=== PATIENT | female | born 1940 | race Caucasian/White ===

== ENCOUNTER → 2017-04-10 | Outpatient (CLI) | payer MEDICARE ==
--- NOTE | 2017-04-10 16:50 | US ---
EXAMINATION TYPE: US thyroid st tissue head/neck DATE OF EXAM: 04/10/2017 COMPARISON: 2013 CLINICAL HISTORY: E04.9 Goiter. GLAND SIZE: Right Lobe: 3.6 x 1.6 x 1.3 cm Overall Parenchyma: homogenous Left Lobe: 3.2 x 1.3 x 1.5 cm Overall Parenchyma: heterogeneous slightly Isthmus Thickness: 0.2 cm NODULES RIGHT: # of nodules measured on right: 1. 0.5 X 0.3 x 0.5 cm mixed nodule at the lower pole with well-defined margins; . This nodule is w ider than tall and shows no intranodular vascularity. Prior size: 0.5 x 0.3 x 0.5 cm 2. 0.5 X 0.5 x 0.4 cm solid nodule at the mid pole with well-defined margins; . This nodule is roun d and shows no intranodular vascularity. Prior size: no prior LEFT: # of nodules measured on left: 0 ISTHMUS: # of nodules measured in the isthmus:0 1Bilateral neck scanned, no evidence of lymphadenopathy. IMPRESSION: Stable solid hypoechoic 5 mm left thyroid nodule with additional 5 mm cystic nodule now visualized.
== END | disposition home or self-care (01) ==
LOC: RADUSWWP 15:56
PROVIDERS: ATTEND Family Medicine
DX: E04.2 Nontoxic multinodular goiter (principal)
CPT/HCPCS: 76536

== ENCOUNTER → 2017-11-17 | Outpatient (CLI) | payer MEDICARE ==
--- NOTE | 2017-11-17 14:28 | US ---
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 Goiter, follow up thyroid nodules Technique: Multiple sonographic images of the thyroid gland are obtained. FINDINGS: Right Lobe: 3.2 x 1.8 x 1.5 cm Overall Parenchyma: homogenous Left Lobe: 4.1 x 1.6 x 1.9 cm Overall Parenchyma: homogeneous Isthmus Thickness: 0.3 cm NODULES RIGHT: # of nodules measured on right: 2 1. 6 x 5 x 4 mm mixed nodule at the upper/mid pole with well-defined margins; . This nodule is wider than tall and shows no intranodular vascularity. Prior size: 0.5 x 0.5 x 0.4 cm 2. 0.4 X 0.3 x 0.4 cm mixed nodule at the lower pole with well-defined margins; suspected colloid cy st. This nodule is wider than tall and shows no intranodular vascularity. Prior size: 0.5 x 0.3 x 0.5 cm LEFT: # of nodules measured on left: 0 ISTHMUS: # of nodules measured in the isthmus: 0 Bilateral neck scanned, no evidence of lymphadenopathy. 2 nodules measured right thyroid lobe IMPRESSION: 2 nodules redemonstrated in the right lobe, the smaller measuring 4 mm is suspected to represent a co lloid cyst. The larger in the upper pole is relatively stable at 6 x 5 mm (versus 5 x 5 mm, previousl y) and is a mixed nodule. It does not meet criteria for FNA.
== END | disposition home or self-care (01) ==
LOC: RADUSWWP 13:12
PROVIDERS: ATTEND Family Medicine
DX: E04.2 Nontoxic multinodular goiter (principal)
CPT/HCPCS: 76536

== ENCOUNTER → 2018-12-09 | Outpatient (CLI) | payer MEDICARE ==
--- NOTE | 2018-12-10 09:18 | US ---
EXAMINATION TYPE: US thyroid st tissue head/neck DATE OF EXAM: 12/09/2018 COMPARISON: US 11/17/2017 CLINICAL HISTORY: 78-year-old female I65.23 Carotid Atherosclerosis, E04.2 Goiter. Follow up nodules TECHNIQUE: Multiple sonographic images of the thyroid gland are obtained. FINDINGS: GLAND SIZE: Right Lobe: 3.4 x 1.4 x 1.9 cm Overall Parenchyma: homogenous Left Lobe: 3.1 x 1.4 x 1.7 cm Overall Parenchyma: homogeneous Isthmus Thickness: 0.5 cm NODULES RIGHT: # of nodules measured on right: 2 1. 0.7 X 0.6 x 0.5 cm hypoechoic complex solid cystic nodule at the upper/mid pole with well-define d margins. This nodule is wider than tall and shows no intranodular vascularity. Prior size: 0.6 x 0.5 x 0.4 cm 2. 5 x 4 x 3 mm colloid cyst at the lower pole with well-defined margins. This nodule is wider than tall and shows no intranodular vascularity. Prior size: 4 x 4 x 3 mm LEFT: # of nodules measured on left: 0 ISTHMUS: # of nodules measured in the isthmus: 0 Bilateral neck scanned, no evidence of lymphadenopathy. IMPRESSION: 1. A 7 x 6 x 5 mm complex solid cystic nodule at the right upper and midpole is stable 2 mm larger in each dimension (6 x 5 x 4 mm, previously). Additional follow-up can be considered. 2. The other nodule on the right measures 5 mm and has the appearance of a benign colloid cyst.
--- NOTE | 2018-12-10 10:24 | US ---
EXAMINATION TYPE: US carotid duplex BILAT DATE OF EXAM: 12/09/2018 COMPARISON: NONE CLINICAL HISTORY: 78-year-old female I65.23 Carotid Atherosclerosis, E04.2 Goiter. TECHNIQUE: Carotid duplex ultrasound examination. Direct Doppler criteria was utilized. FINDINGS: EXAM MEASUREMENTS: RIGHT: Peak Systolic Velocity (PSV) cm/sec ----- Right CCA: 108.0 ----- Right ICA: 101.0 ----- Right ECA: 135 ICA/CCA ratio: 0.9 RIGHT: End Diastole cm/sec ----- Right CCA: 14.9 ----- Right ICA: 18.3 ----- Right ECA: 14.3 LEFT: Peak Systolic Velocity (PSV) cm/sec ----- Left CCA: 97.8 ----- Left ICA: 107.0 ----- Left ECA: 120.0 ICA/CCA ratio: 1.1 LEFT: End Diastole cm/sec ----- Left CCA: 14.3 ----- Left ICA: 16.3 ----- Left ECA: 12.2 VERTEBRALS (direction of flow): Right Vertebral: Antegrade Left Vertebral: Antegrade Rhythm: Normal Sand Technician notes: Mild amount of plaque visualized at bilateral bulbs. No elevated velocities, no si gnificant stenosis. IMPRESSION: No hemodynamically significant stenosis appreciated in either internal carotid artery. Criteria for Assigning % of Stenosis / Diameter reduction (Estimation based on the indirect measurements of the internal carotid artery velocities (ICA PSV). 1. Normal (no stenosis)=ICA PSV < 125 cm/s: ratio < 2.0: ICA EDV<40 cm/s. 2. Less than 50% stenosis=ICA PSV < 125 cm/s: ratio < 2.0: ICA EDV<40 cm/s. 3. 50 to 69% stenosis=ICA PSV of 125 to 230 cm/s: ration 2.0 ? 4.0: ICA EDV 40-100 cm/s. 4. Greater than 70% stenosis to near occlusion= ICA PSV > 230 cm/s: ratio > 4.0: ICA EDV > 100 cm/s. 5. Near occlusion= ICA PSV velocities may be low or undetectable: variable ratio and ICA EDV. 6. Total occlusion=unable to detect flow.
== END | disposition home or self-care (01) ==
LOC: RADUSWWP 16:14
PROVIDERS: ATTEND Family Medicine
DX: E04.2 Nontoxic multinodular goiter (principal); I65.23 Occlusion and stenosis of bilateral carotid arteries
CPT/HCPCS: 76536; 93880

== ENCOUNTER → 2019-09-09 | Outpatient (CLI) | payer MEDICARE ==
--- NOTE | 2019-09-10 06:52 | US ---
EXAMINATION TYPE: US carotid duplex BILAT DATE OF EXAM: 09/09/2019 COMPARISON: Carotid ultrasound December 09, 2018 CLINICAL HISTORY: E04.9 Thryoid nodule, I65.23 Carotid stenosis. Dizziness EXAM MEASUREMENTS: RIGHT: Peak Systolic Velocity (PSV) cm/sec ----- Right CCA: 70.3 ----- Right ICA: 103.0 ----- Right ECA: 127.0 ICA/CCA ratio: 1.5 RIGHT: End Diastole cm/sec ----- Right CCA: 13.6 ----- Right ICA: 21.5 ----- Right ECA: 15.5 LEFT: Peak Systolic Velocity (PSV) cm/sec ----- Left CCA: 79.8 ----- Left ICA: 122.4 ----- Left ECA: 125.0 ICA/CCA ratio: 1.5 LEFT: End Diastole cm/sec ----- Left CCA: 14.9 ----- Left ICA: 26.7 ----- Left ECA: 11.1 VERTEBRALS (direction of flow): Right Vertebral: Antegrade Left Vertebral: Antegrade Rhythm: Normal Mild plaque bilateral bifurcations. No evidence of significant stenosis IMPRESSION: No hemodynamically significant stenosis in either internal carotid artery. No significan t change from prior ultrasound. Criteria for Assigning % of Stenosis / Diameter reduction (Estimation based on the indirect measurements of the internal carotid artery velocities (ICA PSV). 1. Normal (no stenosis)=ICA PSV < 125 cm/s: ratio < 2.0: ICA EDV<40 cm/s. 2. Less than 50% stenosis=ICA PSV < 125 cm/s: ratio < 2.0: ICA EDV<40 cm/s. 3. 50 to 69% stenosis=ICA PSV of 125 to 230 cm/s: ration 2.0 ? 4.0: ICA EDV 40-100 cm/s. 4. Greater than 70% stenosis to near occlusion= ICA PSV > 230 cm/s: ratio > 4.0: ICA EDV > 100 cm/s. 5. Near occlusion= ICA PSV velocities may be low or undetectable: variable ratio and ICA EDV. 6. Total occlusion=unable to detect flow.
--- NOTE | 2019-09-10 06:55 | US ---
EXAMINATION TYPE: US thyroid st tissue head/neck DATE OF EXAM: 09/09/2019 COMPARISON: Thyroid ultrasound December 09, 2018 CLINICAL HISTORY: E04.9 Thryoid nodule, I65.23 Carotid stenosis. follow up thyroid nodules GLAND SIZE: Right Lobe: 3.4 x 1.8 x 1.9 cm Overall Parenchyma: homogenous Left Lobe: 4.3 x 1.5 x 2.0 cm Overall Parenchyma: homogeneous Isthmus Thickness: 0.3 cm NODULES RIGHT: # of nodules measured on right: 2 1. 0.8 X 0.5 x 0.5 cm mixed nodule at the upper/mid pole with well-defined margins; . This nodule is wider than tall and shows no intranodular vascularity. Prior size: 0.7 x 0.6 x 0.5 cm 2. 0.4 X 0.3 x 0.4 cm colloid cystic nodule at the lower pole with well-defined margins; . This no dule is wider than tall and shows no intranodular vascularity. Prior size: 0.5 x 0.4 x 0.3 cm LEFT: # of nodules measured on left: 0 ISTHMUS: # of nodules measured in the isthmus: 0 Bilateral neck scanned, no evidence of lymphadenopathy. There is homogeneous slightly small size thyroid with scattered small right-sided nodules redemonstra danitza. IMPRESSION: As above. No significant change from most recent ultrasound. No greater than 1 cm nodules identified.
== END | disposition home or self-care (01) ==
LOC: RADUSWWP 16:08
PROVIDERS: ATTEND Family Medicine
DX: E04.1 Nontoxic single thyroid nodule (principal); I65.23 Occlusion and stenosis of bilateral carotid arteries
CPT/HCPCS: 76536; 93880

== ENCOUNTER → 2020-02-03 | Outpatient (CLI) | payer MEDICARE ==
--- NOTE | 2020-02-03 08:38 | US ---
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 GLAND SIZE: Right Lobe: 3.9 x 1.7 x 1.2 cm Overall Parenchyma: homogenous Left Lobe: 4.2 x 1.9 x 2.2 cm Overall Parenchyma: homogeneous Isthmus Thickness: 0.3 cm NODULES RIGHT: # of nodules measured on right: 2 1. 0.7 X 0.5 x 0.6 cm mixed nodule at the upper/mid pole with well-defined margins. This nodule is w ider than tall and shows no intranodular vascularity. Prior size: 0.8 x 0.5 x 0.5 cm 2. 0.4 X 0.3 x 0.4 cm cystic nodule at the lower pole with well- defined margins . This nodule is wi talib than tall and shows no intranodular vascularity. Prior size: 0.4 x 0.3 x 0.4 cm LEFT: # of nodules measured on left: 0 ISTHMUS: # of nodules measured in the isthmus: 0 Bilateral neck scanned, no evidence of lymphadenopat hy. There is homogeneous slightly small size thyroid with scattered small right- sided nodules redemo nstrated. Bilateral neck scanned, no evidence of lymphadenopathy. Normal size and fairly homogeneous thyroid with few small right-sided nodules. No definitive greater than 1 cm or enlarging nodules. IMPRESSION: Overall stable findings. No suspicious greater than 1 cm nodules.
== END | disposition home or self-care (01) ==
LOC: RADUSWWP 07:31
PROVIDERS: ATTEND Family Medicine
DX: E04.2 Nontoxic multinodular goiter (principal)
CPT/HCPCS: 76536

== ENCOUNTER 2020-05-25 10:44 | Day surgery (SDC) | payer MEDICARE ==
[2020-05-24 08:59] VITALS: BMI 36.8
[~2020-05-25 10:44] MED LIST: ALPRAZolam 0.25 MG TAB PO PRN; ALPRAZolam 0.5 MG TAB PO PRN; ASPIRIN 325 MG TAB PO STA; ATORVASTATIN 80 MG TAB PO STA; NITROGLYCERIN SL TABS 0.4 MG TAB SUBLINGUAL PRN; SODIUM CHLORIDE 0.9% 1,000 ML in EMPTY BAG 1 BAG IV ONE
[2020-05-25] MEDS ORDERED: SODIUM CHLORIDE 0.9% 1,000 ML IV ONE (11:12)
[2020-05-25 11:14] LABS: Glucose,Whole Blood 148 mg/dL (75-99)
[2020-05-25 11:24] VITALS: RESP 16; TEMP 98.8
[2020-05-25] MEDS ORDERED: fentaNYL (PF) 50 MCG/ML 2 ML AMP IV ONE (12:21)
[2020-05-25] MEDS ORDERED: LIDOCAINE 1% INJ 10MG/ML (20 ML MDV) SQ ONE (12:24)
[2020-05-25] MEDS ORDERED: MIDAZOLAM 2 MG/2 ML VIAL IV ONE (12:25)
[2020-05-25] MEDS ORDERED: VERAPAMIL SYRINGE (5 MG/10 ML) INTRAARTER ONE (12:27)
[2020-05-25] MEDS ORDERED: HEPARIN SODIUM 1,000 UN/ML (10ML VL) IV ONE (12:33)
[2020-05-25] MEDS ORDERED: IOPAMIDOL-370 125ML BTL INJ ONE (12:38)
[2020-05-25] MEDS ORDERED: RX INFO: IV CONTRAST WAS GIVEN 1 EACH MISC MISCELLANE PRN (12:52)
[2020-05-25] MEDS ORDERED: SODIUM CHLORIDE 0.9% 1,000 ML IV SCH (13:00)
--- NOTE | 2020-05-25 14:42 | CC ---
CARDIAC CATHETERIZATION REPORT Mrs. Case is a 79-year-old female with known history of hypertension, hyperlipidemia, diabetes mellitus, who has been complaining of progressive symptoms of dyspnea on exertion. As part of her evaluation, she underwent myocardial perfusion imaging that revealed evidence of inducible ischemia. In view of that, recommendation made regarding cardiac catheterization. The procedures, risks, and complication were discussed with the patient who is in full understanding and agreement. 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 Using Xylocaine anesthesia and Seldinger technique, a 6-Haitian sheath was introduced in the right radial artery. Selective right and left coronary angiography performed using 5-Haitian 4 bend right and left Ashley catheter, multiple views of the coronary artery including hemiaxial views were obtained. Following that, the right Ashley catheter was used to cross the aortic valve, end-diastolic pressure was calculated. Following that, catheter and sheaths were removed. Hemostasis was obtained with deployment of a TR band. There was no immediate complication. Patient is returned to her room in stable condition. Of note, the patient received 5000 units of intravenous heparin as well as intra-arterial verapamil. FINDINGS: LEFT MAIN: This is a short size vessel, trifurcating into left circumflex, ramus intermedius and left anterior descending artery. Left main coronary artery has no evidence of high-grade stenosis. LEFT ANTERIOR DESCENDING ARTERY: This is a large-sized vessel, reaching toward the apex. Tapers down distal third. The left anterior descending artery as well as branches have no evidence of high-grade stenosis. RAMUS INTERMEDIUS: This is a large-sized vessel, reaching to the apical lateral wall. The ramus intermedius has no evidence of high-grade stenosis. LEFT CIRCUMFLEX: This is a nondominant large size vessel, giving rise to a large obtuse marginal branch. The left circumflex as well as branches have no evidence of obstructive coronary artery disease. RIGHT CORONARY ARTERY: This is a large dominant vessel, bifurcating distally into PDA and posterolateral segment and branches. The right coronary artery in mid segment has 10% to 20% plaque. The rest of the vessel has no high-grade stenosis. LEFT VENTRICULOGRAM: Left ventriculogram was not performed. HEMODYNAMICS: There was no gradient across the aortic valve. The left ventricular end- diastolic pressure was 12-14 mmHg. CONCLUSION: 1. 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 2. Mild calcification of the LAD. RECOMMENDATION: In view of finding anatomy, I recommend continue medical therapy with aggressive risk modifications being initiated. Those findings and recommendation were discussed with the patient and her family and they are in full understanding and agreement. MMBHUMI / JAYDEN: [id number] /
[2020-05-25 14:47] VITALS: BP 131/55; PULSE 87
[2020-05-25] MEDS ORDERED: REPAGLINIDE 1 MG TAB PO SCH (17:30)
[2020-05-25] MEDS ORDERED: INSULIN DETEMIR (LEVEMIR) 100 UNIT/ML SYR SQ SCH (21:00)
[2020-05-26] MEDS ORDERED: PANTOPRAZOLE 40 MG TABLET PO SCH (07:30)
[2020-05-26] MEDS ORDERED: PIOGLITAZONE 45 MG TAB PO SCH (09:00)
[2020-05-26] MEDS ORDERED: amLODIPine 5 MG TAB PO SCH (09:00)
[2020-05-26] MEDS ORDERED: ASPIRIN 81 MG PO SCH (09:00)
[2020-05-26] MEDS ORDERED: LOSARTAN 50 MG TAB PO SCH (09:00)
[2020-05-27] MEDS ORDERED: ATORVASTATIN 10 MG TAB PO SCH (09:00)
== END 2020-05-25 16:20 | disposition home or self-care (01) ==
LOC: CATHCVL 10:44
PROVIDERS: ATTEND Internal Medicine Interventional Cardiology
DX: I25.10 Atherosclerotic heart disease of native coronary artery without angina pectoris (principal); I25.84 Coronary atherosclerosis due to calcified coronary lesion; I10 Essential (primary) hypertension; E78.00 Pure hypercholesterolemia, unspecified; E11.9 Type 2 diabetes mellitus without complications; E78.2 Mixed hyperlipidemia; R94.39 Abnormal result of other cardiovascular function study; G47.30 Sleep apnea, unspecified; Z90.10 Acquired absence of unspecified breast and nipple; Z90.710 Acquired absence of both cervix and uterus; Z98.890 Other specified postprocedural states; Z87.891 Personal history of nicotine dependence; Z79.82 Long term (current) use of aspirin; Z79.4 Long term (current) use of insulin; Z79.899 Other long term (current) drug therapy; Z88.1 Allergy status to other antibiotic agents
CPT/HCPCS: 93458; C1769 ×2; C1894; J2250; J2001; J3010; J1644; Q9967

== ENCOUNTER 2020-12-03 20:02 | Inpatient (IN) | payer MEDICARE ==
[2020-12-03] MEDS ORDERED: SODIUM CHLORIDE 0.9% 1,000 ML IV STA (20:30)
[2020-12-03 21:18] LABS: Calcium 9.8 mg/dL (8.4-10.2)
[2020-12-03 21:21] LABS: INR 2.4 (<1.2); Partial Thromboplastin Time 28.8 sec (22.0-30.0)
[2020-12-03 21:34] LABS: Albumin 3.2 g/dL (3.5-5.0); Magnesium 1.8 mg/dL (1.6-2.3); Potassium 5.6 mmol/L (3.5-5.1); Total Bilirubin 3.2 mg/dL (0.2-1.3); Total Protein 7.5 g/dL (6.3-8.2)
--- NOTE | 2020-12-03 21:45 | XR ---
EXAMINATION TYPE: XR chest 2V DATE OF EXAM: 12/03/2020 COMPARISON: NONE HISTORY: Weakness TECHNIQUE: 2 views FINDINGS: Heart is enlarged. There is pulmonary interstitial and airspace edema. There is blunting of costophrenic angles. There are chest leads. IMPRESSION: Cardiomegaly with some pulmonary edema. This could relate to congestive heart failure or interstitial pneumonia.
[2020-12-03 22:31] LABS: Anisocytosis Slight; HCT 42.1 % (34.0-46.0); HGB 12.8 gm/dL (11.4-16.0); Hypochromasia Marked; MCH 24.1 pg (25.0-35.0); MCHC 30.4 g/dL (31.0-37.0); MCV 79.3 fL (80.0-100.0); Mean Platelet Volume 9.6; Platelet Count 136 k/uL (150-450); Poikilocytosis Slight; RBC 5.32 m/uL (3.80-5.40); RDW 16.8 % (11.5-15.5); WBC 16.8 k/uL (3.8-10.6)
[2020-12-03 22:56] LABS: Appearance,Urine Cloudy (Clear); Bacteria,Urine Few /hpf; Bilirubin,Urine Negative (Negative); Blood,Urine Negative (Negative); Cellular Casts,Urine 3 /lpf (0); Color,Urine Yellow; Glucose,Urine (UA) Negative (Negative); Hyaline Casts,Urine 30 /lpf (0-2); Ketones,Urine Trace (Negative); Leukocyte Esterase,Urine Large (Negative); Mucus,Urine Rare /hpf; Nitrite,Urine Negative (Negative); PH, Urine 5.5 (5.0-8.0); Protein,Urine Trace (Negative); RBC,Urine 10 /hpf (0-5); Squamous Epithelial Cell,Urine 13 /hpf (0-4); WBC,Urine 20 /hpf (0-5)
--- NOTE | 2020-12-03 23:13 | ED ---
Weakness HPI - General Chief complaint: Weakness Stated complaint: weakness Time Seen by Provider: 12/03/20 20:05 Source: patient, EMS Mode of arrival: ambulatory Limitations: no limitations - History of Present Illness Initial comments: 80-year-old female presents with history of diabetes, breast cancer, high blood pressure, fatty liver who presents emergency Department with reported generalized weakness. Patient reports that she has felt weak for the past one week. Today the patient sustained a fall. Denies hitting her head or losing consciousness. She lives with her son who witnessed this however was unable to get her up. This was called and they found the patient to have a low blood pressure reading. Patient arrives and is found to have normal vital signs. States that she's had a decreased oral intake. States she hasn't been eating or drinking as she doesn't have an appetite. Denies weight loss. No abdominal pain. Denies chest pain or cough. No fevers or chills. Denies vomiting. She denies any injuries from the fall. No pain in her arms or legs. No sick contacts. No other alleviating, precipitating or modifying factors - Related Data Home Medications Medication Instructions Recorded Confirmed Aspirin 81 mg PO DAILY 01/25/15 12/03/20 Cholecalciferol [Vitamin D3] 1,000 unit PO DAILY 01/25/15 12/03/20 Furosemide [Lasix] 20 mg PO Q48H 01/25/15 12/03/20 Omeprazole [PriLOSEC] 20 mg PO DAILY 01/25/15 12/03/20 Potassium Chloride [Klor-Con 20] 10 meq PO Q48H 01/25/15 12/03/20 metFORMIN HCL [Glucophage] 500 mg PO BID 01/25/15 12/03/20 Insulin Glargine [Lantus] 22 unit SQ HS 05/24/20 12/03/20 Pioglitazone HCl 45 mg PO DAILY 05/24/20 12/03/20 amLODIPine [Norvasc] 5 mg PO DAILY 05/24/20 12/03/20 Losartan Potassium 100 mg PO DAILY 12/03/20 12/03/20 Simvastatin [Zocor] 20 mg PO DAILY 12/04/20 12/04/20 Allergies Allergy/AdvReac Type Severity Reaction Status Date / Time cefazolin sodium [From [facility] [place]] Allergy Itching/hiv Verified 12/03/20 22:45 es Review of Systems ROS Statement: Those systems with pertinent positive or pertinent negative responses have been documented in the HPI. ROS Other: All systems not noted in ROS Statement are negative. Past Medical History Past Medical History: Cancer, Diabetes Mellitus, GERD/Reflux, Hyperlipidemia, Hypertension, Liver Disease, Skin Disorder, Sleep Apnea/CPAP/BIPAP Additional Past Medical History / Comment(s): hx. "fatty liver", hx breast cancer, HIALTAL HERNIA, "little lumps on chest", thyroid nodule, urinary leakage History of Any Multi-Drug Resistant Organisms: None Reported Past Surgical History: Breast Surgery, Hysterectomy Additional Past Surgical History / Comment(s): consuelo. mastectomy, surgery on vocal cords to remove lumps, consuelo cataract surgery with lens implants Past Anesthesia/Blood Transfusion Reactions: No Reported Reaction Past Psychological History: No Psychological Hx Reported Smoking Status: Former smoker Past Alcohol Use History: None Reported Past Drug Use History: None Reported - Past Family History Mother Family Medical History: No Reported History General Exam Limitations: altered mental status (poor historian) General appearance: alert, in no apparent distress Head exam: Present: atraumatic, normocephalic, normal inspection Eye exam: Present: normal appearance, PERRL, EOMI. Absent: scleral icterus, conjunctival injection, periorbital swelling ENT exam: Present: normal exam, mucous membranes moist Neck exam: Present: normal inspection. Absent: tenderness, meningismus, lympha denopathy Respiratory exam: Present: normal lung sounds bilaterally. Absent: respiratory distress, wheezes, rales, rhonchi, stridor Cardiovascular Exam: Present: regular rate, normal rhythm, normal heart sounds. Absent: systolic murmur, diastolic murmur, rubs, gallop, clicks GI/Abdominal exam: Present: soft, normal bowel sounds. Absent: distended, tenderness, guarding, rebound, rigid Extremities exam: Present: normal inspection, full ROM, normal capillary refill. Absent: tenderness, pedal edema, joint swelling, calf tenderness Back exam: Present: normal inspection Neurological exam: Present: alert, oriented X3, CN II-XII intact Psychiatric exam: Present: normal affect, normal mood Skin exam: Present: warm, dry, intact, normal color. Absent: rash Course Vital Signs 12/03/20 12/03/20 12/04/20 20:05 23:00 03:33 Temperature 97.8 F Pulse Rate 92 95 96 Respiratory 18 18 22 Rate Blood Pressure 146/64 143/59 140/64 O2 Sat by Pulse 96 92 L 95 Oximetry 12/04/20 12/04/20 12/04/20 06:00 07:27 12:30 Temperature 98.9 F Pulse Rate 75 97 79 Respiratory 19 18 18 Rate Blood Pressure 131/64 140/73 115/55 O2 Sat by Pulse 94 L 95 100 Oximetry 12/04/20 17:36 Temperature Pulse Rate 89 Respiratory 16 Rate Blood Pressure 122/89 O2 Sat by Pulse 98 Oximetry EKG Findings - EKG Comments: EKG Findings:: EKG demonstrates a sinus rhythm with a ventricular rate 93. NJ interval 140. QRS 130. QTC at 537. Right bundle branch block. No acute ST segment elevations Medical Decision Making - Medical Decision Making On arrival patient is placed into room 1. Thorough history and physical exam was performed. IV is established and the patient is given a liter bolus of normal saline followed by 75 mL per hour. Patient denies history of heart disease. Laboratory studies are conducted. Patient is a white count of 16.8. INR 2.4. Elevated bilirubin at 3.2. AST 726, AST 301. Urinalysis demonstrates large leukocyte esterase with few bacteria. Covid is not detected. Chest x-ray demonstrates cardiomegaly with some pulmonary edema. Due to the elevated liver enzymes the patient is sent over for CT for abdomen and pelvis which demonstrates extensive interstitial nodular pulmonary infiltrates. Significant heterogenicity throughout the liver. Possible lymphangitic metastatic disease in the lungs. Hepatic metastatic disease also possible. Consider severe hepatitis. Gallbladder suggestive of cholecystitis. Blood cultures are obtained and the patient is initiated on Levaquin and Flagyl. A bladder ultrasound is ordered. I spoke with Dr. Oviedo who agreed to admit the patient. I will place GI and surgery on consult. Patient made NPO. She remained in stable condition awaiting a bed - Lab Data Result diagrams: 12/09/20 03:00 12/09/20 03:00 Lab Results 12/03/20 12/03/20 12/03/20 Range/Units 20:55 20:55 20:55 WBC (3.8-10.6) k/uL RBC (3.80-5.40) m/uL Hgb (11.4-16.0) gm/dL Hct (34.0-46.0) % MCV (80.0-100.0) fL MCH (25.0-35.0) pg MCHC (31.0-37.0) g/dL RDW (11.5-15.5) % Plt Count (150-450) k/uL MPV Neutrophils % (Manual) % Band Neuts % (Manual) % Lymphocytes % (Manual) % Monocytes % (Manual) % Eosinophils % (Manual) % Neutrophils # (Manual) (1.3-7.7) k/uL Lymphocytes # (Manual) (1.0-4.8) k/uL Monocytes # (Manual) (0-1.0) k/uL Eosinophils # (Manual) (0-0.7) k/uL Nucleated RBCs (0-0) /100 WBC Manual Slide Review Toxic Granulation Hypochromasia Poikilocytosis Poikilocytosis (manual Anisocytosis Anisocytosis (manual) Target Cells Ovalocytes Crenated Cell Fragmented RBCs PT 23.0 H (9.0-12.0) sec INR 2.4 H (<1.2) APTT 28.8 (22.0-30.0) sec Sodium 137 (137-145) mmol/L Potassium 5.6 H (3.5-5.1) mmol/L Chloride 108 H (98-107) mmol/L Carbon Dioxide 12 L (22-30) mmol/L Anion Gap 17 mmol/L BUN 37 H (7-17) mg/dL Creatinine 0.90 (0.52-1.04) mg/dL Est GFR (CKD-EPI)AfAm 71 (>60 ml/min/1.73 sqM) Est GFR (CKD-EPI)NonAf 62 (>60 ml/min/1.73 sqM) Glucose 154 H (74-99) mg/dL Calcium 9.8 (8.4-10.2) mg/dL Magnesium 1.8 (1.6-2.3) mg/dL Total Bilirubin 3.2 H (0.2-1.3) mg/dL AST 726 H (14-36) U/L ALT 301 H (4-34) U/L Alkaline Phosphatase 240 H (38-126) U/L Creatine Kinase 61 (30-135) U/L Troponin I <0.012 (0.000-0.034) ng/mL NT-Pro-B Natriuret Pep pg/mL Total Protein 7.5 (6.3-8.2) g/dL Albumin 3.2 L (3.5-5.0) g/dL TSH 1.920 (0.465-4.680) mIU/L Urine Color Urine Appearance (Clear) Urine pH (5.0-8.0) Ur Specific [place] (1.001-1.035) Urine Protein (Negative) Urine Glucose (UA) (Negative) Urine Ketones (Negative) Urine Blood (Negative) Urine Nitrite (Negative) Urine Bilirubin (Negative) Urine Urobilinogen (<2.0) mg/dL Ur Leukocyte Esterase (Negative) Urine RBC (0-5) /hpf Urine WBC (0-5) /hpf Ur Squamous Epith Cells (0-4) /hpf Urine Bacteria (None) /hpf Cellular Casts (0) /lpf Hyaline Casts (0-2) /lpf Urine Mucus (None) /hpf Coronavirus (PCR) (Not Detectd) 12/03/20 12/03/20 12/03/20 Range/Units 20:55 22:09 22:30 WBC 16.8 H (3.8-10.6) k/uL RBC 5.32 (3.80-5.40) m/uL Hgb 12.8 (11.4-16.0) gm/dL Hct 42.1 (34.0-46.0) % MCV 79.3 L (80.0-100.0) fL MCH 24.1 L (25.0-35.0) pg MCHC 30.4 L (31.0-37.0) g/dL RDW 16.8 H (11.5-15.5) % Plt Count 136 L (150-450) k/uL MPV 9.6 Neutrophils % (Manual) 82 % Band Neuts % (Manual) 5 % Lymphocytes % (Manual) 5 % Monocytes % (Manual) 7 % Eosinophils % (Manual) 1 % Neutrophils # (Manual) 14.60 H (1.3-7.7) k/uL Lymphocytes # (Manual) 0.84 L (1.0-4.8) k/uL Monocytes # (Manual) 1.18 H (0-1.0) k/uL Eosinophils # (Manual) 0.17 (0-0.7) k/uL Nucleated RBCs 0 (0-0) /100 WBC Manual Slide Review Performed Toxic Granulation Present Hypochromasia Marked Poikilocytosis Slight Poikilocytosis (manual Present Anisocytosis Slight Anisocytosis (manual) Present Target Cells Present Ovalocytes Present Crenated Cell Present Fragmented RBCs Present PT (9.0-12.0) sec INR (<1.2) APTT (22.0-30.0) sec Sodium (137-145) mmol/L Potassium (3.5-5.1) mmol/L Chloride (98-107) mmol/L Carbon Dioxide (22-30) mmol/L Anion Gap mmol/L BUN (7-17) mg/dL Creatinine (0.52-1.04) mg/dL Est GFR (CKD-EPI)AfAm (>60 ml/min/1.73 sqM) Est GFR (CKD-EPI)NonAf (>60 ml/min/1.73 sqM) Glucose (74-99) mg/dL Calcium (8.4-10.2) mg/dL Magnesium (1.6-2.3) mg/dL Total Bilirubin (0.2-1.3) mg/dL AST (14-36) U/L ALT (4-34) U/L Alkaline Phosphatase (38-126) U/L Creatine Kinase (30-135) U/L Troponin I (0.000-0.034) ng/mL NT-Pro-B Natriuret Pep 370 pg/mL Total Protein (6.3-8.2) g/dL Albumin (3.5-5.0) g/dL TSH (0.465-4.680) mIU/L Urine Color Yellow Urine Appearance Cloudy H (Clear) Urine pH 5.5 (5.0-8.0) Ur Specific [place] 1.010 (1.001-1.035) Urine Protein Trace H (Negative) Urine Glucose (UA) Negative (Negative) Urine Ketones Trace H (Negative) Urine Blood Negative (Negative) Urine Nitrite Negative (Negative) Urine Bilirubin Negative (Negative) Urine Urobilinogen 4.0 (<2.0) mg/dL Ur Leukocyte Esterase Large H (Negative) Urine RBC 10 H (0-5) /hpf Urine WBC 20 H (0-5) /hpf Ur Squamous Epith Cells 13 H (0-4) /hpf Urine Bacteria Few H (None) /hpf Cellular Casts 3 (0) /lpf Hyaline Casts 30 H (0-2) /lpf Urine Mucus Rare H (None) /hpf Coronavirus (PCR) (Not Detectd) 12/03/20 Range/Units 22:30 WBC (3.8-10.6) k/uL RBC (3.80-5.40) m/uL Hgb (11.4-16.0) gm/dL Hct (34.0-46.0) % MCV (80.0-100.0) fL MCH (25.0-35.0) pg MCHC (31.0-37.0) g/dL RDW (11.5-15.5) % Plt Count (150-450) k/uL MPV Neutrophils % (Manual) % Band Neuts % (Manual) % Lymphocytes % (Manual) % Monocytes % (Manual) % Eosinophils % (Manual) % Neutrophils # (Manual) (1.3-7.7) k/uL Lymphocytes # (Manual) (1.0-4.8) k/uL Monocytes # (Manual) (0-1.0) k/uL Eosinophils # (Manual) (0-0.7) k/uL Nucleated RBCs (0-0) /100 WBC Manual Slide Review Toxic Granulation Hypochromasia Poikilocytosis Poikilocytosis (manual Anisocytosis Anisocytosis (manual) Target Cells Ovalocytes Crenated Cell Fragmented RBCs PT (9.0-12.0) sec INR (<1.2) APTT (22.0-30.0) sec Sodium (137-145) mmol/L Potassium (3.5-5.1) mmol/L Chloride (98-107) mmol/L Carbon Dioxide (22-30) mmol/L Anion Gap mmol/L BUN (7-17) mg/dL Creatinine (0.52-1.04) mg/dL Est GFR (CKD-EPI)AfAm (>60 ml/min/1.73 sqM) Est GFR (CKD-EPI)NonAf (>60 ml/min/1.73 sqM) Glucose (74-99) mg/dL Calcium (8.4-10.2) mg/dL Magnesium (1.6-2.3) mg/dL Total Bilirubin (0.2-1.3) mg/dL AST (14-36) U/L ALT (4-34) U/L Alkaline Phosphatase (38-126) U/L Creatine Kinase (30-135) U/L Troponin I (0.000-0.034) ng/mL NT-Pro-B Natriuret Pep pg/mL Total Protein (6.3-8.2) g/dL Albumin (3.5-5.0) g/dL TSH (0.465-4.680) mIU/L Urine Color Urine Appearance (Clear) Urine pH (5.0-8.0) Ur Specific [place] (1.001-1.035) Urine Protein (Negative) Urine Glucose (UA) (Negative) Urine Ketones (Negative) Urine Blood (Negative) Urine Nitrite (Negative) Urine Bilirubin (Negative) Urine Urobilinogen (<2.0) mg/dL Ur Leukocyte Esterase (Negative) Urine RBC (0-5) /hpf Urine WBC (0-5) /hpf Ur Squamous Epith Cells (0-4) /hpf Urine Bacteria (None) /hpf Cellular Casts (0) /lpf Hyaline Casts (0-2) /lpf Urine Mucus (None) /hpf Coronavirus (PCR) Not Detected (Not Detectd) Disposition Clinical Impression: Generalized weakness, Fall, Transaminitis, UTI (urinary tract infection) Disposition: ADMITTED IP TO THIS [facility] Condition: Stable Is patient prescribed a controlled substance at d/c from ED?: No Decision to Admit Reason: Admit from EC Decision Date: 12/04/20 Decision Time: 00:15
[2020-12-03] MEDS ORDERED: LEVOFLOXACIN 750MG-D5W PMX 750 MG in DEXTROSE/WATER 1 150ML.BAG IVPB STA (23:22)
[2020-12-03] MEDS ORDERED: metroNIDAZOLE-NS PMX 500 MG in SALINE 1 100ML.BAG IVPB STA (23:22)
--- NOTE | 2020-12-03 23:39 | CT ---
EXAMINATION TYPE: CT abdomen pelvis w con DATE OF EXAM: 12/03/2020 COMPARISON: 05/17/2013 HISTORY: Abdominal pain CT DLP: 1432 mGycm Automated exposure control for dose reduction was used. CONTRAST: Performed with IV Contrast, patient injected with 100 mL of Isovue 370. Images obtained from the diaphragm to the floor the pelvis with IV contrast. There is moderate interstitial infiltrates at the lung bases with small pleural effusions. There are numerous nodular densities in the lower lung morris. The largest measures 1.5 cm in the subpleural ri ght middle lobe. There is no calcification. Heart is enlarged. There is small pericardial effusion. There is moderate heterogeneity throughout the liver. Gallbladder is dilated and measures 5.3 cm. The bile ducts are not dilated. There is no evidence of pancreatic mass. Spleen is intact. There is no adrenal mass. There is 3 cm cortical cyst upper pole left kidney. There is no hydronephro sis. Ureters are not dilated. Delayed images show very little contrast excretion. There is no retrope ritoneal adenopathy. Bladder distends smoothly. There is no inguinal hernia. There is hysterectomy. T here is tiny amount of fluid in the pelvis. There is no mesenteric edema. There is no ascites or free air. There is no evidence of bowel obstruct ion. The lumbar vertebra have normal alignment. There is vacuum disc at L4-5. The bony pelvis appears inta ct. Hip joints are intact. IMPRESSION: Extensive interstitial and nodular pulmonary infiltrates in the visualized lower lung morris. Small p leural effusions. Significant heterogeneity throughout the liver. This could relate to lymphangitic metastatic disease in the lungs. Hepatic metastatic disease is poss ible. Also consider severe hepatitis. Dilated gallbladder suggestive of cholecystitis. Decreased renal excretion suggestive of renal failure. Abnormalities appear new compared to old exam.
[2020-12-03 23:41] LABS: Band Neutrophils % 5 %; Eosinophils # (M) 0.17 k/uL (0-0.7); Lymphocytes # (M) 0.84 k/uL (1.0-4.8); Monocytes # (M) 1.18 k/uL (0-1.0); Neutrophils % (M) 82 %; Nucleated Red Blood Cells 0 /100 WBC (0-0); Total Cells Counted 100; Toxic Granulation Present
[2020-12-03 23:42] LABS: Anisocytosis (M) Present; Crenated RBC Present; Ovalocytes Present; Poikilocytosis (M) Present; RBC Fragments Present; Target Cells Present
[2020-12-04] MEDS ORDERED: NALOXONE 0.4 MG/ML 1 ML VIAL IV PRN (00:15)
[2020-12-04] MEDS: SODIUM CHLORIDE 0.9% 1,000 ML IV SCH ×2 (01:17→14:33)
[2020-12-04] MEDS: ASPIRIN 81 MG PO SCH (08:20)
[2020-12-04] MEDS: LOSARTAN 50 MG TAB PO SCH (08:20)
[2020-12-04] MEDS: amLODIPine 5 MG TAB PO SCH (08:21)
[2020-12-04] MEDS: PANTOPRAZOLE 40 MG TABLET PO SCH (08:21)
--- NOTE | 2020-12-04 08:48 | US ---
EXAMINATION TYPE: US gallbladder DATE OF EXAM: 12/04/2020 COMPARISON: CT 12/03/2020 CLINICAL HISTORY: 80-year-old female cholecystitis. Abnormal CT, patient denies abd pain, rolled on h er left side, does not respond to questioning. TECHNIQUE: Multiple sonographic images of the right upper quadrant are obtained. FINDINGS: Large patient body habitus limits detailed evaluation of the structures. EXAM MEASUREMENTS: Liver Length: 18.9 cm Gallbladder Wall: 0.3 cm CBD: 0.8 cm Right Kidney: 10.8 x 4.8 x 5.1 cm Pancreas: not seen due to bowel gas Liver: heterogeneous, lobular contour, difficult to penetrate Gallbladder: Hydropic measuring 11.4 x 5.1 cm. Sludge seen toward neck. No surrounding fluid. Evidence for sonographic Gr's sign: no CBD: wnl Right Kidney: wnl [employer] notes:internal echoes within main portal vein and left portal vein, no flow indicated o n doppler assessment, unable to penetrate to image right portal vein IMPRESSION: 1. Cirrhotic morphology of the liver. There is extensive underlying heterogeneity that limits ultraso und assessment for any focal lesions. 2. Unable to obtain color or spectral flow within either the main portal or left portal veins. The ri ght portal vein could not be adequately assessed. Unable to exclude portal venous thrombosis based on this exam. Recommend dynamic contrast enhanced liver MRI for further evaluation. 3. Gallbladder hydrops with sludge. The wall is borderline thickened. Findings may relate to cirrhosi s and fasting state. Further clinical correlation recommended for potential acute cholecystitis. HIDA scan can be considered if further imaging evaluation is desired. 4. Bile duct is mildly dilated at 8 mm, acceptable given patient's age.
[2020-12-04 09:37] LABS: ALT 320 U/L (4-34); AST 694 U/L (14-36); African American GFR (CKD) 79 (>60 ml/min/1.73 sqM); Albumin 2.7 g/dL (3.5-5.0); Albumin/Globulin Ratio 0.6; Alkaline Phosphatase 221 U/L (38-126); Amylase 38 U/L (30-110); Anion Gap 9 mmol/L; Blood Urea Nitrogen 37 mg/dL (7-17); Calcium 9.7 mg/dL (8.4-10.2); Carbon Dioxide 21 mmol/L (22-30); Chloride 111 mmol/L (98-107); Globulin 4.3 g/dL; Glucose 139 mg/dL (74-99); Lipase 190 U/L (23-300); Non-African American GFR(CKD) 69 (>60 ml/min/1.73 sqM); Potassium 4.3 mmol/L (3.5-5.1); Sodium 141 mmol/L (137-145)
[2020-12-04] MEDS: CHOLECALCIFEROL 25 MCG (1000 IU) TABLET PO SCH (11:03)
--- NOTE | 2020-12-04 12:25 | P.GSCN ---
History of Present Illness Consult date: 12/04/20 Reason for Consult: Abnormal liver function tests, hydrops of the gallbladder History of present illness: The patient is a 80-year-old female who presented to the emergency department after falling. She's been very weak for approximately the last week. Patient has not had much of an appetite, hasn't been drinking well. General malaise. D enies any abdominal pain, nausea or vomiting. Bowels have been moving normally, no blood in the stool or dark tarry stool. Denies heartburn or indigestion denies chest pain or shortness of breath. Admits to easy bruising. The patient's unsure whether she takes Coumadin. Denies any history of jaundice, acholic stool or tea-colored urine. Denies any previous episodes of severe abdominal pain in the right upper quadrant or fatty food dyscrasia Review of Systems All systems: negative Past Medical History Past Medical History: Cancer, Diabetes Mellitus, GERD/Reflux, Hyperlipidemia, Hypertension, Liver Disease, Skin Disorder, Sleep Apnea/CPAP/BIPAP Additional Past Medical History / Comment(s): hx. "fatty liver", hx breast cancer but the patient doesn't remember when her breast cancer was treated, HIATAL HERNIA, "little lumps on chest", thyroid nodule, urinary leakage History of Any Multi-Drug Resistant Organisms: None Reported Past Surgical History: Breast Surgery, Hysterectomy Additional Past Surgical History / Comment(s): consuelo. mastectomy, surgery on vocal cords to remove lumps, consuelo cataract surgery with lens implants Past Anesthesia/Blood Transfusion Reactions: No Reported Reaction Past Psychological History: No Psychological Hx Reported Smoking Status: Former smoker Past Alcohol Use History: None Reported Past Drug Use History: None Reported - Past Family History Mother Family Medical History: No Reported History Medications and Allergies Home Medications Medication Instructions Recorded Confirmed Type Aspirin 81 mg PO DAILY 01/25/15 12/03/20 History Cholecalciferol [Vitamin D3] 1,000 unit PO DAILY 01/25/15 12/03/20 History Furosemide [Lasix] 20 mg PO Q48H 01/25/15 12/03/20 History Omeprazole [PriLOSEC] 20 mg PO DAILY 01/25/15 12/03/20 History Potassium Chloride [Klor-Con 20] 10 meq PO Q48H 01/25/15 12/03/20 History metFORMIN HCL [Glucophage] 500 mg PO BID 01/25/15 12/03/20 History Insulin Glargine [Lantus] 22 unit SQ HS 05/24/20 12/03/20 History Pioglitazone HCl 45 mg PO DAILY 05/24/20 12/03/20 History amLODIPine [Norvasc] 5 mg PO DAILY 05/24/20 12/03/20 History Losartan Potassium 100 mg PO DAILY 12/03/20 12/03/20 History Simvastatin [Zocor] 20 mg PO DAILY 12/04/20 12/04/20 History Allergies Allergy/AdvReac Type Severity Reaction Status Date / Time cefazolin sodium [From [facility]] Allergy Itching/hiv Verified 12/03/20 22:45 es Surgical - Exam Osteopathic Statement: *. No significant issues noted on an osteopathic structural exam other than those noted in the History and Physical/Consult. Vital Signs Temp Pulse Resp BP Pulse Ox 97.8 F 92 18 146/64 96 12/03/20 20:05 12/03/20 20:05 12/03/20 20:05 12/03/20 20:05 12/03/20 20:05 - General The patient seems to respond yes and no appropriately, she doesn't recall all history well developed, no distress - Eyes normal ocular movement - Neck trachea midline - Respiratory normal respiratory effort, clear to auscultation right: wheezing (Right upper lobe) - Cardiovascular Rhythm: regular - Abdomen Abdomen: soft, tender (Admits to some mild generalized tenderness), bowel sounds, no guarding, no rigid, no rebound, no distended Results - Labs 12/03/20 22:09 12/04/20 09:02 Abnormal Lab Results - Last 24 Hours (Table) 12/03/20 12/03/20 12/03/20 Range/Units 20:55 20:55 22:09 WBC 16.8 H (3.8-10.6) k/uL MCV 79.3 L (80.0-100.0) fL MCH 24.1 L (25.0-35.0) pg MCHC 30.4 L (31.0-37.0) g/dL RDW 16.8 H (11.5-15.5) % Plt Count 136 L (150-450) k/uL Neutrophils # (Manual) 14.60 H (1.3-7.7) k/uL Lymphocytes # (Manual) 0.84 L (1.0-4.8) k/uL Monocytes # (Manual) 1.18 H (0-1.0) k/uL PT 23.0 H (9.0-12.0) sec INR 2.4 H (<1.2) Potassium 5.6 H (3.5-5.1) mmol/L Chloride 108 H (98-107) mmol/L Carbon Dioxide 12 L (22-30) mmol/L BUN 37 H (7-17) mg/dL Glucose 154 H (74-99) mg/dL Plasma Lactic Acid Eduin (0.7-2.0) mmol/L Total Bilirubin 3.2 H (0.2-1.3) mg/dL AST 726 H (14-36) U/L ALT 301 H (4-34) U/L Alkaline Phosphatase 240 H (38-126) U/L Ammonia (<30) umol/L Albumin 3.2 L (3.5-5.0) g/dL Urine Appearance (Clear) Urine Protein (Negative) Urine Ketones (Negative) Ur Leukocyte Esterase (Negative) Urine RBC (0-5) /hpf Urine WBC (0-5) /hpf Ur Squamous Epith Cells (0-4) /hpf Urine Bacteria (None) /hpf Hyaline Casts (0-2) /lpf Urine Mucus (None) /hpf 12/03/20 12/04/20 12/04/20 Range/Units 22:30 03:15 07:18 WBC (3.8-10.6) k/uL MCV (80.0-100.0) fL MCH (25.0-35.0) pg MCHC (31.0-37.0) g/dL RDW (11.5-15.5) % Plt Count (150-450) k/uL Neutrophils # (Manual) (1.3-7.7) k/uL Lymphocytes # (Manual) (1.0-4.8) k/uL Monocytes # (Manual) (0-1.0) k/uL PT (9.0-12.0) sec INR (<1.2) Potassium (3.5-5.1) mmol/L Chloride (98-107) mmol/L Carbon Dioxide (22-30) mmol/L BUN (7-17) mg/dL Glucose (74-99) mg/dL Plasma Lactic Acid Eduin 7.4 H* 3.8 H* (0.7-2.0) mmol/L Total Bilirubin (0.2-1.3) mg/dL AST (14-36) U/L ALT (4-34) U/L Alkaline Phosphatase (38-126) U/L Ammonia (<30) umol/L Albumin (3.5-5.0) g/dL Urine Appearance Cloudy H (Clear) Urine Protein Trace H (Negative) Urine Ketones Trace H (Negative) Ur Leukocyte Esterase Large H (Negative) Urine RBC 10 H (0-5) /hpf Urine WBC 20 H (0-5) /hpf Ur Squamous Epith Cells 13 H (0-4) /hpf Urine Bacteria Few H (None) /hpf Hyaline Casts 30 H (0-2) /lpf Urine Mucus Rare H (None) /hpf 12/04/20 12/04/20 12/04/20 Range/Units 09:02 11:21 11:21 WBC (3.8-10.6) k/uL MCV (80.0-100.0) fL MCH (25.0-35.0) pg MCHC (31.0-37.0) g/dL RDW (11.5-15.5) % Plt Count (150-450) k/uL Neutrophils # (Manual) (1.3-7.7) k/uL Lymphocytes # (Manual) (1.0-4.8) k/uL Monocytes # (Manual) (0-1.0) k/uL PT (9.0-12.0) sec INR (<1.2) Potassium (3.5-5.1) mmol/L Chloride 111 H (98-107) mmol/L Carbon Dioxide 21 L (22-30) mmol/L BUN 37 H (7-17) mg/dL Glucose 139 H (74-99) mg/dL Plasma Lactic Acid Eduin 3.8 H* (0.7-2.0) mmol/L Total Bilirubin 3.0 H (0.2-1.3) mg/dL AST 694 H (14-36) U/L ALT 320 H (4-34) U/L Alkaline Phosphatase 221 H (38-126) U/L Ammonia 50 H (<30) umol/L Albumin 2.7 L (3.5-5.0) g/dL Urine Appearance (Clear) Urine Protein (Negative) Urine Ketones (Negative) Ur Leukocyte Esterase (Negative) Urine RBC (0-5) /hpf Urine WBC (0-5) /hpf Ur Squamous Epith Cells (0-4) /hpf Urine Bacteria (None) /hpf Hyaline Casts (0-2) /lpf Urine Mucus (None) /hpf Microbiology - Last 24 Hours (Table) 12/03/20 22:30 Urine Culture - Preliminary Urine,Voided Diabetes panel 12/03/20 12/04/20 Range/Units 20:55 09:02 Sodium 137 141 (137-145) mmol/L Potassium 5.6 H 4.3 (3.5-5.1) mmol/L Chloride 108 H 111 H (98-107) mmol/L Carbon Dioxide 12 L 21 L (22-30) mmol/L BUN 37 H 37 H (7-17) mg/dL Creatinine 0.90 0.82 (0.52-1.04) mg/dL Glucose 154 H 139 H (74-99) mg/dL Calcium 9.8 9.7 (8.4-10.2) mg/dL AST 726 H 694 H (14-36) U/L ALT 301 H 320 H (4-34) U/L Alkaline Phosphatase 240 H 221 H (38-126) U/L Total Protein 7.5 7.0 (6.3-8.2) g/dL Albumin 3.2 L 2.7 L (3.5-5.0) g/dL Thyroid panel 12/03/20 Range/Units 20:55 TSH 1.920 (0.465-4.680) mIU/L Calcium panel 12/03/20 12/04/20 Range/Units 20:55 09:02 Calcium 9.8 9.7 (8.4-10.2) mg/dL Albumin 3.2 L 2.7 L (3.5-5.0) g/dL Pituitary panel 12/03/20 12/04/20 Range/Units 20:55 09:02 Sodium 137 141 (137-145) mmol/L Potassium 5.6 H 4.3 (3.5-5.1) mmol/L Chloride 108 H 111 H (98-107) mmol/L Carbon Dioxide 12 L 21 L (22-30) mmol/L BUN 37 H 37 H (7-17) mg/dL Creatinine 0.90 0.82 (0.52-1.04) mg/dL Glucose 154 H 139 H (74-99) mg/dL Calcium 9.8 9.7 (8.4-10.2) mg/dL TSH 1.920 (0.465-4.680) mIU/L Adrenal panel 12/03/20 12/04/20 Range/Units 20:55 09:02 Sodium 137 141 (137-145) mmol/L Potassium 5.6 H 4.3 (3.5-5.1) mmol/L Chloride 108 H 111 H (98-107) mmol/L Carbon Dioxide 12 L 21 L (22-30) mmol/L BUN 37 H 37 H (7-17) mg/dL Creatinine 0.90 0.82 (0.52-1.04) mg/dL Glucose 154 H 139 H (74-99) mg/dL Calcium 9.8 9.7 (8.4-10.2) mg/dL Total Bilirubin 3.2 H 3.0 H (0.2-1.3) mg/dL AST 726 H 694 H (14-36) U/L ALT 301 H 320 H (4-34) U/L Alkaline Phosphatase 240 H 221 H (38-126) U/L Total Protein 7.5 7.0 (6.3-8.2) g/dL Albumin 3.2 L 2.7 L (3.5-5.0) g/dL - Imaging CT scan - abdomen: report reviewed, image reviewed (Some gallbladder distention but no obvious cholelithiasis on CT or ultrasound, irregular appearance to the liver, ultrasound was questionable for portal vein thrombosis an MRI was recommended, CT shows bilateral lung nodules) Assessment and Plan (1) Coagulopathy Current Visit: Yes Status: Acute Code(s): D68.9 - COAGULATION DEFECT, UNSPE CIFIED SNOMED Code(s): 13299586 (2) Fall Current Visit: Yes Status: Acute Code(s): W19.XXXA - UNSPECIFIED FALL, INITIAL ENCOUNTER SNOMED Code(s): 9691303 (3) Generalized weakness Current Visit: Yes Status: Acute Code(s): R53.1 - WEAKNESS SNOMED Code(s): 77729130 (4) Transaminitis Current Visit: Yes Status: Acute Code(s): R74.01 - ELEVATION OF LEVELS OF LIVER TRANSAMINASE LEVELS SNOMED Code(s): 974147558 (5) UTI (urinary tract infection) Current Visit: Yes Status: Acute Code(s): N39.0 - URINARY TRACT INFECTION, SITE NOT SPECIFIED SNOMED Code(s): 97103871 Plan: On CT and ultrasound the gallbladder is distended. No obvious cholelithiasis or acute cholecystitis is seen. Common bile duct was 8 mm which may be normal for her age. Symptoms certainly are not suggestive of acute cholecystitis or choledocholithiasis. The patient gives no history of using Coumadin or having cardiac issues which would typically use anticoagulation. This picture would be more concerning for a primary liver abnormality. Currently no surgical intervention is needed. Continue medical care. The patient is to be evaluated by GI. I will follow on the periphery in case her condition changes and cholecystectomy would be indicated.
[2020-12-04 12:32] LABS: Glucose,Whole Blood 117 mg/dL (75-99)
[2020-12-04] MEDS: INSULIN ASPART (NovoLOG) 100 UNIT/ML VIAL SQ SCH ×3 (12:33→22:37)
[2020-12-04] MEDS ORDERED: LACTULOSE 20 GM/30 ML CUP PO ONE (13:43)
--- NOTE | 2020-12-04 18:50 | CONS ---
CONSULTATION DATE OF DICTATION: 12/04/2020 REASON FOR CONSULTATION: Elevated LFTs and jaundice. HISTORY OF PRESENT ILLNESS: The patient is a 80-year-old pleasant white female who came to the emergency room after she had a fall at home. Apparently, according to her son, she was slightly confused for the last few days' duration. She came to the emergency room and was noted on routine labs to have elevated LFTs and jaundice, and hence we are consulted in regards to this issue. The patient is a very poor historian. No family is available at the bedside. Apparently she was not having any abdominal pain. No nausea, no vomiting. No prior history of chronic liver disease. She did have labs done in the ER that showed a bilirubin of 3.6. AST was 694, ALT 320, alkaline phosphatase 221 and ammonia level was 50. No previous labs are available for comparison. She also was noted to have an INR of 2.4 and she is not on any anticoagulation. PAST MEDICAL HISTORY: Significant for diabetes mellitus, hypertension, hyperlipidemia, obesity, gastroesophageal reflux disease, sleep apnea and questionable fatty liver diagnosed before. PAST SURGICAL HISTORY: Surgery for breast cancer, hysterectomy, bilateral mastectomy, vocal cord surgery and bilateral cataract surgeries. MEDICATIONS: Medications at home include aspirin, vitamin D3, Lasix, Prilosec, K-Anay, insulin, Glucophage, Norvasc, potassium chloride, amlodipine and vitamin D3. ALLERGIES: CEFAZOLIN. SOCIAL HISTORY: No smoking. No alcohol use. FAMILY HISTORY: Unremarkable. REVIEW OF SYSTEMS: Review of systems could not be adequately obtained, but: Cardiopulmonary: She denies any shortness of breath. Neurology: She appears somewhat confused. Psychiatric could not be obtained. Most of the review of systems could not be obtained, as patient is somewhat confused. PHYSICAL EXAMINATION: She appears comfortable. VITAL SIGNS: Stable. Blood pressure 110/82, pulse rate 79, temperature 98.9. HEENT examination unremarkable. Conjunctivae pink. Sclerae icteric. Oral cavity no lesions. NECK: No JVD or lymph node enlargement. CHEST: Clear to auscultation. HEART: Regular rate and rhythm. ABDOMEN: Soft. It was non-tender, non-distended. Bowel sounds are positive. No organomegaly. EXTREMITIES: No pedal edema. NEUROLOGIC: Alert and oriented x3. No focal deficits. LABS: CT of the abdomen and pelvis showed some gallbladder wall distention with no gallstones. There was irregular appearance of the liver consistent with liver cirrhosis. She also had ultrasound of the abdomen done that showed questionable portal vein thrombosis, and bilateral small nodules noted. IMPRESSION: 1. Elevated liver function tests and jaundice in this patient who has no prior history of chronic liver disease. Currently has no abdominal pain. No nausea or vomiting. Ultrasound and CT scan showed nodular-appearing liver consistent with liver cirrhosis. There is questionable history of fatty liver disease diagnosed before. Ultrasound of the gallbladder did not show any evidence of gallstones. However, it appeared slightly distended with no biliary ductal dilation. The patient denies being on any new medications recently and no antibiotic use. Etiology of elevated LFTs remains unclear at this time, but this will be investigated. 2. Mild coagulopathy secondary to underlying liver disease. Patient not on any anticoagulation. 3. Mild confusion. Rule out hepatic encephalopathy. Ammonia level is 50. 4. Urinary tract infection. 5. Generalized weakness and recent fall. RECOMMENDATIONS: 1. Will initiate workup for chronic liver disease, obtain hepatitis serologies for A, B and C. 2. Stop Zocor. 3. Avoid hepatotoxic medications. 4. If her serum transaminases and jaundice get worse, will consider an MRCP to evaluate further. 5. Repeat labs in the morning. 6. Start her on lactulose 30 mL twice daily. 7. Follow ammonia level. 8. Will follow with you closely. Thank you for this consultation. LETY / JUAN: [id number] /
--- NOTE | 2020-12-04 20:35 | P.HPIM ---
History of Present Illness H&P Date: 12/04/20 Chief Complaint: Week History of presenting complaint: This is a 80-year-old patient of Dr. Siddiqui: Was chronic stable medical conditions include diabetes, GERD, hypertension, hyperlipidemia, fatty liver, hiatal hernia, urinary incontinence obstructive sleep apnea. Patient is brought in by the EMS. Per the EMS report patient been complaining of weakness and loss of appetite for the past week. Patient called to sit on a chair and slid off the ground. Did not hit her head. No loss of conscious. While signs noted by the EMS at the incision site included blood pressure 74/50, pulse 88, respirations 16, pulse ox 95% on room air. EKG tracing sinus rhythm Patient not the best of historians and is unclear as to why exactly she was brought in. Denies any fever and chills. Denies any nausea vomiting. She can tell me the place but she cannot tell me the year. Review of systems: GEN.: Tired, decreased appetite EYES: None HEENT: None NECK: None RESPIRATORY: None CARDIOVASCULAR: None GASTROINTESTINAL: None GENITOURINARY: None MUSCULOSKELETAL: Some joint pains LYMPHATICS: None HEMATOLOGICAL: None PSYCHIATRY: Bit forgetful NEUROLOGICAL: None Past medical history to include: Diabetes, GERD, hypertension, hyperlipidemia, fatty liver, obstructive sleep apnea, history of breast cancer, hiatal hernia, thyroid normal, urinary incontinence. Bilateral mastectomy. Social history: Lives with family. No alcohol. Patient status post smoking at the age of 20 s moked a pack a day stopped 20 years ago. Family history: Reviewed, noncontributory to presentation Physical examination: VITAL SIGNS: 97.8, 92, 18, 1 46 x 64, 96% room air GENERAL: BMI 32.8, laying in bed, not in distress. EYES: Pupils equal. Conjunctiva normal. HEENT: External appearance of nose and ears normal, oral cavity grossly normal. NECK: JVD not raised; masses not palpable. HEART: First and second heart sounds are normal; no edema. LUNGS: Respiratory rate increased, decreased breath sounds. ABDOMEN: Soft, nontender, liver spleen not palpable, no masses palpable. PSYCH: [Patient knows that she is here in the hospital with Ash cannot tell me the year l. Very slight decrease in sensorium NEUROLOGICAL: Cranial nerves grossly intact; no facial asymmetry, power and s ensation grossly intact. Moving all 4 limbs LYMPHATICS: No lymph nodes palpable in the axilla and neck INVESTIGATIONS, reviewed in the clinical context: Potassium 4.3 bun 37 creatinine 0.82 AST 694 ALT 320 total bilirubin 3 alkaline phosphatase 221 ammonia 50 Admission labs: WBC 16.8 hemoglobin 12.8 platelets 136 potassium 5.6 rectally 0.9 BUN 37 Total bilirubin 3.2 AST 726 ALT 301 TSH 1.9 Lactic acid 7.4 BNP-370 UA positive for leukoesterase WBC Coronavirus [PCR]-not detected Chest x-ray film personally reviewed by me-bilateral infiltrates CT chest abdomen pelvis: Moderate interstitial infiltrates numerous nodular densities lower lung morris. Gallbladder dilated at 5.3 cm. Significant heterogeneity throughout the liver. Assessment and plan: -Checks x-ray shows bilateral infiltrates. Suspect pneumonia. Suspect gram- negative organism. Start IV cefepime. -Hepatitis with some evidence of cirrhosis on CT Consult GI. Serology for A, B, and C. -Possible hepatic encephalopathy with elevated ammonia Start lactulose -Obesity BMI 32.8 -Diabetes mellitus type 2, chronically on insulin Continue Lantus at a reduced dose. Hold Glucophage -GERD -Hyperlipidemia Currently hold Zocor -Essential hypertension Norvasc, losartan -Dilated gallbladder. Denies any obvious abdominal symptoms. No Gr sign. Consults surgery -Obstructive sleep apnea -Hiatal hernia -Chronic urinary stress incontinence Past Medical History Past Medical History: Cancer, Diabetes Mellitus, GERD/Reflux, Hyperlipidemia, Hypertension, Liver Disease, Skin Disorder, Sleep Apnea/CPAP/BIPAP Additional Past Medical History / Comment(s): hx. "fatty liver", hx breast cancer, HIALTAL HERNIA, "little lumps on chest", thyroid nodule, urinary leakage History of Any Multi-Drug Resistant Organisms: None Reported Past Surgical History: Breast Surgery, Hysterectomy Additional Past Surgical History / Comment(s): consuelo. mastectomy, surgery on vocal cords to remove lumps, consuelo cataract surgery with lens implants Past Anesthesia/Blood Transfusion Reactions: No Reported Reaction Past Psychological History: No Psychological Hx Reported Smoking Status: Former smoker Past Alcohol Use History: None Reported Past Drug Use History: None Reported - Past Family History Mother Family Medical History: No Reported History Medications and Allergies Home Medications Medication Instructions Recorded Confirmed Type Aspirin 81 mg PO DAILY 01/25/15 12/03/20 History Cholecalciferol [Vitamin D3] 1,000 unit PO DAILY 01/25/15 12/03/20 History Furosemide [Lasix] 20 mg PO Q48H 01/25/15 12/03/20 History Omeprazole [PriLOSEC] 20 mg PO DAILY 01/25/15 12/03/20 History Potassium Chloride [Klor-Con 20] 10 meq PO Q48H 01/25/15 12/03/20 History metFORMIN HCL [Glucophage] 500 mg PO BID 01/25/15 12/03/20 History Insulin Glargine [Lantus] 22 unit SQ HS 05/24/20 12/03/20 History Pioglitazone HCl 45 mg PO DAILY 05/24/20 12/03/20 History amLODIPine [Norvasc] 5 mg PO DAILY 05/24/20 12/03/20 History Losartan Potassium 100 mg PO DAILY 12/03/20 12/03/20 History Simvastatin [Zocor] 20 mg PO DAILY 12/04/20 12/04/20 History Allergies Allergy/AdvReac Type Severity Reaction Status Date / Time cefazolin sodium [From [facility]] Allergy Itching/hiv Verified 12/03/20 22:45 es Physical Exam Vitals: Vital Signs Temp Pulse Resp BP Pulse Ox 12/04/20 07:27 97 18 140/73 95 12/04/20 06:00 75 19 131/64 94 L 12/04/20 03:33 96 22 140/64 95 12/03/20 23:00 95 18 143/59 92 L 12/03/20 20:05 97.8 F 92 18 146/64 96 Intake and Output 12/03/20 12/04/20 12/04/20 22:59 06:59 14:59 Other: Weight 97.976 kg Results CBC & Chem 7: 12/03/20 22:09 12/04/20 09:02 Labs: Abnormal Lab Results - Last 24 Hours (Table) 12/03/20 12/03/20 12/03/20 Range/Units 20:55 20:55 22:09 WBC 16.8 H (3.8-10.6) k/uL MCV 79.3 L (80.0-100.0) fL MCH 24.1 L (25.0-35.0) pg MCHC 30.4 L (31.0-37.0) g/dL RDW 16.8 H (11.5-15.5) % Plt Count 136 L (150-450) k/uL Neutrophils # (Manual) 14.60 H (1.3-7.7) k/uL Lymphocytes # (Manual) 0.84 L (1.0-4.8) k/uL Monocytes # (Manual) 1.18 H (0-1.0) k/uL PT 23.0 H (9.0-12.0) sec INR 2.4 H (<1.2) Potassium 5.6 H (3.5-5.1) mmol/L Chloride 108 H (98-107) mmol/L Carbon Dioxide 12 L (22-30) mmol/L BUN 37 H (7-17) mg/dL Glucose 154 H (74-99) mg/dL Plasma Lactic Acid Eduin (0.7-2.0) mmol/L Total Bilirubin 3.2 H (0.2-1.3) mg/dL AST 726 H (14-36) U/L ALT 301 H (4-34) U/L Alkaline Phosphatase 240 H (38-126) U/L Albumin 3.2 L (3.5-5.0) g/dL Urine Appearance (Clear) Urine Protein (Negative) Urine Ketones (Negative) Ur Leukocyte Esterase (Negative) Urine RBC (0-5) /hpf Urine WBC (0-5) /hpf Ur Squamous Epith Cells (0-4) /hpf Urine Bacteria (None) /hpf Hyaline Casts (0-2) /lpf Urine Mucus (None) /hpf 12/03/20 12/04/20 12/04/20 Range/Units 22:30 03:15 07:18 WBC (3.8-10.6) k/uL MCV (80.0-100.0) fL MCH (25.0-35.0) pg MCHC (31.0-37.0) g/dL RDW (11.5-15.5) % Plt Count (150-450) k/uL Neutrophils # (Manual) (1.3-7.7) k/uL Lymphocytes # (Manual) (1.0-4.8) k/uL Monocytes # (Manual) (0-1.0) k/uL PT (9.0-12.0) sec INR (<1.2) Potassium (3.5-5.1) mmol/L Chloride (98-107) mmol/L Carbon Dioxide (22-30) mmol/L BUN (7-17) mg/dL Glucose (74-99) mg/dL Plasma Lactic Acid Eduin 7.4 H* 3.8 H* (0.7-2.0) mmol/L Total Bilirubin (0.2-1.3) mg/dL AST (14-36) U/L ALT (4-34) U/L Alkaline Phosphatase (38-126) U/L Albumin (3.5-5.0) g/dL Urine Appearance Cloudy H (Clear) Urine Protein Trace H (Negative) Urine Ketones Trace H (Negative) Ur Leukocyte Esterase Large H (Negative) Urine RBC 10 H (0-5) /hpf Urine WBC 20 H (0-5) /hpf Ur Squamous Epith Cells 13 H (0-4) /hpf Urine Bacteria Few H (None) /hpf Hyaline Casts 30 H (0-2) /lpf Urine Mucus Rare H (None) /hpf 12/04/20 Range/Units 09:02 WBC (3.8-10.6) k/uL MCV (80.0-100.0) fL MCH (25.0-35.0) pg MCHC (31.0-37.0) g/dL RDW (11.5-15.5) % Plt Count (150-450) k/uL Neutrophils # (Manual) (1.3-7.7) k/uL Lymphocytes # (Manual) (1.0-4.8) k/uL Monocytes # (Manual) (0-1.0) k/uL PT (9.0-12.0) sec INR (<1.2) Potassium (3.5-5.1) mmol/L Chloride 111 H (98-107) mmol/L Carbon Dioxide 21 L (22-30) mmol/L BUN 37 H (7-17) mg/dL Glucose 139 H (74-99) mg/dL Plasma Lactic Acid Eduin (0.7-2.0) mmol/L Total Bilirubin 3.0 H (0.2-1.3) mg/dL AST 694 H (14-36) U/L ALT 320 H (4-34) U/L Alkaline Phosphatase 221 H (38-126) U/L Albumin 2.7 L (3.5-5.0) g/dL Urine Appearance (Clear) Urine Protein (Negative) Urine Ketones (Negative) Ur Leukocyte Esterase (Negative) Urine RBC (0-5) /hpf Urine WBC (0-5) /hpf Ur Squamous Epith Cells (0-4) /hpf Urine Bacteria (None) /hpf Hyaline Casts (0-2) /lpf Urine Mucus (None) /hpf Microbiology - Last 24 Hours (Table) 12/03/20 22:30 Urine Culture - Preliminary Urine,Voided
[2020-12-04 20:40] LABS: Glucose,Whole Blood 150 mg/dL (75-99)
[2020-12-04] MEDS ORDERED: INSULIN DETEMIR (LEVEMIR) 100 UNIT/ML SYR SQ SCH (21:00)
[2020-12-04] MEDS: CEFEPIME 2 GM in SODIUM CHLORIDE 0.9% 100 ML IVPB SCH (22:37)
[2020-12-04] MEDS: LACTULOSE 20 GM/30 ML CUP PO SCH (22:37)
[2020-12-05] MEDS: SODIUM CHLORIDE 0.9% 1,000 ML IV SCH ×2 (00:45→14:31)
[2020-12-05 03:14] LABS: Anisocytosis Slight; Basophils # (A) 0.1 k/uL (0-0.2); Basophils % (A) 0 %; Eosinophils # (A) 0.3 k/uL (0-0.7); Eosinophils % (A) 2 %; HCT 42.2 % (34.0-46.0); HGB 12.5 gm/dL (11.4-16.0); Hypochromasia Marked; Lymphocytes # (A) 2.2 k/uL (1.0-4.8); Lymphocytes % (A) 12 %; MCH 23.3 pg (25.0-35.0); MCHC 29.6 g/dL (31.0-37.0); MCV 78.7 fL (80.0-100.0); Mean Platelet Volume 9.4; Microcytosis Slight; Monocytes # (A) 1.8 k/uL (0-1.0); Monocytes % (A) 10 %; Neutrophils # (A) 13.2 k/uL (1.3-7.7); Neutrophils % (A) 73 %; Platelet Count 117 k/uL (150-450); Poikilocytosis Slight; RBC 5.36 m/uL (3.80-5.40); RDW 17.3 % (11.5-15.5); WBC 18.1 k/uL (3.8-10.6)
[2020-12-05 03:44] LABS: Hepatitis A Antibody IgM Non-Reactive (Non-Reactive); Hepatitis B Core IgM Non-Reactive (Non-Reactive); Hepatitis B Surface Antigen Non-Reactive (Non-Reactive); Hepatitis C IgG Antibody Non-Reactive (Non-Reactive)
[2020-12-05 06:59] LABS: Glucose,Whole Blood 151 mg/dL (75-99)
[2020-12-05] MEDS: ASPIRIN 81 MG PO SCH (09:52)
[2020-12-05] MEDS: LACTULOSE 20 GM/30 ML CUP PO SCH ×2 (09:52→21:08)
[2020-12-05] MEDS: PANTOPRAZOLE 40 MG TABLET PO SCH (09:52)
[2020-12-05] MEDS: amLODIPine 5 MG TAB PO SCH (09:52)
[2020-12-05] MEDS: CEFEPIME 2 GM in SODIUM CHLORIDE 0.9% 100 ML IVPB SCH ×2 (09:53→21:08)
[2020-12-05] MEDS: LOSARTAN 50 MG TAB PO SCH (09:53)
[2020-12-05] MEDS: CHOLECALCIFEROL 25 MCG (1000 IU) TABLET PO SCH (09:54)
[2020-12-05] MEDS: INSULIN ASPART (NovoLOG) 100 UNIT/ML VIAL SQ SCH ×4 (09:54→21:08)
[2020-12-05 10:05] LABS: Albumin 2.4 g/dL (3.5-5.0); Albumin/Globulin Ratio 0.6; Bilirubin, Conjugated 0.7 mg/dL (0.0-0.3); Bilirubin,Unconjugated 1.6 mg/dL (0.0-1.1); Globulin 3.9 g/dL; Total Bilirubin 3.3 mg/dL (0.2-1.3); Total Protein 6.3 g/dL (6.3-8.2)
[2020-12-05 10:38] LABS: % Iron Saturation 2.92 (12.00-45.00); African American GFR (CKD) 81.8 (60.0-200.0); Anion Gap 11.1 mmol/L (4.00-12.00); BUN/Creat Ratio 42.5 Ratio (12.00-20.00); Calcium 9.1 mg/dL (8.7-10.3); Carbon Dioxide 19.9 mmol/L (21.6-31.8); Non-African American GFR(CKD) 70.6 (60.0-200.0)
--- NOTE | 2020-12-05 10:41 | XR ---
EXAMINATION TYPE: XR chest 2V DATE OF EXAM: 12/05/2020 COMPARISON: 12/03/2020 HISTORY: 80 year-old female shortness of breath TECHNIQUE: AP and lateral views FINDINGS: Heart is enlarged. Bilateral patchy airspace opacities increased from prior. Small effusions. IMPRESSION: Cardiomegaly with patchy airspace disease and small pleural effusions. Correlate for CHF or pulmonary edema. Aeration has worsened as compared to 12/03/2020.
[2020-12-05 11:55] LABS: Glucose,Whole Blood 335 mg/dL (75-99)
[2020-12-05] MEDS: FUROSEMIDE 10 MG/ML 4 ML VIAL IV SCH (14:30)
--- NOTE | 2020-12-05 14:59 | P.PN ---
Subjective From records: This is a 80-year-old patient of Dr. Siddiqui: Was chronic stable medical conditions include diabetes, GERD, hypertension, hyperlipidemia, fatty liver, hiatal hernia, urinary incontinence obstructive sleep apnea. Patient is brought in by the EMS. Per the EMS report patient been complaining of weakness and loss of appetite for the past week. Patient called to sit on a chair and slid off the ground. Did not hit her head. No loss of conscious. While signs noted by the EMS at the incision site included blood pressure 74/50, pulse 88, respirations 16, pulse ox 95% on room air. EKG tracing sinus rhythm Patient not the best of historians and is unclear as to why exactly she was brought in. Denies any fever and chills. Denies any nausea vomiting. She can tell me the place but she cannot tell me the year. Subjective: 12/05/2020 This is a pleasant 80 years old female who presents because of fall. She is confused to the surrounding especially regarding time but she is oriented to place and person, she has also some memory problem and she does not remember why she is in the hospital. She follows commands easily. She is complaining of from dry cough on some dyspnea but no chest pain. She has some increased urinary frequency but no dysuria. She has decreased appetite. She was mildly hypoxic and low 90s of needing liter per minute of oxygen to keep her oxygen saturation above 94%. Rest of Vitas looks stable. showing WBC increased from 16 up to 18 K daily, INR was 2.4 on admission. Her liver enzymes are elevated as well as bilirubin code number is TRENDING down and while bilirubin is still elevated at 3.3. CT of the abdomen and pelvis showing possible pulmonary infiltrates and nodules, cirrhosis which is hepatitis versus metastasis is suspected and dilated gallbladder however surgical team provided patient with no cholecystitis and no need for surgical intervention. Pulmonary lesion is suspected of CHF versus infiltrate versus lymphangitic metastatic disease. Because of this pulmonary team were consulted. GI team on the case and the recommended workup for cirrhosis which is pending, rule out labs for more details Discontinue Zocor for elevated liver enzymes. Stop IV fluids and start the patient on Lasix for 3 days. Continue with cefepime. Also patient is on long acting insulin 16 units per night. Also she is on lactulose but ammonia level is normal. Review of systems -CONSTITUTIONAL: No fever, no malaise. Patient is generally weak and fatigued HEENT: No recent visual problems or hearing problems. Denied any sore throat. CARDIOVASCULAR: No orthopnea, PND, no palpitations, no syncope. PULMONARY: No shortness of breath, no cough, no hemoptysis. GASTROINTESTINAL: No diarrhea, no nausea, no vomiting, no abdominal pain. Normoactive bowel sounds. NEUROLOGICAL: No headaches, no weakness, no numbness. Active Medications Generic Name Dose Route Start Last Admin Trade Name Freq PRN Reason Stop Dose Admin Amlodipine Besylate 5 mg 12/04/20 09:00 12/05/20 09:52 Amlodipine 5 Mg Tab PO 5 mg DAILY ELSA Administration Aspirin 81 mg 12/04/20 09:00 12/05/20 09:52 Aspirin 81 Mg PO 81 mg DAILY ELSA Administration Cholecalciferol 1,000 mcg 12/04/20 09:00 12/05/20 09:54 Cholecalciferol 25 Mcg (1000 Iu) Tablet PO Not Given DAILY ELSA Furosemide 40 mg 12/05/20 11:15 12/05/20 14:30 Furosemide 10 Mg/Ml 4 Ml Vial IV 12/08/20 11:16 40 mg DAILY ELSA Administration Cefepime HCl 2 gm/ Sodium 100 mls @ 25 mls/hr 12/04/20 21:00 12/05/20 09:53 Chloride IVPB 25 mls/hr Q12HR ELSA Administration Insulin Aspart 0 unit 12/04/20 12:30 12/05/20 12:30 Insulin Aspart (Novolog) 100 Unit/Ml Vial SQ 7 unit ACHS ELSA Administration Protocol Insulin Detemir 16 unit 12/05/20 04:09 Insulin Detemir (Levemir) 100 Unit/Ml Syr SQ HS ELSA Lactulose 20 gm 12/04/20 21:00 12/05/20 09:52 Lactulose 20 Gm/30 Ml Cup PO 20 gm BID ELSA Administration Losartan Potassium 100 mg 12/04/20 09:00 12/05/20 09:53 Losartan 50 Mg Tab PO 100 mg DAILY ELSA Administration Naloxone HCl 0.2 mg 12/04/20 00:15 Naloxone 0.4 Mg/Ml 1 Ml Vial IV Q2M PRN Opioid Reversal Pantoprazole Sodium 40 mg 12/04/20 09:00 12/05/20 09:52 Pantoprazole 40 Mg Tablet PO 40 mg DAILY ELSA Administration Objective - Vital Signs Vital signs: Vital Signs Temp 97.5 F L 12/05/20 14:00 Pulse 68 12/05/20 14:00 Resp 16 12/05/20 14:00 BP 140/75 12/05/20 14:00 Pulse Ox 95 12/05/20 14:00 Intake & Output 12/04/20 12/05/20 12/05/20 18:59 06:59 18:59 Weight 97.976 kg Other: Voiding Method Incontinent Diaper External Catheter External Catheter Incontinent # Voids 1 1 - Exam -GENERAL: The patient is alert and oriented x2, not in any acute distress. Pat ient is weak and fatigued HEENT: Pupils are round and equally reacting to light. EOMI. No scleral icterus. No conjunctival pallor. Normocephalic, atraumatic. No pharyngeal erythema. No thyromegaly. CARDIOVASCULAR: S1 and S2 present. No murmurs, rubs, or gallops. PULMONARY: Chest is clear to auscultation, no wheezing or crackles. ABDOMEN: Soft, nontender, nondistended, normoactive bowel sounds. No palpable organomegaly. MUSCULOSKELETAL: No joint swelling or deformity. EXTREMITIES: No cyanosis, clubbing, or pedal edema. NEUROLOGICAL: Gross neurological examination did not reveal any focal deficits. SKIN: No rashes. no petechiae. - Labs CBC & Chem 7: 12/05/20 02:47 12/05/20 02:47 Labs: Abnormal Lab Results - Last 24 Hours (Table) 12/04/20 12/04/20 12/04/20 Range/Units 14:18 17:39 20:39 WBC (3.8-10.6) k/uL MCV (80.0-100.0) fL MCH (25.0-35.0) pg MCHC (31.0-37.0) g/dL RDW (11.5-15.5) % Plt Count (150-450) k/uL Neutrophils # (1.3-7.7) k/uL Monocytes # (0-1.0) k/uL Chloride (96-109) mmol/L Carbon Dioxide (21.6-31.8) mmol/L BUN (9.0-27.0) mg/dL BUN/Creatinine Ratio (12.00-20.00) Ratio Glucose (70-110) mg/dL POC Glucose (mg/dL) 150 H (75-99) mg/dL Plasma Lactic Acid Eduin 3.4 H* 3.8 H* (0.7-2.0) mmol/L Iron (50-170) ug/dL % Saturation (12.00-45.00) Total Bilirubin (0.2-1.3) mg/dL Conjugated Bilirubin (0.0-0.3) mg/dL Unconjugated Bilirubin (0.0-1.1) mg/dL AST (14-36) U/L ALT (4-34) U/L Alkaline Phosphatase (38-126) U/L Albumin (3.5-5.0) g/dL 12/04/20 12/04/20 12/05/20 Range/Units 20:57 23:54 02:47 WBC 18.1 H (3.8-10.6) k/uL MCV 78.7 L (80.0-100.0) fL MCH 23.3 L (25.0-35.0) pg MCHC 29.6 L (31.0-37.0) g/dL RDW 17.3 H (11.5-15.5) % Plt Count 117 L (150-450) k/uL Neutrophils # 13.2 H (1.3-7.7) k/uL Monocytes # 1.8 H (0-1.0) k/uL Chloride (96-109) mmol/L Carbon Dioxide (21.6-31.8) mmol/L BUN (9.0-27.0) mg/dL BUN/Creatinine Ratio (12.00-20.00) Ratio Glucose (70-110) mg/dL POC Glucose (mg/dL) (75-99) mg/dL Plasma Lactic Acid Eduin 3.0 H* 2.4 H* (0.7-2.0) mmol/L Iron (50-170) ug/dL % Saturation (12.00-45.00) Total Bilirubin (0.2-1.3) mg/dL Conjugated Bilirubin (0.0-0.3) mg/dL Unconjugated Bilirubin (0.0-1.1) mg/dL AST (14-36) U/L ALT (4-34) U/L Alkaline Phosphatase (38-126) U/L Albumin (3.5-5.0) g/dL 12/05/20 12/05/20 12/05/20 Range/Units 02:47 02:47 06:58 WBC (3.8-10.6) k/uL MCV (80.0-100.0) fL MCH (25.0-35.0) pg MCHC (31.0-37.0) g/dL RDW (11.5-15.5) % Plt Count (150-450) k/uL Neutrophils # (1.3-7.7) k/uL Monocytes # (0-1.0) k/uL Chloride 113 H (96-109) mmol/L Carbon Dioxide 19.9 L (21.6-31.8) mmol/L BUN 34.0 H (9.0-27.0) mg/dL BUN/Creatinine Ratio 42.50 H (12.00-20.00) Ratio Glucose 139 H (70-110) mg/dL POC Glucose (mg/dL) 151 H (75-99) mg/dL Plasma Lactic Acid Eduin 2.1 H* (0.7-2.0) mmol/L Iron 8 L (50-170) ug/dL % Saturation 2.92 L (12.00-45.00) Total Bilirubin (0.2-1.3) mg/dL Conjugated Bilirubin (0.0-0.3) mg/dL Unconjugated Bilirubin (0.0-1.1) mg/dL AST (14-36) U/L ALT (4-34) U/L Alkaline Phosphatase (38-126) U/L Albumin (3.5-5.0) g/dL 12/05/20 12/05/20 Range/Units 08:49 11:52 WBC (3.8-10.6) k/uL MCV (80.0-100.0) fL MCH (25.0-35.0) pg MCHC (31.0-37.0) g/dL RDW (11.5-15.5) % Plt Count (150-450) k/uL Neutrophils # (1.3-7.7) k/uL Monocytes # (0-1.0) k/uL Chloride (96-109) mmol/L Carbon Dioxide (21.6-31.8) mmol/L BUN (9.0-27.0) mg/dL BUN/Creatinine Ratio (12.00-20.00) Ratio Glucose (70-110) mg/dL POC Glucose (mg/dL) 335 H (75-99) mg/dL Plasma Lactic Acid Eduin (0.7-2.0) mmol/L Iron (50-170) ug/dL % Saturation (12.00-45.00) Total Bilirubin 3.3 H (0.2-1.3) mg/dL Conjugated Bilirubin 0.7 H (0.0-0.3) mg/dL Unconjugated Bilirubin 1.6 H (0.0-1.1) mg/dL AST 413 H (14-36) U/L ALT 255 H (4-34) U/L Alkaline Phosphatase 220 H (38-126) U/L Albumin 2.4 L (3.5-5.0) g/dL Microbiology - Last 24 Hours (Table) 12/03/20 22:30 Urine Culture - Final Urine,Voided 12/03/20 23:59 Blood Culture - Preliminary Blood No Growth after 24 hours 12/03/20 23:54 Blood Culture - Preliminary Blood No Growth after 24 hours Assessment and Plan Assessment: -Checks x-ray shows bilateral infiltrates. Suspect pneumonia vs edema, which is cystic disease also suspected -Possible Hepatitis with some evidence of cirrhosis on CT. -Possible hepatic encephalopathy with elevated ammonia, improving -Obesity BMI 32.8 -Diabetes mellitus type 2, chronically on insulin -GERD -Hyperlipidemia -Essential hypertension -Dilated gallbladder. Denies any obvious abdominal symptoms. No Gr sign. No hydronephrosis or surgery team -Obstructive sleep apnea -Hiatal hernia -Chronic urinary stress incontinence Plan: This is a pleasant 80 years old female who presents with fall, possible pneumon ia versus edema, cirrhosis of the liver versus hepatitis. Patient continue on antibiotics, cefepime. Short course of Lasix. Continue with lactulose. Continue with workup for cirrhosis per GI team. Case closely. Hold Zocor Surgical team also pulmonary teams were consulted Labs and medication were reviewed.. Continue same treatment. Continue with symptomatic treatment. Resume home medication. Monitor lytes and vitals. DVT and GI prophylaxis. Further recommendationsas per clinical course of the patient DVT prophylaxis: High INR GI Prophylaxis: Ppi PT/OT: Pending Prognosis is guarded
[2020-12-05 15:47] LABS: Protein, Total 5.9 g/dL (6.2-8.2)
--- NOTE | 2020-12-05 16:33 | P.PN ---
Subjective Progress Note Date: 12/05/20 Principal diagnosis: Elevated LFTs and jaundice Patient was seen and examined lying in bed today. She states she is feeling better. She is more awake and less confused today. She denies any nausea or vomiting, states she still has some mild abdominal discomfort. She currently has no family at the bedside. Her daughter is supposed to come in from out of town today. The tightest serologies negative for A, B, and C. Full liver serology ordered and pending results Objective - Vital Signs Vital signs: Vital Signs Temp 97.8 F 12/05/20 08:00 Pulse 89 12/05/20 08:00 Resp 20 12/05/20 08:00 BP 137/70 12/05/20 08:00 Pulse Ox 95 12/05/20 08:00 Intake & Output 12/04/20 12/05/20 12/05/20 18:59 06:59 18:59 Weight 97.976 kg Other: Voiding Method Incontinent Diaper External Catheter External Catheter Incontinent # Voids 1 1 - Exam General appearance: The patient is alert, oriented, appears in no acute di stress. HET: Head is normocephalic and atraumatic. Conjunctiva pink. Sclera anicteric. Neck: Supple without lymphadenopathy. Abdomen: Soft, nontender, nondistended with bowel sounds. No guarding or rigidity. Extremities: Normal skin color and turgor. No pedal edema Skin: No rashes, mild jaundice Neurological: No focal deficits. Alert and oriented 3. - Labs CBC & Chem 7: 12/05/20 02:47 12/05/20 02:47 Labs: Abnormal Lab Results - Last 24 Hours (Table) 12/04/20 12/04/20 12/04/20 Range/Units 14:18 17:39 20:39 WBC (3.8-10.6) k/uL MCV (80.0-100.0) fL MCH (25.0-35.0) pg MCHC (31.0-37.0) g/dL RDW (11.5-15.5) % Plt Count (150-450) k/uL Neutrophils # (1.3-7.7) k/uL Monocytes # (0-1.0) k/uL Chloride (96-109) mmol/L Carbon Dioxide (21.6-31.8) mmol/L BUN (9.0-27.0) mg/dL BUN/Creatinine Ratio (12.00-20.00) Ratio Glucose (70-110) mg/dL POC Glucose (mg/dL) 150 H (75-99) mg/dL Plasma Lactic Acid Eduin 3.4 H* 3.8 H* (0.7-2.0) mmol/L Iron (50-170) ug/dL % Saturation (12.00-45.00) Total Bilirubin (0.2-1.3) mg/dL Conjugated Bilirubin (0.0-0.3) mg/dL Unconjugated Bilirubin (0.0-1.1) mg/dL AST (14-36) U/L ALT (4-34) U/L Alkaline Phosphatase (38-126) U/L Albumin (3.5-5.0) g/dL 12/04/20 12/04/20 12/05/20 Range/Units 20:57 23:54 02:47 WBC 18.1 H (3.8-10.6) k/uL MCV 78.7 L (80.0-100.0) fL MCH 23.3 L (25.0-35.0) pg MCHC 29.6 L (31.0-37.0) g/dL RDW 17.3 H (11.5-15.5) % Plt Count 117 L (150-450) k/uL Neutrophils # 13.2 H (1.3-7.7) k/uL Monocytes # 1.8 H (0-1.0) k/uL Chloride (96-109) mmol/L Carbon Dioxide (21.6-31.8) mmol/L BUN (9.0-27.0) mg/dL BUN/Creatinine Ratio (12.00-20.00) Ratio Glucose (70-110) mg/dL POC Glucose (mg/dL) (75-99) mg/dL Plasma Lactic Acid Eduin 3.0 H* 2.4 H* (0.7-2.0) mmol/L Iron (50-170) ug/dL % Saturation (12.00-45.00) Total Bilirubin (0.2-1.3) mg/dL Conjugated Bilirubin (0.0-0.3) mg/dL Unconjugated Bilirubin (0.0-1.1) mg/dL AST (14-36) U/L ALT (4-34) U/L Alkaline Phosphatase (38-126) U/L Albumin (3.5-5.0) g/dL 12/05/20 12/05/20 12/05/20 Range/Units 02:47 02:47 06:58 WBC (3.8-10.6) k/uL MCV (80.0-100.0) fL MCH (25.0-35.0) pg MCHC (31.0-37.0) g/dL RDW (11.5-15.5) % Plt Count (150-450) k/uL Neutrophils # (1.3-7.7) k/uL Monocytes # (0-1.0) k/uL Chloride 113 H (96-109) mmol/L Carbon Dioxide 19.9 L (21.6-31.8) mmol/L BUN 34.0 H (9.0-27.0) mg/dL BUN/Creatinine Ratio 42.50 H (12.00-20.00) Ratio Glucose 139 H (70-110) mg/dL POC Glucose (mg/dL) 151 H (75-99) mg/dL Plasma Lactic Acid Eduin 2.1 H* (0.7-2.0) mmol/L Iron 8 L (50-170) ug/dL % Saturation 2.92 L (12.00-45.00) Total Bilirubin (0.2-1.3) mg/dL Conjugated Bilirubin (0.0-0.3) mg/dL Unconjugated Bilirubin (0.0-1.1) mg/dL AST (14-36) U/L ALT (4-34) U/L Alkaline Phosphatase (38-126) U/L Albumin (3.5-5.0) g/dL 12/05/20 12/05/20 Range/Units 08:49 11:52 WBC (3.8-10.6) k/uL MCV (80.0-100.0) fL MCH (25.0-35.0) pg MCHC (31.0-37.0) g/dL RDW (11.5-15.5) % Plt Count (150-450) k/uL Neutrophils # (1.3-7.7) k/uL Monocytes # (0-1.0) k/uL Chloride (96-109) mmol/L Carbon Dioxide (21.6-31.8) mmol/L BUN (9.0-27.0) mg/dL BUN/Creatinine Ratio (12.00-20.00) Ratio Glucose (70-110) mg/dL POC Glucose (mg/dL) 335 H (75-99) mg/dL Plasma Lactic Acid Eduin (0.7-2.0) mmol/L Iron (50-170) ug/dL % Saturation (12.00-45.00) Total Bilirubin 3.3 H (0.2-1.3) mg/dL Conjugated Bilirubin 0.7 H (0.0-0.3) mg/dL Unconjugated Bilirubin 1.6 H (0.0-1.1) mg/dL AST 413 H (14-36) U/L ALT 255 H (4-34) U/L Alkaline Phosphatase 220 H (38-126) U/L Albumin 2.4 L (3.5-5.0) g/dL Microbiology - Last 24 Hours (Table) 12/03/20 23:59 Blood Culture - Preliminary Blood No Growth after 24 hours 12/03/20 23:54 Blood Culture - Preliminary Blood No Growth after 24 hours 12/03/20 22:30 Urine Culture - Preliminary Urine,Voided Assessment and Plan (1) Transaminitis Narrative/Plan: This is a pleasant 72-year-old female with elevated liver function tests and jaundice who has no prior history of chronic liver disease. Currently patient has no abdominal pain nausea or vomiting. Ultrasound and CT scan showed nodular appearing liver consistent with liver cirrhosis. There is questionable history of fatty liver disease diagnosed before. Ultrasound of the gallbladder did not show any evidence of gallstones. However it appeared slightly distended with no biliary ductal dilation. The patient denies being on any new medications recently and no antibiotic use. He should also has evidence of mild coagulopathy secondary to underlying liver disease. She is not on any a nticoagulation. Etiology of elevated LFTs remains unclear at this time, however likely related to nonalcoholic fatty liver. Full liver serology was ordered. Current Visit: Yes Status: Acute Code(s): R74.01 - ELEVATION OF LEVELS OF LIVER TRANSAMINASE LEVELS SNOMED Code(s): 034393236 (2) Confusion Narrative/Plan: Patient mildly confused, ammonia level is 50. Rule out hepatic encephalopathy. Lactulose started. Current Visit: Yes Status: Acute Code(s): R41.0 - DISORIENTATION, UNSPECIFIED SNOMED Code(s): 009444087 Plan: 1. Continue symptomatic and supportive care 2. [place] serology ordered, pending results 3. Hepatitis serologies ordered, negative 4. Continue to monitor daily CMP, ammonia level 5. Continue lactulose 20 mg twice daily Thank you for this consultation, we will continue to follow. Dr. Jack I agree with the dictator's note, documented as a scribe by Berenice Mead.
[2020-12-05 16:48] LABS: Glucose,Whole Blood 132 mg/dL (75-99)
--- NOTE | 2020-12-05 17:52 | P.CNPUL ---
History of Present Illness Consult date: 12/05/20 Requesting physician: Luís Lomas Reason for consult: pneumonia Chief complaint: Weakness. History of present illness: This is a 80-year-old female with history of multiple medical problems including hypertension, dyslipidemia, fatty liver, breast cancer, urinary incontinence, bilateral mastectomy, type 2 diabetes, patient was admitted on 12/03/2020, mostly with symptoms of weakness. Patient was brought in by EMS, and apparently she has been complaining of weakness and poor appetite for the past week. The patient herself is a poor historian, could not get much information from the patient, and there wasn't much information in the chart to speak of. At any rate the patient was admitted, she was noted to have elevated liver enzymes. Leukocytosis. Elevated lactic acid of 7.4. Abnormal urinalysis consistent with UTI. Negative ECR for COVID-19 infection. Chest x-ray question bilateral infiltrates, not clear whether the infiltrates are truly pneumonic in nature or could be related to fluids or possibly even pulmonary fibrosis. Considering that clinical history is not suggestive of pneumonia, I did recommend a pro- calcitonin level, I also recommended a BNP level, a high-resolution CT of the chest, in the meantime the patient is on antibiotics for UTI, and presumptive pneumonia. Review of Systems ROS unobtainable: due to mental status Past Medical History Past Medical History: Cancer, Diabetes Mellitus, GERD/Reflux, Hyperlipidemia, Hypertension, Liver Disease, Skin Disorder, Sleep Apnea/CPAP/BIPAP Additional Past Medical History / Comment(s): hx. "fatty liver", hx breast cancer, HIALTAL HERNIA, "little lumps on chest", thyroid nodule, urinary leakage History of Any Multi-Drug Resistant Organisms: None Reported Past Surgical History: Breast Surgery, Hysterectomy Additional Past Surgical History / Comment(s): consuelo. mastectomy, surgery on vocal cords to remove lumps, consuelo cataract surgery with lens implants Past Anesthesia/Blood Transfusion Reactions: No Reported Reaction Past Psychological History: No Psychological Hx Reported Smoking Status: Former smoker Past Alcohol Use History: None Reported Past Drug Use History: None Reported - Past Family History Mother Family Medical History: No Reported History Medications and Allergies Home Medications Medication Instructions Recorded Confirmed Type Aspirin 81 mg PO DAILY 01/25/15 12/03/20 History Cholecalciferol [Vitamin D3] 1,000 unit PO DAILY 01/25/15 12/03/20 History Furosemide [Lasix] 20 mg PO Q48H 01/25/15 12/03/20 History Omeprazole [PriLOSEC] 20 mg PO DAILY 01/25/15 12/03/20 History Potassium Chloride [Klor-Con 20] 10 meq PO Q48H 01/25/15 12/03/20 History metFORMIN HCL [Glucophage] 500 mg PO BID 01/25/15 12/03/20 History Insulin Glargine [Lantus] 22 unit SQ HS 05/24/20 12/03/20 History Pioglitazone HCl 45 mg PO DAILY 05/24/20 12/03/20 History amLODIPine [Norvasc] 5 mg PO DAILY 05/24/20 12/03/20 History Losartan Potassium 100 mg PO DAILY 12/03/20 12/03/20 History Simvastatin [Zocor] 20 mg PO DAILY 12/04/20 12/04/20 History Allergies Allergy/AdvReac Type Severity Reaction Status Date / Time cefazolin sodium [From [facility]] Allergy Itching/hiv Verified 12/03/20 22:45 es Physical Exam Vitals: Vital Signs Temp Pulse Resp BP Pulse Ox 12/05/20 14:00 97.5 F L 68 16 140/75 95 12/05/20 08:00 97.8 F 89 20 137/70 95 12/05/20 00:15 97.8 F 87 14 145/83 94 L 12/04/20 20:00 16 12/04/20 19:47 97.8 F 78 15 145/77 92 L 12/04/20 18:14 98.5 F 90 21 136/77 91 L Intake and Output 12/05/20 12/05/20 12/05/20 06:59 14:59 22:59 Output Total 500 Balance -500 Output: Urine 500 Other: Voiding Method External Catheter # Voids 1 Physical Exam: Revealed a 80-year-old female in no distress, she is on 2 L nasal cannula, and her O2 saturations 95%. Head: Atraumatic, normocephalic. HEENT:[Neck is supple.] [No neck masses.] [No thyromegaly.] [No JVD.] Extremely dry mucous membranes noted. PERRLA, EOMI, nonicteric. Chest: Symmetrical chest expansion, fine crackles at the bases especially at the right base. Cardiac Exam: [Normal S1 and S2, no S3 gallop, no murmur.] Abdomen: [Soft, nontender, no megaly, no rebound, no guarding, normal bowel sounds.] Extremities: [No clubbing, no edema, no cyanosis.] Skin is noted to be extremely dry. Neurological Exam: Awake, oriented 3, but cannot give adequate history, patient has no clear-cut idea why she was brought into the hospital except for having poor appetite and not eating well for the last 1 week. Psychiatric: Depressed mood, blunt affect, minimal confusion is noted. Skin: No rashes, she does have dry mucous membranes. Lymphatics: No lymphadenopathy. Results - Laboratory Findings CBC and BMP: 12/05/20 02:47 12/05/20 02:47 PT/INR, D-dimer PT 23.0 sec (9.0-12.0) H 12/03/20 20:55 INR 2.4 (<1.2) H 12/03/20 20:55 Abnormal lab findings: Abnormal Labs 12/03/20 12/03/20 12/03/20 20:55 20:55 22:09 WBC 16.8 H MCV 79.3 L MCH 24.1 L MCHC 30.4 L RDW 16.8 H Plt Count 136 L Neutrophils # Neutrophils # (Manual) 14.60 H Lymphocytes # (Manual) 0.84 L Monocytes # Monocytes # (Manual) 1.18 H PT 23.0 H INR 2.4 H Potassium 5.6 H Chloride 108 H Carbon Dioxide 12 L BUN 37 H BUN/Creatinine Ratio Glucose 154 H POC Glucose (mg/dL) Plasma Lactic Acid Eduin Iron % Saturation Total Bilirubin 3.2 H Conjugated Bilirubin Unconjugated Bilirubin AST 726 H ALT 301 H Alkaline Phosphatase 240 H Ammonia Total Protein (PEP) Albumin 3.2 L Urine Appearance Urine Protein Urine Ketones Ur Leukocyte Esterase Urine RBC Urine WBC Ur Squamous Epith Cells Urine Bacteria Hyaline Casts Urine Mucus 12/03/20 12/04/20 12/04/20 22:30 03:15 07:18 WBC MCV MCH MCHC RDW Plt Count Neutrophils # Neutrophils # (Manual) Lymphocytes # (Manual) Monocytes # Monocytes # (Manual) PT INR Potassium Chloride Carbon Dioxide BUN BUN/Creatinine Ratio Glucose POC Glucose (mg/dL) Plasma Lactic Acid Eduin 7.4 H* 3.8 H* Iron % Saturation Total Bilirubin Conjugated Bilirubin Unconjugated Bilirubin AST ALT Alkaline Phosphatase Ammonia Total Protein (PEP) Albumin Urine Appearance Cloudy H Urine Protein Trace H Urine Ketones Trace H Ur Leukocyte Esterase Large H Urine RBC 10 H Urine WBC 20 H Ur Squamous Epith Cells 13 H Urine Bacteria Few H Hyaline Casts 30 H Urine Mucus Rare H 12/04/20 12/04/20 12/04/20 09:02 11:21 11:21 WBC MCV MCH MCHC RDW Plt Count Neutrophils # Neutrophils # (Manual) Lymphocytes # (Manual) Monocytes # Monocytes # (Manual) PT INR Potassium Chloride 111 H Carbon Dioxide 21 L BUN 37 H BUN/Creatinine Ratio Glucose 139 H POC Glucose (mg/dL) Plasma Lactic Acid Eduin 3.8 H* Iron % Saturation Total Bilirubin 3.0 H Conjugated Bilirubin Unconjugated Bilirubin AST 694 H ALT 320 H Alkaline Phosphatase 221 H Ammonia 50 H Total Protein (PEP) Albumin 2.7 L Urine Appearance Urine Protein Urine Ketones Ur Leukocyte Esterase Urine RBC Urine WBC Ur Squamous Epith Cells Urine Bacteria Hyaline Casts Urine Mucus 12/04/20 12/04/20 12/04/20 12:30 14:18 17:39 WBC MCV MCH MCHC RDW Plt Count Neutrophils # Neutrophils # (Manual) Lymphocytes # (Manual) Monocytes # Monocytes # (Manual) PT INR Potassium Chloride Carbon Dioxide BUN BUN/Creatinine Ratio Glucose POC Glucose (mg/dL) 117 H Plasma Lactic Acid Ediun 3.4 H* 3.8 H* Iron % Saturation Total Bilirubin Conjugated Bilirubin Unconjugated Bilirubin AST ALT Alkaline Phosphatase Ammonia Total Protein (PEP) Albumin Urine Appearance Urine Protein Urine Ketones Ur Leukocyte Esterase Urine RBC Urine WBC Ur Squamous Epith Cells Urine Bacteria Hyaline Casts Urine Mucus 12/04/20 12/04/20 12/04/20 20:39 20:57 23:54 WBC MCV MCH MCHC RDW Plt Count Neutrophils # Neutrophils # (Manual) Lymphocytes # (Manual) Monocytes # Monocytes # (Manual) PT INR Potassium Chloride Carbon Dioxide BUN BUN/Creatinine Ratio Glucose POC Glucose (mg/dL) 150 H Plasma Lactic Acid Eduin 3.0 H* 2.4 H* Iron % Saturation Total Bilirubin Conjugated Bilirubin Unconjugated Bilirubin AST ALT Alkaline Phosphatase Ammonia Total Protein (PEP) Albumin Urine Appearance Urine Protein Urine Ketones Ur Leukocyte Esterase Urine RBC Urine WBC Ur Squamous Epith Cells Urine Bacteria Hyaline Casts Urine Mucus 12/05/20 12/05/2021 02:47 02:47 02:47 WBC 18.1 H MCV 78.7 L MCH 23.3 L MCHC 29.6 L RDW 17.3 H Plt Count 117 L Neutrophils # 13.2 H Neutrophils # (Manual) Lymphocytes # (Manual) Monocytes # 1.8 H Monocytes # (Manual) PT INR Potassium Chloride 113 H Carbon Dioxide 19.9 L BUN 34.0 H BUN/Creatinine Ratio 42.50 H Glucose 139 H POC Glucose (mg/dL) Plasma Lactic Acid Eduin Iron 8 L % Saturation 2.92 L Total Bilirubin Conjugated Bilirubin Unconjugated Bilirubin AST ALT Alkaline Phosphatase Ammonia Total Protein (PEP) 5.9 L Albumin Urine Appearance Urine Protein Urine Ketones Ur Leukocyte Esterase Urine RBC Urine WBC Ur Squamous Epith Cells Urine Bacteria Hyaline Casts Urine Mucus 12/05/20 12/05/20 12/05/20 02:47 06:58 08:49 WBC MCV MCH MCHC RDW Plt Count Neutrophils # Neutrophils # (Manual) Lymphocytes # (Manual) Monocytes # Monocytes # (Manual) PT INR Potassium Chloride Carbon Dioxide BUN BUN/Creatinine Ratio Glucose POC Glucose (mg/dL) 151 H Plasma Lactic Acid Eduin 2.1 H* Iron % Saturation Total Bilirubin 3.3 H Conjugated Bilirubin 0.7 H Unconjugated Bilirubin 1.6 H AST 413 H ALT 255 H Alkaline Phosphatase 220 H Ammonia Total Protein (PEP) Albumin 2.4 L Urine Appearance Urine Protein Urine Ketones Ur Leukocyte Esterase Urine RBC Urine WBC Ur Squamous Epith Cells Urine Bacteria Hyaline Casts Urine Mucus 12/05/20 12/05/20 11:52 16:46 WBC MCV MCH MCHC RDW Plt Count Neutrophils # Neutrophils # (Manual) Lymphocytes # (Manual) Monocytes # Monocytes # (Manual) PT INR Potassium Chloride Carbon Dioxide BUN BUN/Creatinine Ratio Glucose POC Glucose (mg/dL) 335 H 132 H Plasma Lactic Acid Eduin Iron % Saturation Total Bilirubin Conjugated Bilirubin Unconjugated Bilirubin AST ALT Alkaline Phosphatase Ammonia Total Protein (PEP) Albumin Urine Appearance Urine Protein Urine Ketones Ur Leukocyte Esterase Urine RBC Urine WBC Ur Squamous Epith Cells Urine Bacteria Hyaline Casts Urine Mucus - Diagnostic Findings Chest x-ray: image reviewed (Chest x-ray showed cardiomegaly, patchy airspace disease and small pleural effusions the differential diagnosis could be related to pneumonia, atypical pulmonary edema, or even Covid related infiltrates) Assessment and Plan Assessment: Impression: Abnormal chest x-ray, possible underlying immunity acquired pneumonia or interstitial lung disease. Possibility of infiltrates related to recent COVID- 19 infection or atypical pulmonary edema is not entirely ruled out. But felt to be less likely. Elevated liver enzymes Acute metabolic encephalopathy with elevated ammonia level, possible hepatic encephalopathy Type 2 diabetes. Benign essential hypertension. Obstructive sleep apnea syndrome. Acute urinary tract infection Chronic urinary stress incontinence. Recommendation: Continue present antibiotics. Patient is now on cefepime. Continue lactulose and monitor ammonia level. High-resolution CT of the chest was ordered. Pro calcitonin level was ordered. BNP level was borderline elevated. Coronary virus antibody was ordered. Continue GI and DVT prophylaxis. Based on the labs I have ordered and based on the CT of the chest, further recom mendations will follow. Time with Patient: Greater than 30
[2020-12-05 20:22] LABS: Alpha Fetoprotein, Tumor Mkr 188.5 ng/mL (0.0-7.9)
[2020-12-05 20:54] LABS: Glucose,Whole Blood 148 mg/dL (75-99)
[2020-12-05] MEDS: INSULIN DETEMIR (LEVEMIR) 100 UNIT/ML SYR SQ SCH (21:08)
--- NOTE | 2020-12-05 22:41 | CT ---
EXAMINATION TYPE: CT chest wo con DATE OF EXAM: 12/05/2020 COMPARISON: Same day chest radiograph HISTORY: shortness of breath, infiltrates CT DLP: 983.5 mGycm Automated exposure control for dose reduction was used. CONTRAST: High-resolution CT scan of the chest is performed without intravenous contrast, in supine and prone p ositioning. 1 mm axial slices were obtained at 10 mm intervals utilizing high-resolution CT protocol. FINDINGS: LUNGS: There are innumerable diffuse small multifocal pulmonary opacities and nodular opacities of th e bilateral lungs. Small layering pleural effusions are seen. No pneumothorax. The visualized portion s of the tracheobronchial tree are patent. There is no evidence of pulmonary fibrosis, bronchiectasis , or honeycombing. MEDIASTINUM/SOFT TISSUES: No axillary or mediastinal lymphadenopathy greater than 1 cm. Hilar lymph n odes are limited in evaluation due to lack of IV contrast. Cardiac size is mildly enlarged. No perica rdial effusion. No thoracic aortic aneurysm. UPPER ABDOMEN: There is nodular contour of the liver with small perihepatic ascites. OSSEOUS: Degenerative changes of the spine. IMPRESSION: 1. Diffuse innumerable multifocal opacities and small nodules of the bilateral lungs. Small layering pleural effusions bilaterally. Findings may represent infectious etiology, although are nonspecific. Short-term follow-up to resolution is recommended with normal CT of the chest. 2. Cirrhotic liver and perihepatic ascites.
[2020-12-06 06:48] LABS: Glucose,Whole Blood 88 mg/dL (75-99)
[2020-12-06] MEDS: INSULIN ASPART (NovoLOG) 100 UNIT/ML VIAL SQ SCH ×4 (08:11→21:36)
[2020-12-06] MEDS ORDERED: CHOLECALCIFEROL 25 MCG (1000 IU) TABLET PO SCH (09:00)
[2020-12-06] MEDS: CEFEPIME 2 GM in SODIUM CHLORIDE 0.9% 100 ML IVPB SCH (09:04)
[2020-12-06] MEDS: LACTULOSE 20 GM/30 ML CUP PO SCH ×2 (09:04→21:40)
[2020-12-06] MEDS: PANTOPRAZOLE 40 MG TABLET PO SCH (09:05)
[2020-12-06] MEDS: CHOLECALCIFEROL 25 MCG (1000 IU) TABLET PO SCH (09:05)
[2020-12-06] MEDS: ASPIRIN 81 MG PO SCH (09:05)
[2020-12-06] MEDS: LOSARTAN 50 MG TAB PO SCH (09:05)
[2020-12-06] MEDS: amLODIPine 5 MG TAB PO SCH (09:05)
[2020-12-06] MEDS: FUROSEMIDE 10 MG/ML 4 ML VIAL IV SCH (09:05)
[2020-12-06 11:10] LABS: INR 1.93 (0.90-1.11); Prothrombin Time 20.2 sec (9.9-11.9)
[2020-12-06 11:45] LABS: Glucose,Whole Blood 114 mg/dL (75-99)
[2020-12-06 11:52] LABS: Acanthocytes 2+; HCT 38.6 % (37.2-46.3); HGB 12.3 g/dL (12.0-15.0); MCH 23.3 pg (27.0-32.0); MCHC 31.9 g/dL (32.0-37.0); MCV 73.1 fL (80.0-97.0); Microcytosis (M) 2+; Platelet Count 116 X 10*3/uL (140-440); RBC 5.28 X 10*6/uL (4.10-5.20); RDW 19.3 % (11.5-14.5); Target Cells 2+; WBC 18.19 X 10*3/uL (4.50-10.00)
[2020-12-06 12:03] LABS: African American GFR (CKD) 81.8 (60.0-200.0); Albumin 2.4 g/dL (3.80-4.90); Albumin/Globulin Ratio 0.73 (1.60-3.17); Anion Gap 8.4 mmol/L (4.00-12.00); BUN/Creat Ratio 32.5 Ratio (12.00-20.00); Calcium 9.3 mg/dL (8.7-10.3); Carbon Dioxide 23.6 mmol/L (21.6-31.8); Globulin 3.3 g/dL (1.6-3.3); Non-African American GFR(CKD) 70.6 (60.0-200.0); Potassium 3.6 mmol/L (3.5-5.5); Total Bilirubin 3.2 mg/dL (0.3-1.2); Total Protein 5.7 g/dL (6.2-8.2)
[2020-12-06 13:07] LABS: Albumin 2.37 g/dL (3.80-4.90); Gamma Globulin 1.85 g/dL (0.70-1.50)
--- NOTE | 2020-12-06 13:53 | P.PN ---
Subjective Progress Note Date: 12/06/20 Principal diagnosis: Elevated LFTs and jaundice The patient was seen and examined at bedside chair. She is without any acute changes or complaints through the night. She states she is not eating much because she doesn't have much of an appetite. She remains on IV antibiotics for UTI. She had a slight increase in her ammonia level at 58 today. She states she is just very tired. Alpha-fetoprotein elevated at 188, full serology still pending. Pulmonology on consult, chest CT ordered showing diffuse innumerable multifocal opacities and small nodules of bilateral lungs. Small layering pleural effusions bilaterally. Findings may represent infectious etiology, although are nonspecific. Short-term follow-up resolution is recommended with normal CT of the chest. Cirrhotic liver and perihepatic ascites. Objective - Vital Signs Vital signs: Vital Signs Temp 98.6 F 12/06/20 07:49 Pulse 82 12/06/20 07:49 Resp 18 12/06/20 07:49 BP 117/62 12/06/20 07:49 Pulse Ox 92 L 12/06/20 07:49 Intake & Output 12/05/20 12/06/20 12/06/20 18:59 06:59 18:59 Output Total 500 Balance -500 Output: Urine 500 Other: Voiding Method External Catheter External Catheter # Voids 2 - Exam General appearance: The patient is alert, oriented, appears in no acute distress. HET: Head is normocephalic and atraumatic. Conjunctiva pink. Sclera anicteric. Neck: Supple without lymphadenopathy. Abdomen: Soft, nontender, nondistended with bowel sounds. No guarding or rigidity. Extremities: Normal skin color and turgor. No pedal edema Skin: No rashes, mild jaundice Neurological: No focal deficits. Alert and oriented 3. - Labs CBC & Chem 7: 12/06/20 06:24 12/06/20 06:24 Labs: Abnormal Lab Results - Last 24 Hours (Table) 12/05/20 12/05/20 12/05/20 Range/Units 02:47 11:52 16:46 PT (9.9-11.9) sec INR (0.90-1.11) POC Glucose (mg/dL) 335 H 132 H (75-99) mg/dL Ammonia (<30) umol/L Total Protein (PEP) 5.9 L (6.2-8.2) g/dL Tumor Marker AFP 188.5 H (0.0-7.9) ng/mL 12/05/20 12/06/20 12/06/20 Range/Units 20:51 06:24 06:24 PT 20.2 H (9.9-11.9) sec INR 1.93 H (0.90-1.11) POC Glucose (mg/dL) 148 H (75-99) mg/dL Ammonia 46 H (<30) umol/L Total Protein (PEP) (6.2-8.2) g/dL Tumor Marker AFP (0.0-7.9) ng/mL Microbiology - Last 24 Hours (Table) 12/03/20 23:59 Blood Culture - Preliminary Blood No Growth after 48 hours 12/03/20 23:54 Blood Culture - Preliminary Blood No Growth after 48 hours 12/03/20 22:30 Urine Culture - Final Urine,Voided Assessment and Plan (1) Transaminitis Narrative/Plan: This is a pleasant 72-year-old female with elevated liver function tests and jaundice who has no prior history of chronic liver disease. Currently patient has no abdominal pain nausea or vomiting. Ultrasound and CT scan showed nodular appearing liver consistent with liver cirrhosis. There is questionable history of fatty liver disease diagnosed before. Ultrasound of the gallbladder did not show any evidence of gallstones. However it appeared slightly distended with no biliary ductal dilation. The patient denies being on any new medications recently and no antibiotic use. He should also has evidence of mild coagulopathy secondary to underlying liver disease. She is not on any anticoagulation. Etiology of elevated LFTs remains unclear at this time, however likely related to nonalcoholic fatty liver. Full liver serology was ordered. Liver MRI ordered. Liver enzymes stable, actually trending down. Current Visit: Yes Status: Acute Code(s): R74.01 - ELEVATION OF LEVELS OF LIVER TRANSAMINASE LEVELS SNOMED Code(s): 270545261 (2) Confusion Narrative/Plan: Patient mildly confused, ammonia level is 50. Rule out hepatic encephalopathy. Lactulose started, will increase to 30 mL 3 times a day. Current Visit: Yes Status: Acute Code(s): R41.0 - DISORIENTATION, UNSPECIF IED SNOMED Code(s): 615013443 Plan: 1. Continue symptomatic and supportive care 2. Full liver serology ordered, negative to date other than elevated AFP 3. Hepatitis serologies ordered, negative 4. Continue to monitor daily CMP, ammonia level 5. Increase lactulose to 30 mL 3 times a day, titrate to have 3-4 bowel movements daily 6. MRI of the liver ordered, further recommendations to follow Thank you for this consultation, we will continue to follow. Dr. Jack I agree with the dictator's note, documented as a scribe by Berenice Mead.
--- NOTE | 2020-12-06 15:36 | P.PN ---
Subjective From records: This is a 80-year-old patient of Dr. Siddiqui: Was chronic stable medical conditions include diabetes, GERD, hypertension, hyperlipidemia, fatty liver, hiatal hernia, urinary incontinence obstructive sleep apnea. Patient is brought in by the EMS. Per the EMS report patient been complaining of weakness and loss of appetite for the past week. Patient called to sit on a chair and slid off the ground. Did not hit her head. No loss of conscious. While signs noted by the EMS at the incision site included blood pressure 74/50, pulse 88, respirations 16, pulse ox 95% on room air. EKG tracing sinus rhythm Patient not the best of historians and is unclear as to why exactly she was brought in. Denies any fever and chills. Denies any nausea vomiting. She can tell me the place but she cannot tell me the year. Subjective: 12/05/2020 This is a pleasant 80 years old female who presents because of fall. She is confused to the surrounding especially regarding time but she is oriented to place and person, she has also some memory problem and she does not remember why she is in the hospital. She follows commands easily. She is complaining of from dry cough on some dyspnea but no chest pain. She has some increased urinary frequency but no dysuria. She has decreased appetite. She was mildly hypoxic and low 90s of needing liter per minute of oxygen to keep her oxygen saturation above 94%. Rest of Vitas looks stable. showing WBC increased from 16 up to 18 K daily, INR was 2.4 on admission. Her liver enzymes are elevated as well as bilirubin code number is TRENDING down and while bilirubin is still elevated at 3.3. CT of the abdomen and pelvis showing possible pulmonary infiltrates and nodules, cirrhosis which is hepatitis versus metastasis is suspected and dilated gallbladder however surgical team provided patient with no cholecystitis and no need for surgical intervention. Pulmonary lesion is suspected of CHF versus infiltrate versus lymphangitic metastatic disease. Because of this pulmonary team were consulted. GI team on the case and the recommended workup for cirrhosis which is pending, rule out labs for more details Discontinue Zocor for elevated liver enzymes. Stop IV fluids and start the patient on Lasix for 3 days. Continue with cefepime. Also patient is on long acting insulin 16 units per night. Also she is on lactulose but ammonia level is normal. 12/06/2020 Patient is awake and oriented today she is calm sitting in bed and not moving around. She denies any significant symptoms. But she is not eating well stating this morning her breakfast was called. Today she is awake and alert and oriented 3 including the year 2020. She could not remember why she hospital other than she fell but she follow command and her mentation is improved compared to yesterday. She is a little short of breath with dry cough but no chest pain and she holding oxygen saturation of 92% on 2 L oxygen via nasal cannula. She has bilateral leg swelling and she complains from constipation but she is not eating. Pulmonary input is appreciated, as CT of the chest showing diffuse innumerable multifocal obesity and small nodules of bilateral lungs. May represent infectious etiology and they recommended short-term follow-up as an outpatient. She was on cefepime which is switched to Zosyn now. Pro-calcitonin, proBNP and echo are pending She has leukocytosis 18 K, INR 1.9, liver enzymes are trending down but bilirubin is still elevated at 3.2. Hepatitis panel is negative and fetoprotein is elevated and GI team are requesting MRI of the liver. Pulmonary level is high at 46 patient is on lactulose. She is also on Lasix IV 40 mg daily. Advil fluid restriction Review of systems -CONSTITUTIONAL: No fever, no malaise. Patient is generally weak and fatigued HEENT: No recent visual problems or hearing problems. Denied any sore throat. CARDIOVASCULAR: No orthopnea, PND, no palpitations, no syncope. PULMONARY: No shortness of breath, no cough, no hemoptysis. GASTROINTESTINAL: No diarrhea, no nausea, no vomiting, no abdominal pain. Normoactive bowel sounds. NEUROLOGICAL: No headaches, no weakness, no numbness. Active Medications Generic Name Dose Route Start Last Admin Trade Name Freq PRN Reason Stop Dose Admin Amlodipine Besylate 5 mg 12/04/20 09:00 12/06/20 09:05 Amlodipine 5 Mg Tab PO 5 mg DAILY ELSA Administration Aspirin 81 mg 12/04/20 09:00 12/06/20 09:05 Aspirin 81 Mg PO 81 mg DAILY ELSA Administration Cholecalciferol 25 mcg 12/06/20 09:00 12/06/20 09:05 Cholecalciferol 25 Mcg (1000 Iu) Tablet PO 25 mcg DAILY ELSA Administration Furosemide 40 mg 12/05/20 11:15 12/06/20 09:05 Furosemide 10 Mg/Ml 4 Ml Vial IV 12/08/20 11:16 40 mg DAILY ELSA Administration Piperacillin Sod/Tazobactam 100 mls @ 25 mls/hr 12/06/20 16:00 Sod 3.375 gm/ Sodium Chloride IVPB Q8HR [facility] Insulin Aspart 0 unit 12/04/20 12:30 12/06/20 12:11 Insulin Aspart (Novolog) 100 Unit/Ml Vial SQ Not Given ACHS [facility] Protocol Insulin Detemir 16 unit 12/05/20 04:09 12/05/20 21:08 Insulin Detemir (Levemir) 100 Unit/Ml Syr SQ 16 unit HS ELSA Administration Lactulose 30 gm 12/06/20 09:00 12/06/20 09:04 Lactulose 20 Gm/30 Ml Cup PO 30 gm BID ELSA Administration Losartan Potassium 100 mg 12/04/20 09:00 12/06/20 09:05 Losartan 50 Mg Tab PO 100 mg DAILY ELSA Administration Naloxone HCl 0.2 mg 12/04/20 00:15 Naloxone 0.4 Mg/Ml 1 Ml Vial IV Q2M PRN Opioid Reversal Pantoprazole Sodium 40 mg 12/04/20 09:00 12/06/20 09:05 Pantoprazole 40 Mg Tablet PO 40 mg DAILY ELSA Administration Objective - Vital Signs Vital signs: Vital Signs Temp 98.6 F 12/06/20 07:49 Pulse 82 12/06/20 07:49 Resp 18 12/06/20 07:49 BP 117/62 12/06/20 07:49 Pulse Ox 92 L 12/06/20 07:49 Intake & Output 12/05/20 12/06/20 12/06/20 18:59 06:59 18:59 Output Total 500 Balance -500 Output: Urine 500 Other: Voiding Method External Catheter External Catheter Toilet # Voids 2 - Exam -GENERAL: The patient is alert and oriented x2, not in any acute distress. Patient is weak and fatigued HEENT: Pupils are round and equally reacting to light. EOMI. No scleral icterus. No conjunctival pallor. Normocephalic, atraumatic. No pharyngeal erythema. No thyromegaly. CARDIOVASCULAR: S1 and S2 present. No murmurs, rubs, or gallops. PULMONARY: Chest is clear to auscultation, no wheezing or crackles. ABDOMEN: Soft, nontender, nondistended, normoactive bowel sounds. No palpable organomegaly. MUSCULOSKELETAL: No joint swelling or deformity. EXTREMITIES: No cyanosis, clubbing, or pedal edema. NEUROLOGICAL: Gross neurological examination did not reveal any focal deficits. SKIN: No rashes. no petechiae. - Labs CBC & Chem 7: 12/06/20 06:24 12/06/20 06:24 Labs: Abnormal Lab Results - Last 24 Hours (Table) 12/05/20 12/05/20 12/05/20 Range/Units 02:47 16:46 20:51 WBC (4.50-10.00) X 10*3/uL RBC (4.10-5.20) X 10*6/uL MCV (80.0-97.0) fL MCH (27.0-32.0) pg MCHC (32.0-37.0) g/dL RDW (11.5-14.5) % Plt Count (140-440) X 10*3/uL Plt Count Comment Absolute Nucleated RBC (0.00-0.00) X 10*3/uL NRBC/100 WBC Diff (0.0-0.0) /100 WBCS PT (9.9-11.9) sec INR (0.90-1.11) Chloride (96-109) mmol/L BUN/Creatinine Ratio (12.00-20.00) Ratio Glucose (70-110) mg/dL POC Glucose (mg/dL) 132 H 148 H (75-99) mg/dL Total Bilirubin (0.3-1.2) mg/dL AST (13-35) U/L ALT (8-44) U/L Alkaline Phosphatase (41-126) U/L Ammonia (<30) umol/L Total Protein (6.2-8.2) g/dL Total Protein (PEP) 5.9 L (6.2-8.2) g/dL Albumin (3.80-4.90) g/dL Albumin (PEP) 2.37 L (3.80-4.90) g/dL Albumin/Globulin Ratio (1.60-3.17) g/dL Pajns-4-Nuervjpmq 0.47 L (0.60-1.00) g/dL Gamma Globulins 1.85 H (0.70-1.50) g/dL Tumor Marker AFP 188.5 H (0.0-7.9) ng/mL 12/06/20 12/06/20 12/06/20 Range/Units 06:24 06:24 06:24 WBC 18.19 H (4.50-10.00) X 10*3/uL RBC 5.28 H (4.10-5.20) X 10*6/uL MCV 73.1 L (80.0-97.0) fL MCH 23.3 L (27.0-32.0) pg MCHC 31.9 L (32.0-37.0) g/dL RDW 19.3 H (11.5-14.5) % Plt Count 116 L (140-440) X 10*3/uL Plt Count Comment DECREASED A Absolute Nucleated RBC 0.04 H (0.00-0.00) X 10*3/uL NRBC/100 WBC Diff 0.2 H (0.0-0.0) /100 WBCS PT (9.9-11.9) sec INR (0.90-1.11) Chloride 112 H (96-109) mmol/L BUN/Creatinine Ratio 32.50 H (12.00-20.00) Ratio Glucose 129 H (70-110) mg/dL POC Glucose (mg/dL) (75-99) mg/dL Total Bilirubin 3.2 H (0.3-1.2) mg/dL AST 243 H (13-35) U/L ALT 227 H (8-44) U/L Alkaline Phosphatase 218 H (41-126) U/L Ammonia 46 H (<30) umol/L Total Protein 5.7 L (6.2-8.2) g/dL Total Protein (PEP) (6.2-8.2) g/dL Albumin 2.40 L (3.80-4.90) g/dL Albumin (PEP) (3.80-4.90) g/dL Albumin/Globulin Ratio 0.73 L (1.60-3.17) g/dL Mzcyq-1-Lcqdvtyrb (0.60-1.00) g/dL Gamma Globulins (0.70-1.50) g/dL Tumor Marker AFP (0.0-7.9) ng/mL 12/06/20 12/06/20 Range/Units 06:24 11:43 WBC (4.50-10.00) X 10*3/uL RBC (4.10-5.20) X 10*6/uL MCV (80.0-97.0) fL MCH (27.0-32.0) pg MCHC (32.0-37.0) g/dL RDW (11.5-14.5) % Plt Count (140-440) X 10*3/uL Plt Count Comment Absolute Nucleated RBC (0.00-0.00) X 10*3/uL NRBC/100 WBC Diff (0.0-0.0) /100 WBCS PT 20.2 H (9.9-11.9) sec INR 1.93 H (0.90-1.11) Chloride (96-109) mmol/L BUN/Creatinine Ratio (12.00-20.00) Ratio Glucose (70-110) mg/dL POC Glucose (mg/dL) 114 H (75-99) mg/dL Total Bilirubin (0.3-1.2) mg/dL AST (13-35) U/L ALT (8-44) U/L Alkaline Phosphatase (41-126) U/L Ammonia (<30) umol/L Total Protein (6.2-8.2) g/dL Total Protein (PEP) (6.2-8.2) g/dL Albumin (3.80-4.90) g/dL Albumin (PEP) (3.80-4.90) g/dL Albumin/Globulin Ratio (1.60-3.17) g/dL Tbhml-5-Usbozarzq (0.60-1.00) g/dL Gamma Globulins (0.70-1.50) g/dL Tumor Marker AFP (0.0-7.9) ng/mL Microbiology - Last 24 Hours (Table) 12/03/20 23:59 Blood Culture - Preliminary Blood No Growth after 48 hours 12/03/20 23:54 Blood Culture - Preliminary Blood No Growth after 48 hours 12/03/20 22:30 Urine Culture - Final Urine,Voided Assessment and Plan Assessment: -Checks x-ray shows bilateral infiltrates. Suspect pneumonia vs edema, which is cystic disease also suspected -Possible Hepatitis with some evidence of cirrhosis on CT. -Elevated alpha-fetoprotein, rule out hepatic cancer -Possible hepatic encephalopathy with elevated ammonia, improving -Obesity BMI 32.8 -Diabetes mellitus type 2, chronically on insulin -GERD -Hyperlipidemia -Essential hypertension -Dilated gallbladder. Denies any obvious abdominal symptoms. No Gr sign. No hydronephrosis or surgery team -Obstructive sleep apnea -Hiatal hernia -Chronic urinary stress incontinence Plan: This is a pleasant 80 years old female who presents with fall, possible p neumonia versus edema, cirrhosis of the liver versus hepatitis. Patient continue on antibiotics, cefepime. Short course of Lasix. Continue with lactulose. Continue with workup for cirrhosis per GI team. Case closely. MRI of the liver [facility] Surgical team also pulmonary teams were consulted Labs and medication were reviewed.. Continue same treatment. Continue with symptomatic treatment. Resume home medication. Monitor lytes and vitals. DVT and GI prophylaxis. Further recommendationsas per clinical course of the patient DVT prophylaxis: High INR GI Prophylaxis: Ppi PT/OT: Pending Prognosis is guarded
[2020-12-06 15:45] LABS: Ceruloplasmin 31.8 mg/dL (20.0-60.0)
[2020-12-06] MEDS: PIPERACILLIN-TAZOBACTAM 3.375 GM in SODIUM CHLORIDE 0.9% 100 ML IVPB SCH (16:42)
--- NOTE | 2020-12-06 16:43 | ECHOF ---
Referral Reason:Rule out heart disease MEASUREMENTS -------- HEIGHT: 172.7 cm WEIGHT: 98.0 kg BP: RVIDd: 2.7 cm (< 3.3) IVSd: 1.3 cm (0.6 - 1.1) LVIDd: 4.3 cm (3.9 - 5.3) LVPWd: 1.5 cm (0.6 - 1.1) IVSs: 1.6 cm LVIDs: 3.6 cm LVPWs: 0.9 cm LA Diam: 3.5 cm (2.7 - 3.8) Ao Diam: 3.2 cm (2.0 - 3.7) AV Cusp: 1.9 cm (1.5 - 2.6) LA Diam: 3.9 cm (2.7 - 3.8) MV EXCURSION: 20.304 mm (> 18.000) MV EF SLOPE: 67 mm/s (70 - 150) EPSS: 0.4 cm MV E Long: 0.56 m/s MV DecT: 369 ms MV A Long: 0.84 m/s MV E/A Ratio: 0.66 RAP: 5.00 mmHg RVSP: 15.28 mmHg FINDINGS -------- Sinus rhythm. This was a technically good study. The left ventricular size is normal. There is mild concentric left ventricular hypertrophy. Overa ll left ventricular systolic function is normal with, an EF between 55 - 60 %. The right ventricle is normal in size. The left atrial size is normal. The right atrial size is normal. There is mild aortic valve sclerosis. There is no evidence of aortic regurgitation. Mild mitral regurgitation is present. Mild tricuspid regurgitation present. Right ventricular systolic pressure is normal at < 35 mmHg. The pulmonic valve was not well visualized. The aortic root size is normal. Echo free space represents a pericardial fat pad. CONCLUSIONS -------- 1. The left ventricular size is normal. 2. There is mild concentric left ventricular hypertrophy. 3. Overall left ventricular systolic function is normal with, an EF between 55 - 60 %. 4. The right ventricle is normal in size. 5. The left atrial size is normal. 6. The right atrial size is normal. 7. There is mild aortic valve sclerosis. 8. Mild mitral regurgitation is present. 9. Mild tricuspid regurgitation present. 10. The pulmonic valve was not well visualized. 11. The aortic root size is normal. 12. Echo free space represents a pericardial fat pad. MERCERIZER: Loretta Ford RDCS
[2020-12-06 17:00] LABS: Glucose,Whole Blood 151 mg/dL (75-99)
--- NOTE | 2020-12-06 17:42 | P.PN ---
Subjective Progress Note Date: 12/06/20 This is a 80-year-old female with history of multiple medical problems including hypertension, dyslipidemia, fatty liver, breast cancer, urinary incontinence, bilateral mastectomy, type 2 diabetes, patient was admitted on 12/03/2020, mostly with symptoms of weakness. Patient was brought in by EMS, and apparently she has been complaining of weakness and poor appetite for the past week. The patient herself is a poor historian, could not get much information from the patient, and there wasn't much information in the chart to speak of. At any rate the patient was admitted, she was noted to have elevated liver enzymes. Leukocytosis. Elevated lactic acid of 7.4. Abnormal urinalysis consistent with UTI. Negative ECR for COVID-19 infection. Chest x-ray question bilateral infiltrates, not clear whether the infiltrates are truly pneumonic in nature or could be related to fluids or possibly even pulmonary fibrosis. Considering that clinical history is not suggestive of pneumonia, I did recommen d a pro-calcitonin level, I also recommended a BNP level, a high-resolution CT of the chest, in the meantime the patient is on antibiotics for UTI, and presumptive pneumonia. On 12/06/2020 patient seen in follow-up on medical surgical floor, CT chest was completed last night showing diffuse innumerable multifocal opacities and small nodules of the bilateral lungs, small layering of the pleural effusions bilaterally, and the findings could represent infectious etiology although they are nonspecific. Patient is also breast cancer survivor 2 status post bilateral mastectomy, and there is a possibility of underlying malignancy as well. She appears to be nontoxic, appears to be breathing comfortably, no cough, she is on 2 L of oxygen and pulse ox is 92%, she has been afebrile, pro-calcitonin he has been ordered and is pending at this time, she has had no fever. Denied any chills, no chest pain, no hemoptysis, although her white blood cell count is elevated and at 18.19, hemoglobin is 12.3, electrolytes and renal profile are unremarkable, her proBNP was within normal limits, 3, her t roponin admission was negative, her liver enzymes were elevated and they are improving on today's labs, GI service is following, and gallbladder ultrasound was completed showing heterogeneous lobular contour of the liver, patient's AFP marker was also elevated. Patient does have a history of fatty liver, nonalcoholic. She appears to be breathing comfortably Objective - Vital Signs Vital signs: Vital Signs Temp 98.6 F 12/06/20 07:49 Pulse 82 12/06/20 07:49 Resp 18 12/06/20 07:49 BP 117/62 12/06/20 07:49 Pulse Ox 92 L 12/06/20 07:49 Intake & Output 12/05/20 12/06/20 12/06/20 18:59 06:59 18:59 Output Total 500 Balance -500 Output: Urine 500 Other: Voiding Method External Catheter External Catheter Toilet # Voids 2 - Exam GENERAL EXAM: Alert, hard of hearing, 80-year-old white female on 2 L of oxygen, breathing comfortably, appears to be in no acute distress comfortable in no apparent distress. HEAD: Normocephalic/atraumatic. EYES: Normal reaction of pupils, equal size. Conjunctiva pink, sclera white. NOSE: Clear with pink turbinates. THROAT: No erythema or exudates. NECK: No masses, no JVD, no thyroid enlargement, no adenopathy. CHEST: No chest wall deformity. Symmetrical expansion. LUNGS: Equal air entry with no crackles, wheeze, rhonchi or dullness. CVS: Regular rate and rhythm, normal S1 and S2, no gallops, no murmurs, no rubs ABDOMEN: Soft, nontender. No hepatosplenomegaly, normal bowel sounds, no guard ing or rigidity. EXTREMITIES: No clubbing, no edema, no cyanosis, 2+ pulses and upper and lower extremities. MUSCULOSKELETAL: Muscle strength and tone normal. SPINE: No scoliosis or deformity SKIN: No rashes CENTRAL NERVOUS SYSTEM: Alert and oriented -3. No focal deficits, tone is normal in all 4 extremities. PSYCHIATRIC: Alert and oriented -3. Appropriate affect. Intact judgment and insight. - Labs CBC & Chem 7: 12/06/20 06:24 12/06/20 06:24 Labs: Abnormal Lab Results - Last 24 Hours (Table) 12/05/20 12/05/20 12/06/20 Range/Units 02:47 20:51 06:24 WBC 18.19 H (4.50-10.00) X 10*3/uL RBC 5.28 H (4.10-5.20) X 10*6/uL MCV 73.1 L (80.0-97.0) fL MCH 23.3 L (27.0-32.0) pg MCHC 31.9 L (32.0-37.0) g/dL RDW 19.3 H (11.5-14.5) % Plt Count 116 L (140-440) X 10*3/uL Plt Count Comment DECREASED A Absolute Nucleated RBC 0.04 H (0.00-0.00) X 10*3/uL NRBC/100 WBC Diff 0.2 H (0.0-0.0) /100 WBCS PT (9.9-11.9) sec INR (0.90-1.11) Chloride (96-109) mmol/L BUN/Creatinine Ratio (12.00-20.00) Ratio Glucose (70-110) mg/dL POC Glucose (mg/dL) 148 H (75-99) mg/dL Total Bilirubin (0.3-1.2) mg/dL AST (13-35) U/L ALT (8-44) U/L Alkaline Phosphatase (41-126) U/L Ammonia (<30) umol/L Total Protein (6.2-8.2) g/dL Albumin (3.80-4.90) g/dL Albumin (PEP) 2.37 L (3.80-4.90) g/dL Albumin/Globulin Ratio (1.60-3.17) g/dL Uvirk-4-Hlbnayoqt 0.47 L (0.60-1.00) g/dL Gamma Globulins 1.85 H (0.70-1.50) g/dL Tumor Marker AFP 188.5 H (0.0-7.9) ng/mL 12/06/20 12/06/20 12/06/20 Range/Units 06:24 06:24 06:24 WBC (4.50-10.00) X 10*3/uL RBC (4.10-5.20) X 10*6/uL MCV (80.0-97.0) fL MCH (27.0-32.0) pg MCHC (32.0-37.0) g/dL RDW (11.5-14.5) % Plt Count (140-440) X 10*3/uL Plt Count Comment Absolute Nucleated RBC (0.00-0.00) X 10*3/uL NRBC/100 WBC Diff (0.0-0.0) /100 WBCS PT 20.2 H (9.9-11.9) sec INR 1.93 H (0.90-1.11) Chloride 112 H (96-109) mmol/L BUN/Creatinine Ratio 32.50 H (12.00-20.00) Ratio Glucose 129 H (70-110) mg/dL POC Glucose (mg/dL) (75-99) mg/dL Total Bilirubin 3.2 H (0.3-1.2) mg/dL AST 243 H (13-35) U/L ALT 227 H (8-44) U/L Alkaline Phosphatase 218 H (41-126) U/L Ammonia 46 H (<30) umol/L Total Protein 5.7 L (6.2-8.2) g/dL Albumin 2.40 L (3.80-4.90) g/dL Albumin (PEP) (3.80-4.90) g/dL Albumin/Globulin Ratio 0.73 L (1.60-3.17) g/dL Wkabl-1-Vgeamoeqk (0.60-1.00) g/dL Gamma Globulins (0.70-1.50) g/dL Tumor Marker AFP (0.0-7.9) ng/mL 12/06/20 12/06/20 Range/Units 11:43 16:58 WBC (4.50-10.00) X 10*3/uL RBC (4.10-5.20) X 10*6/uL MCV (80.0-97.0) fL MCH (27.0-32.0) pg MCHC (32.0-37.0) g/dL RDW (11.5-14.5) % Plt Count (140-440) X 10*3/uL Plt Count Comment Absolute Nucleated RBC (0.00-0.00) X 10*3/uL NRBC/100 WBC Diff (0.0-0.0) /100 WBCS PT (9.9-11.9) sec INR (0.90-1.11) Chloride (96-109) mmol/L BUN/Creatinine Ratio (12.00-20.00) Ratio Glucose (70-110) mg/dL POC Glucose (mg/dL) 114 H 151 H (75-99) mg/dL Total Bilirubin (0.3-1.2) mg/dL AST (13-35) U/L ALT (8-44) U/L Alkaline Phosphatase (41-126) U/L Ammonia (<30) umol/L Total Protein (6.2-8.2) g/dL Albumin (3.80-4.90) g/dL Albumin (PEP) (3.80-4.90) g/dL Albumin/Globulin Ratio (1.60-3.17) g/dL Hsioz-2-Uxydjaqyk (0.60-1.00) g/dL Gamma Globulins (0.70-1.50) g/dL Tumor Marker AFP (0.0-7.9) ng/mL Microbiology - Last 24 Hours (Table) 12/03/20 23:59 Blood Culture - Preliminary Blood No Growth after 48 hours 12/03/20 23:54 Blood Culture - Preliminary Blood No Growth after 48 hours Assessment and Plan Plan: Assessment: #1. Diffuse multifocal opacities and small nodules on the bilateral lungs, rule out infectious etiology, pro-calcitonin level is pending at this time, and consider possibility of metastatic breast cancer #2. History of breast cancer 2, status post double mastectomy #3. Urinary tract infection #4. Elevated lactic acid #5. Elevated transaminases, GI service is following, possibility of cirrhotic liver, GI service to comment on that #6. Acute metabolic encephalopathy related to elevated ammonia level, possible hepatic encephalopathy #7. Type 2 diabetes mellitus #8. Obstructive sleep apnea #9. Benign essential hypertension Plan: Continue Zosyn, awaiting pro-calcitonin level, CT chest results were discussed with the patient and her daughter, and the possibilities including infectious etiology versus metastatic malignancy possibly related to history of breast cancer. If the pro-calcitonin level is negative and possibility of infection is ruled out, and patient remains stable from pulmonary perspective and she can be discharged home we will follow up with the patient on an outpatient basis and set up for bronchoscopy and biopsies on an outpatient basis. This was discussed with the patient's daughter who is agreeable with the plan, we will continue to follow I performed a history & physical examination of the patient and discussed their management with my nurse practitioner, Josefina Hernandez. I reviewed the nurse practitioner's note and agree with the documented findings and plan of care. Lung sounds are positive for clear breath sounds. The findings and the impression was discussed with the patient. I attest to the documentation by the nurse practitioner. Time with Patient: Less than 30
[2020-12-06 21:04] LABS: Glucose,Whole Blood 157 mg/dL (75-99)
[2020-12-06] MEDS: INSULIN DETEMIR (LEVEMIR) 100 UNIT/ML SYR SQ SCH (21:36)
[2020-12-07] MEDS: PIPERACILLIN-TAZOBACTAM 3.375 GM in SODIUM CHLORIDE 0.9% 100 ML IVPB SCH ×3 (00:08→15:37)
[2020-12-07 07:27] LABS: Glucose,Whole Blood 105 mg/dL (75-99)
[2020-12-07] MEDS: INSULIN ASPART (NovoLOG) 100 UNIT/ML VIAL SQ SCH ×4 (08:26→21:30)
[2020-12-07] MEDS: LOSARTAN 50 MG TAB PO SCH (08:40)
[2020-12-07] MEDS: amLODIPine 5 MG TAB PO SCH (08:40)
[2020-12-07] MEDS: PANTOPRAZOLE 40 MG TABLET PO SCH (08:40)
[2020-12-07] MEDS: ASPIRIN 81 MG PO SCH (08:40)
[2020-12-07] MEDS: CHOLECALCIFEROL 25 MCG (1000 IU) TABLET PO SCH (08:40)
[2020-12-07] MEDS: LACTULOSE 20 GM/30 ML CUP PO SCH ×2 (08:40→21:29)
[2020-12-07] MEDS: FUROSEMIDE 10 MG/ML 4 ML VIAL IV SCH (08:41)
[2020-12-07] MEDS ORDERED: LORazepam 1 MG TAB PO PRN (10:13)
[2020-12-07 10:40] LABS: Anisocytosis Slight; HGB 13.7 gm/dL (11.4-16.0); Hypochromasia Marked; MCH 23.8 pg (25.0-35.0); MCHC 30.5 g/dL (31.0-37.0); MCV 78.1 fL (80.0-100.0); Microcytosis Slight; Poikilocytosis Slight; RBC 5.76 m/uL (3.80-5.40); RDW 17.5 % (11.5-15.5); WBC 17.5 k/uL (3.8-10.6)
[2020-12-07 11:16] LABS: ALT 185 U/L (4-34); AST 274 U/L (14-36); African American GFR (CKD) 70 (>60 ml/min/1.73 sqM); Albumin 2.4 g/dL (3.5-5.0); Albumin/Globulin Ratio 0.6; Alkaline Phosphatase 256 U/L (38-126); Anion Gap 10 mmol/L; Blood Urea Nitrogen 31 mg/dL (7-17); Calcium 9.7 mg/dL (8.4-10.2); Carbon Dioxide 22 mmol/L (22-30); Chloride 109 mmol/L (98-107); Globulin 4.1 g/dL; Glucose 118 mg/dL (74-99); Non-African American GFR(CKD) 61 (>60 ml/min/1.73 sqM); Potassium 3.7 mmol/L (3.5-5.1); Sodium 141 mmol/L (137-145); Total Bilirubin 5.2 mg/dL (0.2-1.3); Total Protein 6.5 g/dL (6.3-8.2)
[2020-12-07 11:31] LABS: Glucose,Whole Blood 104 mg/dL (75-99)
[2020-12-07 12:08] LABS: Platelet Count 91 k/uL (150-450)
--- NOTE | 2020-12-07 13:08 | P.PN ---
Subjective Progress Note Date: 12/07/20 Principal diagnosis: Elevated LFTs and jaundice and examined sitting up in a bedside chair. She states she has mild abdominal discomfort. She is on lactulose 30 mL twice a day, evening dose was held. Nursing is reporting 3-4 bowel movements a day. She is answering questions appropriately, she is alert and oriented and scheduled to go down for an MRI. Bilirubin increased today to 5.2 from 3.2 with mild trending elevation in LFTs. Ammonia 18. Objective - Vital Signs Vital signs: Vital Signs Temp 97.4 F L 12/07/20 07:53 Pulse 73 12/07/20 07:53 Resp 18 12/07/20 08:45 BP 105/63 12/07/20 07:53 Pulse Ox 96 12/07/20 07:53 Intake & Output 12/06/20 12/07/20 12/07/20 18:59 06:59 18:59 Other: Voiding Method Toilet Toilet Toilet Incontinent Incontinent # Voids 2 1 # Bowel Movements 1 - Exam General appearance: The patient is alert, orientedx3, appears in no acute distress. HET: Head is normocephalic and atraumatic. Conjunctiva pink. Sclera anicteric. Neck: Supple without lymphadenopathy. Abdomen: Soft, mild tenderness, nondistended with bowel sounds. No guarding or rigidity. Extremities: Normal skin color and turgor. No pedal edema Skin: No rashes, mild jaundice Neurological: No focal deficits. Alert and oriented 3. - Labs CBC & Chem 7: 12/07/20 10:26 12/07/20 10:26 Labs: Abnormal Lab Results - Last 24 Hours (Table) 12/05/20 12/05/20 12/06/20 Range/Units 02:47 02:47 06:24 WBC 18.19 H (4.50-10.00) X 10*3/uL RBC 5.28 H (4.10-5.20) X 10*6/uL MCV 73.1 L (80.0-97.0) fL MCH 23.3 L (27.0-32.0) pg MCHC 31.9 L (32.0-37.0) g/dL RDW 19.3 H (11.5-14.5) % Plt Count 116 L (140-440) X 10*3/uL Plt Count Comment DECREASED A Absolute Nucleated RBC 0.04 H (0.00-0.00) X 10*3/uL NRBC/100 WBC Diff 0.2 H (0.0-0.0) /100 WBCS PT (9.9-11.9) sec INR (0.90-1.11) Chloride (96-109) mmol/L BUN/Creatinine Ratio (12.00-20.00) Ratio Glucose (70-110) mg/dL POC Glucose (mg/dL) (75-99) mg/dL Total Bilirubin (0.3-1.2) mg/dL AST (13-35) U/L ALT (8-44) U/L Alkaline Phosphatase (41-126) U/L Total Protein (6.2-8.2) g/dL Albumin (3.80-4.90) g/dL Albumin (PEP) 2.37 L (3.80-4.90) g/dL Albumin/Globulin Ratio (1.60-3.17) g/dL Pbehx-9-Ljjbisyzc 0.47 L (0.60-1.00) g/dL Gamma Globulins 1.85 H (0.70-1.50) g/dL Procalcitonin 0.22 H (0.02-0.09) ng/mL 12/06/20 12/06/20 12/06/20 Range/Units 06:24 06:24 06:24 WBC (4.50-10.00) X 10*3/uL RBC (4.10-5.20) X 10*6/uL MCV (80.0-97.0) fL MCH (27.0-32.0) pg MCHC (32.0-37.0) g/dL RDW (11.5-14.5) % Plt Count (140-440) X 10*3/uL Plt Count Comment Absolute Nucleated RBC (0.00-0.00) X 10*3/uL NRBC/100 WBC Diff (0.0-0.0) /100 WBCS PT 20.2 H (9.9-11.9) sec INR 1.93 H (0.90-1.11) Chloride 112 H (96-109) mmol/L BUN/Creatinine Ratio 32.50 H (12.00-20.00) Ratio Glucose 129 H (70-110) mg/dL POC Glucose (mg/dL) (75-99) mg/dL Total Bilirubin 3.2 H (0.3-1.2) mg/dL AST 243 H (13-35) U/L ALT 227 H (8-44) U/L Alkaline Phosphatase 218 H (41-126) U/L Total Protein 5.7 L (6.2-8.2) g/dL Albumin 2.40 L (3.80-4.90) g/dL Albumin (PEP) (3.80-4.90) g/dL Albumin/Globulin Ratio 0.73 L (1.60-3.17) g/dL Hxylg-9-Qfgdqpnlv (0.60-1.00) g/dL Gamma Globulins (0.70-1.50) g/dL Procalcitonin 0.23 H (0.02-0.09) ng/mL 12/06/20 12/06/20 12/06/20 Range/Units 11:43 16:58 20:52 WBC (4.50-10.00) X 10*3/uL RBC (4.10-5.20) X 10*6/uL MCV (80.0-97.0) fL MCH (27.0-32.0) pg MCHC (32.0-37.0) g/dL RDW (11.5-14.5) % Plt Count (140-440) X 10*3/uL Plt Count Comment Absolute Nucleated RBC (0.00-0.00) X 10*3/uL NRBC/100 WBC Diff (0.0-0.0) /100 WBCS PT (9.9-11.9) sec INR (0.90-1.11) Chloride (96-109) mmol/L BUN/Creatinine Ratio (12.00-20.00) Ratio Glucose (70-110) mg/dL POC Glucose (mg/dL) 114 H 151 H 157 H (75-99) mg/dL Total Bilirubin (0.3-1.2) mg/dL AST (13-35) U/L ALT (8-44) U/L Alkaline Phosphatase (41-126) U/L Total Protein (6.2-8.2) g/dL Albumin (3.80-4.90) g/dL Albumin (PEP) (3.80-4.90) g/dL Albumin/Globulin Ratio (1.60-3.17) g/dL Mfilo-7-Vvejqjmfp (0.60-1.00) g/dL Gamma Globulins (0.70-1.50) g/dL Procalcitonin (0.02-0.09) ng/mL 12/07/20 Range/Units 07:13 WBC (4.50-10.00) X 10*3/uL RBC (4.10-5.20) X 10*6/uL MCV (80.0-97.0) fL MCH (27.0-32.0) pg MCHC (32.0-37.0) g/dL RDW (11.5-14.5) % Plt Count (140-440) X 10*3/uL Plt Count Comment Absolute Nucleated RBC (0.00-0.00) X 10*3/uL NRBC/100 WBC Diff (0.0-0.0) /100 WBCS PT (9.9-11.9) sec INR (0.90-1.11) Chloride (96-109) mmol/L BUN/Creatinine Ratio (12.00-20.00) Ratio Glucose (70-110) mg/dL POC Glucose (mg/dL) 105 H (75-99) mg/dL Total Bilirubin (0.3-1.2) mg/dL AST (13-35) U/L ALT (8-44) U/L Alkaline Phosphatase (41-126) U/L Total Protein (6.2-8.2) g/dL Albumin (3.80-4.90) g/dL Albumin (PEP) (3.80-4.90) g/dL Albumin/Globulin Ratio (1.60-3.17) g/dL Qzzxk-4-Bncagsjyv (0.60-1.00) g/dL Gamma Globulins (0.70-1.50) g/dL Procalcitonin (0.02-0.09) ng/mL Microbiology - Last 24 Hours (Table) 12/03/20 23:59 Blood Culture - Preliminary Blood No Growth after 72 hours 12/03/20 23:54 Blood Culture - Preliminary Blood No Growth after 72 hours Assessment and Plan (1) Transaminitis Narrative/Plan: This is a pleasant 72-year-old female with elevated liver function tests and jaundice who has no prior history of chronic liver disease. Currently patient has no abdominal pain nausea or vomiting. Ultrasound and CT scan showed nodular appearing liver consistent with liver cirrhosis. There is questionable history of fatty liver disease diagnosed before. Ultrasound of the gallbladder did not show any evidence of gallstones. However it appeared slightly distended with no biliary ductal dilation. The patient denies being on any new medications recently and no antibiotic use. He should also has evidence of mild coag ulopathy secondary to underlying liver disease. She is not on any anticoagulation. Etiology of elevated LFTs remains unclear at this time, however likely related to nonalcoholic fatty liver. Full liver serology was ordered. Liver MRI ordered. Current Visit: Yes Status: Acute Code(s): R74.01 - ELEVATION OF LEVELS OF LIVER TRANSAMINASE LEVELS SNOMED Code(s): 522024890 (2) Confusion Narrative/Plan: Patient mildly confused, ammonia level is 50. Rule out hepatic encephalopathy. Lactulose started, will increase to 30 mL 3 times a day. Current Visit: Yes Status: Acute Code(s): R41.0 - DISORIENTATION, UNSPECIFIED SNOMED Code(s): 497806656 Plan: 1. Continue symptomatic and supportive care 2. Full liver serology ordered, negative to date other than elevated AFP 3. Hepatitis serologies ordered, negative 4. Continue to monitor daily CMP, ammonia level 5. Increase lactulose to 30 mL 2 times a day, titrate to have 3-4 bowel movements daily 6. MRI of the liver ordered, further recommendations to follow 7. Oncology Dr. Mccurdy consult, known to patient for prior breast cancer Thank you for this consultation, we will continue to follow. Dr. Jack I agree with the dictator's note, documented as a scribe by Berenice Mead.
--- NOTE | 2020-12-07 14:00 | P.PN ---
Subjective From records: This is a 80-year-old patient of Dr. Siddiqui: Was chronic stable medical conditions include diabetes, GERD, hypertension, hyperlipidemia, fatty liver, hiatal hernia, urinary incontinence obstructive sleep apnea. Patient is brought in by the EMS. Per the EMS report patient been complaining of weakness and loss of appetite for the past week. Patient called to sit on a chair and slid off the ground. Did not hit her head. No loss of conscious. While signs noted by the EMS at the incision site included blood pressure 74/50, pulse 88, respirations 16, pulse ox 95% on room air. EKG tracing sinus rhythm Patient not the best of historians and is unclear as to why exactly she was brought in. Denies any fever and chills. Denies any nausea vomiting. She can tell me the place but she cannot tell me the year. Subjective: 12/05/2020 This is a pleasant 80 years old female who presents because of fall. She is confused to the surrounding especially regarding time but she is oriented to place and person, she has also some memory problem and she does not remember why she is in the hospital. She follows commands easily. She is complaining of from dry cough on some dyspnea but no chest pain. She has some increased urinary frequency but no dysuria. She has decreased appetite. She was mildly hypoxic and low 90s of needing liter per minute of oxygen to keep her oxygen saturation above 94%. Rest of Vit[place] looks stable. showing WBC increased from 16 up to 18 K daily, INR was 2.4 on admission. Her liver enzymes are elevated as well as bilirubin code number is TRENDING down and while bilirubin is still elevated at 3.3. CT of the abdomen and pelvis showing possible pulmonary infiltrates and nodules, cirrhosis which is hepatitis versus metastasis is suspected and dilated gallbladder however surgical team provided patient with no cholecystitis and no need for surgical intervention. Pulmonary lesion is suspected of CHF versus infiltrate versus lymphangitic metastatic disease. Because of this pulmonary team were consulted. GI team on the case and the recommended workup for cirrhosis which is pending, rule out labs for more details Discontinue Zocor for elevated liver enzymes. Stop IV fluids and start the patient on Lasix for 3 days. Continue with cefepime. Also patient is on long acting insulin 16 units per night. Also she is on lactulose but ammonia level is normal. 12/06/2020 Patient is awake and oriented today she is calm sitting in bed and not moving around. She denies any significant symptoms. But she is not eating well stating this morning her breakfast was called. Today she is awake and alert and oriented 3 including the year 2020. She could not remember why she hospital other than she fell but she follow command and her mentation is improved compared to yesterday. She is a little short of breath with dry cough but no chest pain and she holding oxygen saturation of 92% on 2 L oxygen via nasal cannula. She has bilateral leg swelling and she complains from constipation but she is not eating. Pulmonary input is appreciated, as CT of the chest showing diffuse innumerable multifocal obesity and small nodules of bilateral lungs. May represent infectious etiology and they recommended short-term follow-up as an outpatient. She was on cefepime which is switched to Zosyn now. Pro-calcitonin, proBNP and echo are pending She has leukocytosis 18 K, INR 1.9, liver enzymes are trending down but bilirubin is still elevated at 3.2. Hepatitis panel is negative and fetoprotein is elevated and GI team are requesting MRI of the liver. Pulmonary level is high at 46 patient is on lactulose. She is also on Lasix IV 40 mg daily. Advil fluid restriction 12/07/2020 Patient is awake and alert today, she is mildly dyspneic at rest but more with exertion and some dry coughing. She is not eating because of low appetite. She has diarrhea while on lactulose with a goal about 3-4 bowel movements per day. Oxygen saturation at 2 L/m, which is resolved vitals are stable. Patient is going for MRI of the liver today. WBC is 17 K, liver enzymes are the same but bilirubin increased to 5.2, ammonia is normal A today at 18. She remains on Zosyn and IV Lasix 40 mg daily We will keep monitoring Objective - Vital Signs Vital signs: Vital Signs Temp 97.4 F L 12/07/20 07:53 Pulse 73 12/07/20 07:53 Resp 18 12/07/20 08:45 BP 105/63 12/07/20 07:53 Pulse Ox 96 12/07/20 07:53 Intake & Output 12/06/20 12/07/20 12/07/20 18:59 06:59 18:59 Other: Voiding Method Toilet Toilet Toilet Incontinent Incontinent # Voids 2 1 # Bowel Movements 1 - Exam -GENERAL: The patient is alert and oriented x2, not in any acute distress. Patient is weak and fatigued HEENT: Pupils are round and equally reacting to light. EOMI. No scleral icterus. No conjunctival pallor. Normocephalic, atraumatic. No pharyngeal erythema. No thyromegaly. CARDIOVASCULAR: S1 and S2 present. No murmurs, rubs, or gallops. PULMONARY: Chest is clear to auscultation, no wheezing or crackles. ABDOMEN: Soft, nontender, nondistended, normoactive bowel sounds. No palpable organomegaly. MUSCULOSKELETAL: No joint swelling or deformity. EXTREMITIES: No cyanosis, clubbing, or pedal edema. NEUROLOGICAL: Gross neurological examination did not reveal any focal deficits. SKIN: No rashes. no petechiae. - Labs CBC & Chem 7: 12/07/20 10:26 12/07/20 10:26 Labs: Abnormal Lab Results - Last 24 Hours (Table) 12/05/20 12/06/20 12/06/20 Range/Units 02:47 06:24 16:58 WBC (3.8-10.6) k/uL RBC (3.80-5.40) m/uL MCV (80.0-100.0) fL MCH (25.0-35.0) pg MCHC (31.0-37.0) g/dL RDW (11.5-15.5) % Plt Count (150-450) k/uL Chloride (98-107) mmol/L BUN (7-17) mg/dL Glucose (74-99) mg/dL POC Glucose (mg/dL) 151 H (75-99) mg/dL Total Bilirubin (0.2-1.3) mg/dL AST (14-36) U/L ALT (4-34) U/L Alkaline Phosphatase (38-126) U/L Albumin (3.5-5.0) g/dL Procalcitonin 0.22 H 0.23 H (0.02-0.09) ng/mL 12/06/20 12/07/20 12/07/20 Range/Units 20:52 07:13 10:26 WBC 17.5 H (3.8-10.6) k/uL RBC 5.76 H (3.80-5.40) m/uL MCV 78.1 L (80.0-100.0) fL MCH 23.8 L (25.0-35.0) pg MCHC 30.5 L (31.0-37.0) g/dL RDW 17.5 H (11.5-15.5) % Plt Count 91 L (150-450) k/uL Chloride (98-107) mmol/L BUN (7-17) mg/dL Glucose (74-99) mg/dL POC Glucose (mg/dL) 157 H 105 H (75-99) mg/dL Total Bilirubin (0.2-1.3) mg/dL AST (14-36) U/L ALT (4-34) U/L Alkaline Phosphatase (38-126) U/L Albumin (3.5-5.0) g/dL Procalcitonin (0.02-0.09) ng/mL 12/07/20 12/07/20 Range/Units 10:26 11:25 WBC (3.8-10.6) k/uL RBC (3.80-5.40) m/uL MCV (80.0-100.0) fL MCH (25.0-35.0) pg MCHC (31.0-37.0) g/dL RDW (11.5-15.5) % Plt Count (150-450) k/uL Chloride 109 H (98-107) mmol/L BUN 31 H (7-17) mg/dL Glucose 118 H (74-99) mg/dL POC Glucose (mg/dL) 104 H (75-99) mg/dL Total Bilirubin 5.2 H (0.2-1.3) mg/dL AST 274 H (14-36) U/L ALT 185 H (4-34) U/L Alkaline Phosphatase 256 H (38-126) U/L Albumin 2.4 L (3.5-5.0) g/dL Procalcitonin (0.02-0.09) ng/mL Microbiology - Last 24 Hours (Table) 12/03/20 23:59 Blood Culture - Preliminary Blood No Growth after 72 hours 12/03/20 23:54 Blood Culture - Preliminary Blood No Growth after 72 hours Assessment and Plan Assessment: -Checks x-ray shows bilateral infiltrates. Suspect pneumonia vs edema, which is cystic disease also suspected -Possible Hepatitis with some evidence of cirrhosis on CT. -Elevated alpha-fetoprotein, rule out hepatic cancer -Possible hepatic encephalopathy with elevated ammonia, improving -Obesity BMI 32.8 -Diabetes mellitus type 2, chronically on insulin -GERD -Hyperlipidemia -Essential hypertension -Dilated gallbladder. Denies any obvious abdominal symptoms. No Gr sign. No hydronephrosis or surgery team -Obstructive sleep apnea -Hiatal hernia -Chronic urinary stress incontinence Plan: This is a pleasant 80 years old female who presents with fall, possible pneumonia versus edema, cirrhosis of the liver versus hepatitis. Patient continue on antibiotics, cefepime. Short course of Lasix. Continue with lactulose. Continue with workup for cirrhosis per GI team. Case closely. MRI of the liver Hold [facility] Surgical team also pulmonary teams were consulted Labs and medication were reviewed.. Continue same treatment. Continue with symptomatic treatment. Resume home medication. Monitor lytes and vitals. DVT and GI prophylaxis. Further recommendationsas per clinical course of the patient DVT prophylaxis: High INR GI Prophylaxis: Ppi PT/OT: Pending Prognosis is guarded
[2020-12-07 16:49] LABS: Glucose,Whole Blood 121 mg/dL (75-99)
--- NOTE | 2020-12-07 17:40 | P.PN ---
Subjective Progress Note Date: 12/07/20 This is a 80-year-old female with history of multiple medical problems including hypertension, dyslipidemia, fatty liver, breast cancer, urinary incontinence, bilateral mastectomy, type 2 diabetes, patient was admitted on 12/03/2020, mostly with symptoms of weakness. Patient was brought in by EMS, and apparently she has been complaining of weakness and poor appetite for the past week. The patient herself is a poor historian, could not get much information from the patient, and there wasn't much information in the chart to speak of. At any rate the patient was admitted, she was noted to have elevated liver enzymes. Leukocytosis. Elevated lactic acid of 7.4. Abnormal urinalysis consistent with UTI. Negative ECR for COVID-19 infection. Chest x-ray question bilateral infiltrates, not clear whether the infiltrates are truly pneumonic in nature or could be related to fluids or possibly even pulmonary fibrosis. Considering that clinical history is not suggestive of pneumonia, I did recommen d a pro-calcitonin level, I also recommended a BNP level, a high-resolution CT of the chest, in the meantime the patient is on antibiotics for UTI, and presumptive pneumonia. On 12/06/2020 patient seen in follow-up on medical surgical floor, CT chest was completed last night showing diffuse innumerable multifocal opacities and small nodules of the bilateral lungs, small layering of the pleural effusions bilaterally, and the findings could represent infectious etiology although they are nonspecific. Patient is also breast cancer survivor 2 status post bilateral mastectomy, and there is a possibility of underlying malignancy as well. She appears to be nontoxic, appears to be breathing comfortably, no cough, she is on 2 L of oxygen and pulse ox is 92%, she has been afebrile, pro-calcitonin he has been ordered and is pending at this time, she has had no fever. Denied any chills, no chest pain, no hemoptysis, although her white blood cell count is elevated and at 18.19, hemoglobin is 12.3, electrolytes and renal profile are unremarkable, her proBNP was within normal limits, 3, her t roponin admission was negative, her liver enzymes were elevated and they are improving on today's labs, GI service is following, and gallbladder ultrasound was completed showing heterogeneous lobular contour of the liver, patient's AFP marker was also elevated. Patient does have a history of fatty liver, nonalcoholic. She appears to be breathing comfortably On 12/07/2020 patient is down for MRI of the liver, and is not in the room at the time of our evaluation, however her daughter is at the bedside and we spoke to the daughter regarding the patient's condition today, there is no reported d yspnea, patient has remained on 2 L of oxygen, maintaining O2 saturations above 90%, she's been afebrile, hemodynamically she has been stable, no reported dyspnea, no cough, today's labs have been reviewed, white blood cell count 17.5, hemoglobin 13.7, sodium is 141, potassium is 3.7, chloride is 109, BUN 31, creatinine 0.91, AST is 274, ALT is 185, alk phos is 256, ammonia level is 18, pro-calcitonin level came back negative 2, and 0.22 and 0.23, ALEX screen was negative, COVID-19 was negative, COVID-19 antibiotic test was nonreactive, hepatitis panel was nonreactive. Objective - Vital Signs Vital signs: Vital Signs Temp 99.2 F 12/07/20 14:00 Pulse 81 12/07/20 14:00 Resp 18 12/07/20 14:00 BP 116/67 12/07/20 14:00 Pulse Ox 93 L 12/07/20 14:00 Intake & Output 12/06/20 12/07/20 12/07/20 18:59 06:59 18:59 Other: Voiding Method Toilet Toilet Toilet Incontinent Incontinent # Voids 2 1 # Bowel Movements 1 - Exam GENERAL EXAM: Alert, hard of hearing, 80-year-old white female on 2 L of oxygen, breathing comfortably, appears to be in no acute distress comfortable in no apparent distress. HEAD: Normocephalic/atraumatic. EYES: Normal reaction of pupils, equal size. Conjunctiva pink, sclera white. NOSE: Clear with pink turbinates. THROAT: No erythema or exudates. NECK: No masses, no JVD, no thyroid enlargement, no adenopathy. CHEST: No chest wall deformity. Symmetrical expansion. LUNGS: Equal air entry with no crackles, wheeze, rhonchi or dullness. CVS: Regular rate and rhythm, normal S1 and S2, no gallops, no murmurs, no rubs ABDOMEN: Soft, nontender. No hepatosplenomegaly, normal bowel sounds, no guarding or rigidity. EXTREMITIES: No clubbing, no edema, no cyanosis, 2+ pulses and upper and lower extremities. MUSCULOSKELETAL: Muscle strength and tone normal. SPINE: No scoliosis or deformity SKIN: No rashes CENTRAL NERVOUS SYSTEM: Alert and oriented -3. No focal deficits, tone is normal in all 4 extremities. PSYCHIATRIC: Alert and oriented -3. Appropriate affect. Intact judgment and insight. - Labs CBC & Chem 7: 12/07/20 10:26 12/07/20 10:26 Labs: Abnormal Lab Results - Last 24 Hours (Table) 12/05/20 12/06/20 12/06/20 Range/Units 02:47 06:24 20:52 WBC (3.8-10.6) k/uL RBC (3.80-5.40) m/uL MCV (80.0-100.0) fL MCH (25.0-35.0) pg MCHC (31.0-37.0) g/dL RDW (11.5-15.5) % Plt Count (150-450) k/uL Chloride (98-107) mmol/L BUN (7-17) mg/dL Glucose (74-99) mg/dL POC Glucose (mg/dL) 157 H (75-99) mg/dL Total Bilirubin (0.2-1.3) mg/dL AST (14-36) U/L ALT (4-34) U/L Alkaline Phosphatase (38-126) U/L Albumin (3.5-5.0) g/dL Procalcitonin 0.22 H 0.23 H (0.02-0.09) ng/mL 12/07/20 12/07/20 12/07/20 Range/Units 07:13 10:26 10:26 WBC 17.5 H (3.8-10.6) k/uL RBC 5.76 H (3.80-5.40) m/uL MCV 78.1 L (80.0-100.0) fL MCH 23.8 L (25.0-35.0) pg MCHC 30.5 L (31.0-37.0) g/dL RDW 17.5 H (11.5-15.5) % Plt Count 91 L (150-450) k/uL Chloride 109 H (98-107) mmol/L BUN 31 H (7-17) mg/dL Glucose 118 H (74-99) mg/dL POC Glucose (mg/dL) 105 H (75-99) mg/dL Total Bilirubin 5.2 H (0.2-1.3) mg/dL AST 274 H (14-36) U/L ALT 185 H (4-34) U/L Alkaline Phosphatase 256 H (38-126) U/L Albumin 2.4 L (3.5-5.0) g/dL Procalcitonin (0.02-0.09) ng/mL 12/07/20 12/07/20 Range/Units 11:25 16:45 WBC (3.8-10.6) k/uL RBC (3.80-5.40) m/uL MCV (80.0-100.0) fL MCH (25.0-35.0) pg MCHC (31.0-37.0) g/dL RDW (11.5-15.5) % Plt Count (150-450) k/uL Chloride (98-107) mmol/L BUN (7-17) mg/dL Glucose (74-99) mg/dL POC Glucose (mg/dL) 104 H 121 H (75-99) mg/dL Total Bilirubin (0.2-1.3) mg/dL AST (14-36) U/L ALT (4-34) U/L Alkaline Phosphatase (38-126) U/L Albumin (3.5-5.0) g/dL Procalcitonin (0.02-0.09) ng/mL Microbiology - Last 24 Hours (Table) 12/03/20 23:59 Blood Culture - Preliminary Blood No Growth after 72 hours 12/03/20 23:54 Blood Culture - Preliminary Blood No Growth after 72 hours Assessment and Plan Plan: Assessment: #1. Diffuse multifocal opacities and small nodules on the bilateral lungs, rule out infectious etiology, and consider possibility of metastatic breast cancer. Pro-calcitonin level was negative [place] possibility of infectious etiology less likely #2. History of breast cancer 2, status post double mastectomy #3. Urinary tract infection #4. Elevated lactic acid #5. Elevated transaminases, GI service is following, possibility of cirrhotic liver, GI service to comment on that #6. Acute metabolic encephalopathy related to elevated ammonia level, possible hepatic encephalopathy #7. Type 2 diabetes mellitus #8. Obstructive sleep apnea #9. Benign essential hypertension Plan: Pro-calcitonin level was negative, we'll stop the Zosyn, patient is having the MRI of the liver, we discussed the case with GI service, and if there is a more accessible lesion found in the liver it would be best to biopsy the liver lesion. If unable to obtain biopsy of the liver may consider doing bronchoscopy and biopsies of the pulmonary nodules on outpatient basis From pulmonary perspective she could be considered for discharge when cleared by medicine and other consultants on the case and will keep follow-up with her on an outpatient basis I performed a history & physical examination of the patient and discussed their management with my nurse practitioner, Josefina Hernandez. I reviewed the nurse practitioner's note and agree with the documented findings and plan of care. Lung sounds are positive for clear breath sounds. The findings and the impression was discussed with the patient. I attest to the documentation by the nurse practitioner. Time with Patient: Less than 30
[2020-12-07 20:12] LABS: Glucose,Whole Blood 164 mg/dL (75-99)
[2020-12-07] MEDS: INSULIN DETEMIR (LEVEMIR) 100 UNIT/ML SYR SQ SCH (21:31)
[2020-12-08] MEDS: PIPERACILLIN-TAZOBACTAM 3.375 GM in SODIUM CHLORIDE 0.9% 100 ML IVPB SCH ×4 (00:29→23:57)
--- NOTE | 2020-12-08 05:53 | MR ---
EXAMINATION TYPE: MR liver wo/w con DATE OF EXAM: 12/07/2020 COMPARISON: CT scan 12/03/2020 HISTORY: heterogeneity of liver, elevated AFP CONTRAST: Standard multiplanar, multisequence MRI departmental protocol utilizing 10 mL intravenous Gadavist ga dolinium contrast. There is evidence for mild bilateral pleural effusions. There is a significant heterogeneity of the s ignal pattern throughout the liver. There is a somewhat geographic lesion there is poorly marginated in the posterior right lobe of the liver that measures 7 cm. There is similar appearing area in the a nterior left lobe of the liver measuring 6 cm. Liver margin is slightly irregular. This could relate to cirrhosis. Contrast images do not show pathologic liver enhancement. There is dilated gallbladder measuring 5.5 cm in diameter. Intrahepatic bile ducts do not appear dilated. There is normal contrast opacification of the kidneys. There is no hydronephrosis. There is 2.5 cm co rtical cyst upper pole left kidney. I see no sign of an adrenal mass. There is no evidence of pancrea tic mass. Spleen is intact. There is no evidence of ascites. There is no retroperitoneal adenopathy. Pancreatic duct is not dilated. There is enlarged retroperitoneal lymph nodes at the level of the kidneys. These measure up to almost 3 cm. There are some enlarged gastrohepatic lymph nodes measuring up to 2 cm. I see no bony destruct alex process. IMPRESSION: Significant heterogeneity throughout the liver could relate to an multifocal infiltrative process suc h as lymphoma in this patient with also enlarged abdominal lymph nodes. Dilated gallbladder suggestive of cholecystitis. Pleural fluid and infiltrates at the lung bases.
[2020-12-08 07:25] LABS: Glucose,Whole Blood 128 mg/dL (75-99)
[2020-12-08] MEDS: INSULIN ASPART (NovoLOG) 100 UNIT/ML VIAL SQ SCH ×4 (07:41→21:30)
[2020-12-08] MEDS: amLODIPine 5 MG TAB PO SCH (07:47)
[2020-12-08] MEDS: ASPIRIN 81 MG PO SCH (07:47)
[2020-12-08] MEDS: PANTOPRAZOLE 40 MG TABLET PO SCH (07:47)
[2020-12-08] MEDS: CHOLECALCIFEROL 25 MCG (1000 IU) TABLET PO SCH (07:47)
[2020-12-08] MEDS: FUROSEMIDE 10 MG/ML 4 ML VIAL IV SCH (07:48)
[2020-12-08] MEDS: LACTULOSE 20 GM/30 ML CUP PO SCH ×2 (07:48→19:48)
[2020-12-08] MEDS: LOSARTAN 50 MG TAB PO SCH (07:48)
[2020-12-08 09:29] LABS: ALT 241 U/L (4-34); AST 562 U/L (14-36); African American GFR (CKD) 60 (>60 ml/min/1.73 sqM); Albumin 2.7 g/dL (3.5-5.0); Albumin/Globulin Ratio 0.6; Alkaline Phosphatase 273 U/L (38-126); Anion Gap 13 mmol/L; Blood Urea Nitrogen 39 mg/dL (7-17); Calcium 9.4 mg/dL (8.4-10.2); Carbon Dioxide 21 mmol/L (22-30); Chloride 106 mmol/L (98-107); Globulin 4.6 g/dL; Glucose 146 mg/dL (74-99); Non-African American GFR(CKD) 52 (>60 ml/min/1.73 sqM); Potassium 3.6 mmol/L (3.5-5.1); Sodium 140 mmol/L (137-145); Total Bilirubin 7.1 mg/dL (0.2-1.3); Total Protein 7.3 g/dL (6.3-8.2)
[2020-12-08 11:14] LABS: INR 2.7 (<1.2); Prothrombin Time 26.3 sec (9.0-12.0)
[2020-12-08 11:33] LABS: Glucose,Whole Blood 121 mg/dL (75-99)
--- NOTE | 2020-12-08 11:57 | P.CONS ---
History of Present Illness - Reason for Consult Consult date: 12/08/20 Concern for metastatic Cancer Requesting physician: Berenice Moreno - Chief Complaint Jaundice - History of Present Illness Mrs. Case is a pleasant 80 year old female patient who was originally diagnosed with Breast cancer in 2004, recurrence of contralateral breast in 2007, because of the length it has been I do not have electronic records regarding this diagnosis. She apparently underwent bilateral mastectimy, was prescribed endocrine therapy but could not obtain insurance coverage aat that time, therefore was never adhered to. She now presents after the past few months feeling progressively weaker, loss of appetite, jaundice. She did see her PCP who did notify her of increasing LFTS and to stop her statins. Her Daughter Jenny is at bedside during visit today. Other noted medical problems include: hypertension, dyslipidemia, fatty liver, breast cancer, urinary incontinence, bilateral mastectomy, type 2 diabetes, patient was admitted on 12/03/2020, mostly with symptoms of weakness. On Admission (brought in by EMS) elevated liver enzymes. Leukocytosis. Elevated lactic acid of 7.4. Abnormal urinalysis consistent with UTI. Negative PCR for COVID-19 infection. Chest x-ray question bilateral infiltrates, not clear whether the infiltrates are truly pneumoniac, a CT of the chest showing diffuse innumerable multifocal opacities and small nodules of the bilateral lungs, small layering of the pleural effusions bilaterally, and the findings cou ld represent infectious etiology although they are nonspecific, CT Abdomen and Pelvis and a confirmatory liver MRI revealed: bilateral lobe liver lesions. She is antibiotics for UTI, and presumptive pneumonia. Pulmonary and GI are following and discussed with GI. Patient was taking baby aspirin, which has been stopped as her INR continues to trend up, due to liver function, 2.7 today and 2.5mg of vitamin K has been ordered. She is up in a chair and alert, although very SLEETMUTE. SHe complains of lower back pain. She will need a tissue biopsy to obtain an outpatient PET scan/diagnosis. At this time the biopsy of the liver maybe the most resonable area due to access and size, however this does pose potential increase in bleeding risk with her being coagulapathic from decreased liver function. The lung nodules are non-specific but maybe able to capture via bronch and pose less overall risk - Per pulmonary note they would prefer outpatient PET first however this will be difficult to obtain insurance coverage for given no tissue diagnosis. She is working with PT/OT and IPR has been consulted in hopes to be considered for IPR given the current weakness likely due to underlying malignancy, UTI and hepatic encephalopathy and will likely not improve without diagnosis and treatment. If Estrogen positive breast cancer recurrence we could initiate treatment with Aromatasr inhibitor to continue during the delay in rehab. Past Medical History Past Medical History: Cancer, Diabetes Mellitus, GERD/Reflux, Hyperlipidemia, Hypertension, Liver Disease, Skin Disorder, Sleep Apnea/CPAP/BIPAP Additional Past Medical History / Comment(s): hx. "fatty liver", hx breast cancer, HIALTAL HERNIA, "little lumps on chest", thyroid nodule, urinary leakage History of Any Multi-Drug Resistant Organisms: None Reported Past Surgical History: Breast Surgery, Hysterectomy Additional Past Surgical History / Comment(s): consuelo. mastectomy, surgery on vocal cords to remove lumps, consuelo cataract surgery with lens implants Past Anesthesia/Blood Transfusion Reactions: No Reported Reaction Past Psychological History: No Psychological Hx Reported Smoking Status: Former smoker Past Alcohol Use History: None Reported Past Drug Use History: None Reported - Past Family History Mother Family Medical History: No Reported History Medications and Allergies Home Medications Medication Instructions Recorded Confirmed Type Aspirin 81 mg PO DAILY 01/25/15 12/03/20 History Cholecalciferol [Vitamin D3] 1,000 unit PO DAILY 01/25/15 12/03/20 History Furosemide [Lasix] 20 mg PO Q48H 01/25/15 12/03/20 History Omeprazole [PriLOSEC] 20 mg PO DAILY 01/25/15 12/03/20 History Potassium Chloride [Klor-Con 20] 10 meq PO Q48H 01/25/15 12/03/20 History metFORMIN HCL [Glucophage] 500 mg PO BID 01/25/15 12/03/20 History Insulin Glargine [Lantus] 22 unit SQ HS 05/24/20 12/03/20 History Pioglitazone HCl 45 mg PO DAILY 05/24/20 12/03/20 History amLODIPine [Norvasc] 5 mg PO DAILY 05/24/20 12/03/20 History Losartan Potassium 100 mg PO DAILY 12/03/20 12/03/20 History Simvastatin [Zocor] 20 mg PO DAILY 12/04/20 12/04/20 History Allergies Allergy/AdvReac Type Severity Reaction Status Date / Time cefazolin sodium [From Ancef] Allergy Itching/hiv Verified 12/03/20 22:45 es Physical Exam Vitals: Vital Signs Temp Pulse Resp BP Pulse Ox 12/08/20 07:45 18 12/08/20 07:08 97.4 F L 78 18 115/69 96 12/08/20 00:14 97.3 F L 92 16 114/70 96 12/07/20 19:41 16 12/07/20 19:01 97.3 F L 83 17 132/81 93 L 12/07/20 14:00 99.2 F 81 18 116/67 93 L Intake and Output 12/07/20 12/08/20 12/08/20 22:59 06:59 14:59 Other: Voiding Method Toilet Toilet Incontinent Incontinent # Voids 1 1 1 # Bowel Movements 2 1 1 - Constitutional General appearance: cooperative - EENT Eyes: scleral icterus ENT: hard of hearing - Neck Neck: normal ROM - Respiratory Respiratory: bilateral: diminished - Cardiovascular Rhythm: regularly irregular - Gastrointestinal General gastrointestinal: distended, soft - Integumentary Integumentary: jaundiced - Neurologic Neurologic: CNII-XII intact - Musculoskeletal Musculoskeletal: generalized weakness - Psychiatric Psychiatric: A&O x's 3, appropriate affect Results CBC & Chem 7: 12/08/20 08:40 12/08/20 08:40 Labs: Abnormal Lab Results - Last 24 Hours (Table) 12/07/20 12/07/20 12/07/20 Range/Units 10:26 16:45 20:10 Plt Count 91 L (150-450) k/uL PT (9.0-12.0) sec INR (<1.2) Carbon Dioxide (22-30) mmol/L BUN (7-17) mg/dL Glucose (74-99) mg/dL POC Glucose (mg/dL) 121 H 164 H (75-99) mg/dL Total Bilirubin (0.2-1.3) mg/dL AST (14-36) U/L ALT (4-34) U/L Alkaline Phosphatase (38-126) U/L Albumin (3.5-5.0) g/dL 12/08/20 12/08/20 12/08/20 Range/Units 07:07 08:40 08:40 Plt Count (150-450) k/uL PT 26.3 H (9.0-12.0) sec INR 2.7 H (<1.2) Carbon Dioxide 21 L (22-30) mmol/L BUN 39 H (7-17) mg/dL Glucose 146 H (74-99) mg/dL POC Glucose (mg/dL) 128 H (75-99) mg/dL Total Bilirubin 7.1 H (0.2-1.3) mg/dL AST 562 H (14-36) U/L ALT 241 H (4-34) U/L Alkaline Phosphatase 273 H (38-126) U/L Albumin 2.7 L (3.5-5.0) g/dL 12/08/20 Range/Units 11:27 Plt Count (150-450) k/uL PT (9.0-12.0) sec INR (<1.2) Carbon Dioxide (22-30) mmol/L BUN (7-17) mg/dL Glucose (74-99) mg/dL POC Glucose (mg/dL) 121 H (75-99) mg/dL Total Bilirubin (0.2-1.3) mg/dL AST (14-36) U/L ALT (4-34) U/L Alkaline Phosphatase (38-126) U/L Albumin (3.5-5.0) g/dL Microbiology - Last 24 Hours (Table) 12/03/20 23:59 Blood Culture - Preliminary Blood No Growth after 96 hours 12/03/20 23:54 Blood Culture - Preliminary Blood No Growth after [address] scan - abdomen: report reviewed CT scan - chest: report reviewed CT Scan - head: report reviewed CT scan - pelvis: report reviewed Assessment and Plan Plan: Pulmonary and Liver Lesons Tissue Biopsy needed: - Possibly lymph node surgical or excisional biopsy would be most relieable - Liver Biopsy although with coagulaopathy risk of bleeding, if pulmonary feels there is resonable approach to obtain via bronch agree -Baby Aspirin on Hold Hepatic Encephalopathy: - Lactulose continued - Monitor Daily CBC/CMP/COags Coagulopathy: - Likely secondary to increasing LFTs - Vitamin K today - MOnitor closely - Hold Baby Aspirin Weakness: 0 Likely secondary to underlying malignant process and will benefit from biopsy (if able) and plan prior (if an estrogen positive breast cancer could initiate endocrine therapy for control of cancer). Will need to closely monitor increasing LFTs and coagulopathy, discussed the overall intended plan, however concern of decreased liver function which is usually associated with overall poor prognosis. Physician Attest: I have completed the full history and physical and agree with above dictation, dictated as a scribe Await recs on best approach for tissue biopsy Monitor and control hepatic encephalopathy/coagulopathy monitor for bleeding Await PMR recs for IPR.
--- NOTE | 2020-12-08 13:29 | P.PN ---
Subjective From records: This is a 80-year-old patient of Dr. Siddiqui: Was chronic stable medical conditions include diabetes, GERD, hypertension, hyperlipidemia, fatty liver, hiatal hernia, urinary incontinence obstructive sleep apnea. Patient is brought in by the EMS. Per the EMS report patient been complaining of weakness and loss of appetite for the past week. Patient called to sit on a chair and slid off the ground. Did not hit her head. No loss of conscious. While signs noted by the EMS at the incision site included blood pressure 74/50, pulse 88, respirations 16, pulse ox 95% on room air. EKG tracing sinus rhythm Patient not the best of historians and is unclear as to why exactly she was brought in. Denies any fever and chills. Denies any nausea vomiting. She can tell me the place but she cannot tell me the year. Subjective: 12/05/2020 This is a pleasant 80 years old female who presents because of fall. She is confused to the surrounding especially regarding time but she is oriented to place and person, she has also some memory problem and she does not remember why she is in the hospital. She follows commands easily. She is complaining of from dry cough on some dyspnea but no chest pain. She has some increased urinary frequency but no dysuria. She has decreased appetite. She was mildly hypoxic and low 90s of needing liter per minute of oxygen to keep her oxygen saturation above 94%. Rest of Vitas looks stable. showing WBC increased from 16 up to 18 K daily, INR was 2.4 on admission. Her liver enzymes are elevated as well as bilirubin code number is TRENDING down and while bilirubin is still elevated at 3.3. CT of the abdomen and pelvis showing possible pulmonary infiltrates and nodules, cirrhosis which is hepatitis versus metastasis is suspected and dilated gallbladder however surgical team provided patient with no cholecystitis and no need for surgical intervention. Pulmonary lesion is suspected of CHF versus infiltrate versus lymphangitic metastatic disease. Because of this pulmonary team were consulted. GI team on the case and the recommended workup for cirrhosis which is pending, rule out labs for more details Discontinue Zocor for elevated liver enzymes. Stop IV fluids and start the patient on Lasix for 3 days. Continue with cefepime. Also patient is on long acting insulin 16 units per night. Also she is on lactulose but ammonia level is normal. 12/06/2020 Patient is awake and oriented today she is calm sitting in bed and not moving around. She denies any significant symptoms. But she is not eating well stating this morning her breakfast was called. Today she is awake and alert and oriented 3 including the year 2020. She could not remember why she hospital other than she fell but she follow command and her mentation is improved compared to yesterday. She is a little short of breath with dry cough but no chest pain and she holding oxygen saturation of 92% on 2 L oxygen via nasal cannula. She has bilateral leg swelling and she complains from constipation but she is not eating. Pulmonary input is appreciated, as CT of the chest showing diffuse innumerable multifocal obesity and small nodules of bilateral lungs. May represent infectious etiology and they recommended short-term follow-up as an outpatient. She was on cefepime which is switched to Zosyn now. Pro-calcitonin, proBNP and echo are pending She has leukocytosis 18 K, INR 1.9, liver enzymes are trending down but bilirubin is still elevated at 3.2. Hepatitis panel is negative and fetoprotein is elevated and GI team are requesting MRI of the liver. Pulmonary level is high at 46 patient is on lactulose. She is also on Lasix IV 40 mg daily. Advil fluid restriction 12/07/2020 Patient is awake and alert today, she is mildly dyspneic at rest but more with exertion and some dry coughing. She is not eating because of low appetite. She has diarrhea while on lactulose with a goal about 3-4 bowel movements per day. Oxygen saturation at 2 L/m, which is resolved vitals are stable. Patient is going for MRI of the liver today. WBC is 17 K, liver enzymes are the same but bilirubin increased to 5.2, ammonia is normal A today at 18. She remains on Zosyn and IV Lasix 40 mg daily We will keep monitoring 12/08/2020 Patient is more confused today, she told the nurse where she is at the hospital and the ureter bouts when I saw her she could not tell me these aforementioned however she is awake, lethargic, easily arousable to verbal and tactile sunlight but low back to sleep shortly after one answer or 2 answers. She follow commands easily and she denies headache, blurred vision, weakness or numbness. Bilateral segments the same and she still on the liter oxygen via nasal cannula, no CBC today, her INR went up to 2.7 today. Liver enzymes worsened slightly, her bilirubin also increased from 5.2 up to 7.1. However when we checked ammonia level today was normal at 20. MRI of the liver showing significant heterogenic night T throughout the liver couldn't related to an multifocal infiltrative process such as lymphoma in this patient with also a large abdominal lymph nodes. Dilated gallbladder suggestive of cholecystitis Pleural fluid and infiltrates of the lung bases. Patient remains on Zosyn although infection is less likely but will keep antibiotics because her pro- calcitonin was slightly elevated at 0.22 last time.We will recheck her pro- calcitonin tomorrow. Lasix 40 mg IV daily was stopped today. No IV fluids. Zocor remains on hold for elevated liver enzymes. She remains on lactulose to keep bowel movement 3-4 times per day which is the case for her. Hematology oncology services were consulted We will check a CT of the brain to rule out a bleed. Check labs tomorrow Review of systems CONSTITUTIONAL: No fever, no malaise, no fatigue. HEENT: No recent visual problems or hearing problems. Denied any sore throat. CARDIOVASCULAR: No orthopnea, PND, no palpitations, no syncope. PULMONARY: No chest wall tenderness Gastrointestinal: No diarrhea, no nausea, no vomiting, no abdominal pain. Normoactive bowel sounds. Active Medications Generic Name Dose Route Start Last Admin Trade Name Ben PRN Reason Stop Dose Admin Amlodipine Besylate 5 mg 12/04/20 09:00 12/08/20 07:47 Amlodipine 5 Mg Tab PO 5 mg DAILY ELSA Administration Aspirin 81 mg 12/04/20 09:00 12/08/20 07:47 Aspirin 81 Mg PO 81 mg DAILY ELSA Administration Cholecalciferol 25 mcg 12/06/20 09:00 12/08/20 07:47 Cholecalciferol 25 Mcg (1000 Iu) Tablet PO 25 mcg DAILY ELSA Administration Piperacillin Sod/Tazobactam 100 mls @ 25 mls/hr 12/06/20 16:00 12/08/20 07:48 Sod 3.375 gm/ Sodium Chloride IVPB 25 mls/hr Q8HR ELSA Administration Insulin Aspart 0 unit 12/04/20 12:30 12/08/20 11:36 Insulin Aspart (Novolog) 100 Unit/Ml Vial SQ Not Given ACHS [facility] Protocol Insulin Detemir 16 unit 12/05/20 04:09 12/07/20 21:31 Insulin Detemir (Levemir) 100 Unit/Ml Syr SQ 16 unit HS ELSA Administration Lactulose 30 gm 12/06/20 09:00 12/08/20 07:48 Lactulose 20 Gm/30 Ml Cup PO 30 gm BID ELSA Administration Lorazepam 1 mg 12/07/20 10:13 Lorazepam 1 Mg Tab PO ONCE PRN Anxiety Losartan Potassium 100 mg 12/04/20 09:00 12/08/20 07:48 Losartan 50 Mg Tab PO 100 mg DAILY ELSA Administration Naloxone HCl 0.2 mg 12/04/20 00:15 Naloxone 0.4 Mg/Ml 1 Ml Vial IV Q2M PRN Opioid Reversal Pantoprazole Sodium 40 mg 12/04/20 09:00 12/08/20 07:47 Pantoprazole 40 Mg Tablet PO 40 mg DAILY ELSA Administration Objective - Vital Signs Vital signs: Vital Signs Temp 97.4 F L 12/08/20 07:08 Pulse 78 12/08/20 07:08 Resp 18 12/08/20 07:45 BP 115/69 12/08/20 07:08 Pulse Ox 96 12/08/20 07:08 Intake & Output 12/07/20 12/08/20 12/08/20 18:59 06:59 18:59 Other: Voiding Method Toilet Toilet Toilet Incontinent Incontinent Incontinent # Voids 2 1 1 # Bowel Movements 2 1 1 - Exam -GENERAL: The patient is alert and oriented x1, patient was more confused today. More drowsy Follow commands, not in any acute distress. Patient is weak and fatigued HEENT: Pupils are round and equally reacting to light. EOMI. No scleral icterus. No conjunctival pallor. Normocephalic, atraumatic. No pharyngeal erythema. No thyromegaly. CARDIOVASCULAR: S1 and S2 present. No murmurs, rubs, or gallops. PULMONARY: Chest is clear to auscultation, no wheezing or crackles. ABDOMEN: Soft, nontender, nondistended, normoactive bowel sounds. No palpable organomegaly. MUSCULOSKELETAL: No joint swelling or deformity. EXTREMITIES: No cyanosis, clubbing, or pedal edema. NEUROLOGICAL: Gross neurological examination did not reveal any focal deficits. SKIN: No rashes. no petechiae. - Labs CBC & Chem 7: 12/07/20 10:26 12/08/20 08:40 Labs: Abnormal Lab Results - Last 24 Hours (Table) 12/07/20 12/07/20 12/08/20 Range/Units 16:45 20:10 07:07 PT (9.0-12.0) sec INR (<1.2) Carbon Dioxide (22-30) mmol/L BUN (7-17) mg/dL Glucose (74-99) mg/dL POC Glucose (mg/dL) 121 H 164 H 128 H (75-99) mg/dL Total Bilirubin (0.2-1.3) mg/dL AST (14-36) U/L ALT (4-34) U/L Alkaline Phosphatase (38-126) U/L Albumin (3.5-5.0) g/dL 12/08/20 12/08/20 12/08/20 Range/Units 08:40 08:40 11:27 PT 26.3 H (9.0-12.0) sec INR 2.7 H (<1.2) Carbon Dioxide 21 L (22-30) mmol/L BUN 39 H (7-17) mg/dL Glucose 146 H (74-99) mg/dL POC Glucose (mg/dL) 121 H (75-99) mg/dL Total Bilirubin 7.1 H (0.2-1.3) mg/dL AST 562 H (14-36) U/L ALT 241 H (4-34) U/L Alkaline Phosphatase 273 H (38-126) U/L Albumin 2.7 L (3.5-5.0) g/dL Microbiology - Last 24 Hours (Table) 12/03/20 23:59 Blood Culture - Preliminary Blood No Growth after 96 hours 12/03/20 23:54 Blood Culture - Preliminary Blood No Growth after 96 hours Assessment and Plan Assessment: -Checks x-ray shows bilateral infiltrates. Suspect pneumonia vs edema, which is cystic disease also suspected -Possible Hepatitis with some evidence of cirrhosis on CT. -Elevated alpha-fetoprotein, rule out hepatic cancer -Possible hepatic encephalopathy with elevated ammonia, today ammonia is normal. Rule out intracranial bleed -Obesity BMI 32.8 -Diabetes mellitus type 2, chronically on insulin -GERD -Hyperlipidemia -Essential hypertension -Dilated gallbladder. Denies any obvious abdominal symptoms. No Gr sign. No hydronephrosis or surgery team -Obstructive sleep apnea -Hiatal hernia -Chronic urinary stress incontinence Plan: This is a pleasant 80 years old female who presents with fall, possible pneumonia versus edema, cirrhosis of the liver versus hepatitis. Also patient with altered mental status today with normal ammonia. Rule out intracranial bleed. Patient continue on antibiotics, Zosyn. Discontinue of Lasix. Continue with lactulose. Continue with workup for cirrhosis per GI team. Case closely. Patient will need biopsy of the liver/lymph node/plug nodules. Hold Zocor Surgical team also pulmonary teams were consulted Labs and medication were reviewed.. Continue same treatment. Continue with symptomatic treatment. Resume home medication. Monitor lytes and vitals. DVT and GI prophylaxis. Further recommendationsas per clinical course of the pat ient DVT prophylaxis: High INR GI Prophylaxis: Ppi Prognosis is guarded Today I called the son Johann Case at [phone] and left a message to call back
--- NOTE | 2020-12-08 14:36 | P.PN ---
Subjective Progress Note Date: 12/08/20 Principal diagnosis: Elevated LFTs and jaundice The patient is seen and examined sitting up in the bedside chair. She states she is having some abdominal discomfort as well as had an episode of vomiting this morning. The patient underwent a MRI of the liver that showed significant heterogeneity throughout the liver could relate to multifocal infiltrative process such as lymphoma in this patient with also enlarged abdominal lymph nodes. Dilated gallbladder suggestive of cholecystitis. Pleural fluid and infiltrate at the lung base. Objective - Vital Signs Vital signs: Vital Signs Temp 97.4 F L 12/08/20 07:08 Pulse 78 12/08/20 07:08 Resp 18 12/08/20 07:45 BP 115/69 12/08/20 07:08 Pulse Ox 96 12/08/20 07:08 Intake & Output 12/07/20 12/08/20 12/08/20 18:59 06:59 18:59 Other: Voiding Method Toilet Toilet Toilet Incontinent Incontinent Incontinent # Voids 2 1 1 # Bowel Movements 2 1 - Exam General appearance: The patient is alert, orientedx3, appears in no acute distress. HET: Head is normocephalic and atraumatic. Conjunctiva pink. Sclera icteric. Neck: Supple without lymphadenopathy. Abdomen: Soft, mild tenderness, nondistended with bowel sounds. No guarding or rigidity. Extremities: Normal skin color and turgor. No pedal edema Skin: No rashes, jaundice Neurological: No focal deficits. Alert and oriented 3. - Labs CBC & Chem 7: 12/07/20 10:26 12/08/20 08:40 Labs: Abnormal Lab Results - Last 24 Hours (Table) 12/07/20 12/07/20 12/07/20 Range/Units 10:26 16:45 20:10 WBC 17.5 H (3.8-10.6) k/uL RBC 5.76 H (3.80-5.40) m/uL MCV 78.1 L (80.0-100.0) fL MCH 23.8 L (25.0-35.0) pg MCHC 30.5 L (31.0-37.0) g/dL RDW 17.5 H (11.5-15.5) % Plt Count 91 L (150-450) k/uL PT (9.0-12.0) sec INR (<1.2) Carbon Dioxide (22-30) mmol/L BUN (7-17) mg/dL Glucose (74-99) mg/dL POC Glucose (mg/dL) 121 H 164 H (75-99) mg/dL Total Bilirubin (0.2-1.3) mg/dL AST (14-36) U/L ALT (4-34) U/L Alkaline Phosphatase (38-126) U/L Albumin (3.5-5.0) g/dL 12/08/20 12/08/20 12/08/20 Range/Units 07:07 08:40 08:40 WBC (3.8-10.6) k/uL RBC (3.80-5.40) m/uL MCV (80.0-100.0) fL MCH (25.0-35.0) pg MCHC (31.0-37.0) g/dL RDW (11.5-15.5) % Plt Count (150-450) k/uL PT 26.3 H (9.0-12.0) sec INR 2.7 H (<1.2) Carbon Dioxide 21 L (22-30) mmol/L BUN 39 H (7-17) mg/dL Glucose 146 H (74-99) mg/dL POC Glucose (mg/dL) 128 H (75-99) mg/dL Total Bilirubin 7.1 H (0.2-1.3) mg/dL AST 562 H (14-36) U/L ALT 241 H (4-34) U/L Alkaline Phosphatase 273 H (38-126) U/L Albumin 2.7 L (3.5-5.0) g/dL 12/08/20 Range/Units 11:27 WBC (3.8-10.6) k/uL RBC (3.80-5.40) m/uL MCV (80.0-100.0) fL MCH (25.0-35.0) pg MCHC (31.0-37.0) g/dL RDW (11.5-15.5) % Plt Count (150-450) k/uL PT (9.0-12.0) sec INR (<1.2) Carbon Dioxide (22-30) mmol/L BUN (7-17) mg/dL Glucose (74-99) mg/dL POC Glucose (mg/dL) 121 H (75-99) mg/dL Total Bilirubin (0.2-1.3) mg/dL AST (14-36) U/L ALT (4-34) U/L Alkaline Phosphatase (38-126) U/L Albumin (3.5-5.0) g/dL Microbiology - Last 24 Hours (Table) 12/03/20 23:59 Blood Culture - Preliminary Blood No Growth after 96 hours 12/03/20 23:54 Blood Culture - Preliminary Blood No Growth after 96 hours Assessment and Plan (1) Transaminitis Narrative/Plan: This is a pleasant 72-year-old female with elevated liver function tests and jaundice who has no prior history of chronic liver disease. Currently patient has no abdominal pain nausea or vomiting. Ultrasound and CT scan showed nodular appearing liver consistent with liver cirrhosis. There is questionable history of fatty liver disease diagnosed before. Ultrasound of the gallbladder did not show any evidence of gallstones. However it appeared slightly distended with no biliary ductal dilation. The patient denies being on any new medications recently and no antibiotic use. He should also has evidence of mild coagulopathy secondary to underlying liver disease. She is not on any anticoagulation. Etiology of elevated LFTs remains unclear at this time, however likely related to nonalcoholic fatty liver. Full liver serology was ordered. Liver MRI ordered and reviewed. Oncology consulted for liver lesions and pulmonary nodules, awaiting their recommendations. Current Visit: Yes Status: Acute Code(s): R74.01 - ELEVATION OF LEVELS OF LIVER TRANSAMINASE LEVELS SNOMED Code(s): 613231157 (2) Confusion Narrative/Plan: Patient mildly confused, ammonia level is 50. Rule out hepatic encephalopathy. Lactulose started, will increase to 30 mL 3 times a day. Current Visit: Yes Status: Acute Code(s): R41.0 - DISORIENTATION, UNSPECIFIED SNOMED Code(s): 660191463 Plan: 1. Continue symptomatic and supportive care 2. Full liver serology ordered, negative to date other than elevated AFP 3. Hepatitis serologies ordered, negative 4. Continue to monitor daily CMP, ammonia level 5. Increase lactulose to 30 mL 2 times a day, titrate to have 3-4 bowel movements daily 6. MRI of the liver ordered and reviewed 7. Oncology on consult, await their commendations Thank you for this consultation, we will continue to follow. Dr. Jack I agree with the dictator's note, documented as a scribe by Berenice Mead.
--- NOTE | 2020-12-08 15:26 | CT ---
EXAMINATION TYPE: CT brain wo con DATE OF EXAM: 12/08/2020 COMPARISON: None HISTORY: Confusion, weakness and fatigue. CT DLP: 1217.[address] of the brain was performed. The ventricles, basal cisterns and sulci overlying the cerebral convexities demonstrate mild enlargem ent. There is no evidence for intracranial hemorrhage or sulcal effacement. There is decreased attenuation about the periventricular white matter and deep white matter of both c erebral hemispheres, compatible with chronic small vessel ischemia. Differential diagnosis does inclu de demyelination. No mass effects are seen.No midline shift. Osseous calvarium is intact. If symptoms persist consider MRI. IMPRESSION: 1. Age related atrophic and chronic small vessel ischemic change without acute intracranial process s een at this time.
[2020-12-08 16:22] LABS: HCT 44.7 % (37.2-46.3); HGB 13.9 g/dL (12.0-15.0); MCHC 31.1 g/dL (32.0-37.0); Platelet Count 98 X 10*3/uL (140-440); RBC 6.04 X 10*6/uL (4.10-5.20); RDW 20.1 % (11.5-14.5); WBC 23.33 X 10*3/uL (4.50-10.00)
[2020-12-08 17:05] LABS: Glucose,Whole Blood 90 mg/dL (75-99)
--- NOTE | 2020-12-08 18:01 | P.PN ---
Subjective Progress Note Date: 12/08/20 Principal diagnosis: Multiple pulmonary nodules This is a 80-year-old female with history of multiple medical problems including hypertension, dyslipidemia, fatty liver, breast cancer, urinary incontinence, bilateral mastectomy, type 2 diabetes, patient was admitted on 12/03/2020, mostly with symptoms of weakness. Patient was brought in by EMS, and apparently she has been complaining of weakness and poor appetite for the past week. The patient herself is a poor historian, could not get much information from the patient, and there wasn't much information in the chart to speak of. At any rate the patient was admitted, she was noted to have elevated liver enzymes. Leukocytosis. Elevated lactic acid of 7.4. Abnormal urinalysis consistent with UTI. Negative ECR for COVID-19 infection. Chest x-ray question bilateral infiltrates, not clear whether the infiltrates are truly pneumonic in nature or could be related to fluids or possibly even pulmonary fibrosis. Considering that clinical history is not suggestive of pneumonia, I did recommend a pro- calcitonin level, I also recommended a BNP level, a high-resolution CT of the chest, in the meantime the patient is on antibiotics for UTI, and presumptive pneumonia. On 12/06/2020 patient seen in follow-up on medical surgical floor, CT chest was completed last night showing diffuse innumerable multifocal opacities and small nodules of the bilateral lungs, small layering of the pleural effusions bilaterally, and the findings could represent infectious etiology although they are nonspecific. Patient is also breast cancer survivor 2 status post bilateral mastectomy, and there is a possibility of underlying malignancy as well. She appears to be nontoxic, appears to be breathing comfortably, no cough, she is on 2 L of oxygen and pulse ox is 92%, she has been afebrile, pro- calcitonin he has been ordered and is pending at this time, she has had no fever. Denied any chills, no chest pain, no hemoptysis, although her white blood cell count is elevated and at 18.19, hemoglobin is 12.3, electrolytes and renal profile are unremarkable, her proBNP was within normal limits, 3, her troponin admission was negative, her liver enzymes were elevated and they are improving on today's labs, GI service is following, and gallbladder ultrasound was completed showing heterogeneous lobular contour of the liver, patient's AFP marker was also elevated. Patient does have a history of fatty liver, nonalcoholic. She appears to be breathing comfortably On 12/07/2020 patient is down for MRI of the liver, and is not in the room at the time of our evaluation, however her daughter is at the bedside and we spoke to the daughter regarding the patient's condition today, there is no reported dyspnea, patient has remained on 2 L of oxygen, maintaining O2 saturations above 90%, she's been afebrile, hemodynamically she has been stable, no reported dyspnea, no cough, today's labs have been reviewed, white blood cell count 17.5, hemoglobin 13.7, sodium is 141, potassium is 3.7, chloride is 109, BUN 31, creatinine 0.91, AST is 274, ALT is 185, alk phos is 256, ammonia level is 18, pro-calcitonin level came back negative 2, and 0.22 and 0.23, ALEX screen was negative, COVID-19 was negative, COVID-19 antibiotic test was nonreactive, hepatitis panel was nonreactive. Patient was reevaluated today on 12/08/2020, patient is about the same, and today I had a chance to discuss with her daughter again my recommendation is the patient will likely need a liver biopsy to be done by interventional radiology. Patient is yet to be seen by oncology on consultation. If the patient gets to be discharged home, she will need a PET scan, and based on the PET scan findings decision whether the patient will need bronchoscopy and transbronchial biopsy, however I believe they healed would be rather low from bronchoscopy and transbronchial biopsy compared to direct liver biopsy of nodules noted in the liver. MRI of the liver questioned lymphoma involving the liver. And she was found to have significant abdominal adenopathy. Patient has elevated WBC count of 23.3 hemoglobin is 13.9. Liver enzymes are elevated including AST ALT and alkaline phosphatase. Ammonia level is down to 20. Objective - Vital Signs Vital signs: Vital Signs Temp 97.6 F 12/08/20 14:26 Pulse 71 12/08/20 14:26 Resp 16 12/08/20 14:26 BP 107/70 12/08/20 14:26 Pulse Ox 99 12/08/20 14:26 Intake & Output 12/07/20 12/08/20 12/08/20 18:59 06:59 18:59 Intake Total 720 Balance 720 Intake: Oral 720 Other: Voiding Method Toilet Toilet Toilet Incontinent Incontinent Incontinent # Voids 2 1 1 # Bowel Movements 2 1 1 - Exam Physical Exam: Revealed a 80-year-old female in no distress, she is on 2 L nasal cannula, and her O2 saturations 99%. Head: Atraumatic, normocephalic. HEENT:[Neck is supple.] [No neck masses.] [No thyromegaly.] [No JVD.] Extremely dry mucous membranes noted. PERRLA, EOMI, nonicteric. Chest: Symmetrical chest expansion, fine crackles at the bases especially at the right base. Cardiac Exam: [Normal S1 and S2, no S3 gallop, no murmur.] Abdomen: [Soft, nontender, no megaly, no rebound, no guarding, normal bowel sounds.] Extremities: [No clubbing, no edema, no cyanosis.] Skin is noted to be extremely dry. Neurological Exam: Awake,, seems to be more alert today, seems to be oriented 3 with her daughter at bedside, Psychiatric: Depressed mood, blunt affect, minimal confusion is noted. Skin: No rashes, she does have dry mucous membranes. Lymphatics: No lymphadenopathy. - Labs CBC & Chem 7: 12/08/20 08:40 12/08/20 08:40 Labs: Abnormal Lab Results - Last 24 Hours (Table) 12/07/20 12/08/20 12/08/20 Range/Units 20:10 07:07 08:40 WBC 23.33 H (4.50-10.00) X 10*3/uL RBC 6.04 H (4.10-5.20) X 10*6/uL MCV 74.0 L (80.0-97.0) fL MCH 23.0 L (27.0-32.0) pg MCHC 31.1 L (32.0-37.0) g/dL RDW 20.1 H (11.5-14.5) % Plt Count 98 L (140-440) X 10*3/uL Absolute Nucleated RBC 0.05 H (0.00-0.00) X 10*3/uL NRBC/100 WBC Diff 0.2 H (0.0-0.0) /100 WBCS PT (9.0-12.0) sec INR (<1.2) APTT (22.0-30.0) sec Carbon Dioxide (22-30) mmol/L BUN (7-17) mg/dL Glucose (74-99) mg/dL POC Glucose (mg/dL) 164 H 128 H (75-99) mg/dL Total Bilirubin (0.2-1.3) mg/dL AST (14-36) U/L ALT (4-34) U/L Alkaline Phosphatase (38-126) U/L Albumin (3.5-5.0) g/dL 12/08/20 12/08/20 12/08/20 Range/Units 08:40 08:40 08:40 WBC (4.50-10.00) X 10*3/uL RBC (4.10-5.20) X 10*6/uL MCV (80.0-97.0) fL MCH (27.0-32.0) pg MCHC (32.0-37.0) g/dL RDW (11.5-14.5) % Plt Count (140-440) X 10*3/uL Absolute Nucleated RBC (0.00-0.00) X 10*3/uL NRBC/100 WBC Diff (0.0-0.0) /100 WBCS PT 26.3 H (9.0-12.0) sec INR 2.7 H (<1.2) APTT 37.1 H (22.0-30.0) sec Carbon Dioxide 21 L (22-30) mmol/L BUN 39 H (7-17) mg/dL Glucose 146 H (74-99) mg/dL POC Glucose (mg/dL) (75-99) mg/dL Total Bilirubin 7.1 H (0.2-1.3) mg/dL AST 562 H (14-36) U/L ALT 241 H (4-34) U/L Alkaline Phosphatase 273 H (38-126) U/L Albumin 2.7 L (3.5-5.0) g/dL 12/08/20 Range/Units 11:27 WBC (4.50-10.00) X 10*3/uL RBC (4.10-5.20) X 10*6/uL MCV (80.0-97.0) fL MCH (27.0-32.0) pg MCHC (32.0-37.0) g/dL RDW (11.5-14.5) % Plt Count (140-440) X 10*3/uL Absolute Nucleated RBC (0.00-0.00) X 10*3/uL NRBC/100 WBC Diff (0.0-0.0) /100 WBCS PT (9.0-12.0) sec INR (<1.2) APTT (22.0-30.0) sec Carbon Dioxide (22-30) mmol/L BUN (7-17) mg/dL Glucose (74-99) mg/dL POC Glucose (mg/dL) 121 H (75-99) mg/dL Total Bilirubin (0.2-1.3) mg/dL AST (14-36) U/L ALT (4-34) U/L Alkaline Phosphatase (38-126) U/L Albumin (3.5-5.0) g/dL Microbiology - Last 24 Hours (Table) 12/03/20 23:59 Blood Culture - Preliminary Blood No Growth after 96 hours 12/03/20 23:54 Blood Culture - Preliminary Blood No Growth after 96 hours Assessment and Plan Assessment: Impression: Multiple reticular nodular infiltrates/pulmonary nodules, highly suspicious for malignancy, strongly doubt infection. Patient remains empirically on Zosyn again my clinical index of suspicion for pneumonia is rather low. Elevated alpha-fetoprotein and liver enzymes. With abnormal MRI of the liver again the digestive of malignancy however the radiologist is entertaining possible lymphoma. Benign essential hypertension. Acute metabolic encephalopathy with elevated ammonia level on presentation. Type 2 diabetes. Possible urinary tract infection. Chronic urinary stress incontinence. Recommendation: Patient is to be seen by oncology My recommendation is to recommend liver biopsy by interventional radiology. PET scan on outpatient basis. However reviewed the notes from the oncology staff, and seems to be recommending referral to a tertiary care center for tissue diagnosis. We'll sign off and see the patient on when necessary basis. Time with Patient: Less than 30
[2020-12-08] MEDS ORDERED: PHYTONADIONE ORAL 5 MG/5 ML ORAL.SYRG PO STA (20:41)
[2020-12-08 20:44] LABS: Glucose,Whole Blood 61 mg/dL (75-99)
[2020-12-08 21:14] LABS: Glucose,Whole Blood 61 mg/dL (75-99)
[2020-12-08] MEDS: INSULIN DETEMIR (LEVEMIR) 100 UNIT/ML SYR SQ SCH (21:31)
[2020-12-08 22:37] LABS: Glucose,Whole Blood 136 mg/dL (75-99)
[2020-12-09] MEDS: DEXTROSE 50% SYRINGE 50 ML IVP ONE ×2 (00:26→00:45)
[2020-12-09 00:31] LABS: Glucose,Whole Blood 43 mg/dL (75-99)
[2020-12-09] MEDS ORDERED: DEXTROSE 50% SYRINGE 50 ML IVP ONE ×4 (00:39→01:32)
[2020-12-09 00:40] LABS: Glucose,Whole Blood 48 mg/dL (75-99)
[2020-12-09 00:49] LABS: Glucose,Whole Blood 45 mg/dL (75-99)
[2020-12-09 00:50] LABS: Glucose,Whole Blood 50 mg/dL (75-99)
[2020-12-09 01:07] LABS: Glucose,Whole Blood 70 mg/dL (75-99)
[2020-12-09 01:19] LABS: Glucose,Whole Blood 65 mg/dL (75-99)
--- NOTE | 2020-12-09 01:20 | P.EN ---
A team note Activated at 12:15 am. Arrived on the scene shortly after. Discussed the case with the RN and reviewed the chart. The patient was admitted for pneumonia and elevated ammonia with hepatic encephalopathy was last seen at 10 PM when she was assisted into the bathroom. The patient was subsequent found by the RN to be minimally responsive in bed. At time of evaluation, the patient's BP was 106/92, pulse ox could not be obtained, rectal temp 94. General: Elderly female staring into space, appears stated age, obese HEENT: NC/AT, anicteric sclerae, moist conjunctiva, no lid-lag, pupils 4 mm and reactive to light and early Cardiovascular: S1/S2 wnl, no murmurs, rubs, or gallops Lungs: Clear to auscultation, normal respiratory effort, no accessory muscle use Abdominal: Soft, non-tender, no guarding, rebound, or rigidity, fluid thrill noted Skin: Warm, dry Extremities: Trace bilateral lower extremity edema, no contractures Psychiatric: Sporadically making eye contact but otherwise minimally responsive with withdrawing to noxious stimuli Neuro: Unable to perform, moving all extremities Altered mental status, suspected secondary to hypoglycemia, possibly due to liver disease with metastases -Capillary blood glucose at the bedside was 43. No insulin was given earlier in the night with last insulin dose greater than 24 hours ago. One ampule of D50 was given with subsequent blood glucose 48. 2 additional ampules were given. D10 drip was ordered and the patient was transferred to medical ICU with every hour blood glucose testing. Primary and the intensivists were notified by the RN. Repeat ammonia levels ordered. ABG was ordered. BMP and lactate levels were also ordered.
[2020-12-09 01:36] LABS: Glucose,Whole Blood 72 mg/dL (75-99)
[2020-12-09] MEDS ORDERED: NOREPINEPHRIN 4 MG-0.9% NS PMX 4 MG/250 ML ML IV ONE (01:44)
[2020-12-09] MEDS: DEXTROSE 10% IN WATER 500 ML in EMPTY BAG 1 BAG IV SCH ×2 (01:45→09:01)
[2020-12-09] MEDS: NOREPINEPHRINE 4 MG in SODIUM CHLORIDE 0.9% 250 ML IV SCH ×3 (01:45→06:59)
[2020-12-09 01:59] VITALS: TEMP 94
[2020-12-09 02:05] LABS: Glucose,Whole Blood 76 mg/dL (75-99)
[2020-12-09 02:11] LABS: Glucose,Whole Blood 91 mg/dL (75-99)
[2020-12-09] MEDS ORDERED: HYDROCORTISONE SUCCINATE 100 MG/2 ML VIAL IV STA (02:24)
--- NOTE | 2020-12-09 02:30 | XR ---
EXAM: XR Chest, 1 View CLINICAL HISTORY: ITS.REASON XR Reason: endotracheal tube placement TECHNIQUE: Frontal view of the chest. COMPARISON: 12/05/2020 FINDINGS: Endotracheal tube terminates 2.8 cm above the level of the darrin. Nasogastric tube terminates below [id number] on the left upper quadrant. Unchanged appearance of diffuse bilateral perihilar reticular opacities and bibasilar consolidations. Blunting of the bilateral costophrenic angles consistent with small bilateral pleural effusions. No pneumothorax. Unchanged cardiac contour and mediastinal silhouette. IMPRESSION: Endotracheal tube terminates 2.8 cm above the level of the darrin.
[2020-12-09 02:42] LABS: Glucose,Whole Blood 128 mg/dL (75-99)
[2020-12-09 02:52] LABS: Glucose,Whole Blood 142 mg/dL (75-99)
[2020-12-09 03:14] LABS: ABG Base Excess -28.3 mmol/L; ABG Oxygen Saturation 98.3 % (94-97); ABG PCO2 41 mmHg (35-45); ABG PO2 274 mmHg (83-108); ABG TCO2 8 mmol/L (19-24); Allen Test Performed? Yes
[2020-12-09 03:18] LABS: ABG PH <6.80 (7.35-7.45)
[2020-12-09 03:19] LABS: ABG HCO3 6 mmol/L (21-25)
[2020-12-09] MEDS ORDERED: SODIUM BICARB 8.4% 50 ML SYR (1 MEQ/ML) IV STA ×3 (03:28→08:57)
[2020-12-09] MEDS ORDERED: DEXTROSE 5% IN WATER 1,000 ML with SODIUM BICARB (1 MEQ/ML) 150 ML IV SCH (03:30)
[2020-12-09] MEDS ORDERED: SODIUM CHLORIDE 0.9% 150 ML with VASOPRESSIN 60 UNIT IV SCH ×2 (03:30)
[2020-12-09 03:31] LABS: Glucose,Whole Blood 127 mg/dL (75-99)
[2020-12-09 04:10] LABS: Lactic Acid, Venous 11.1 mmol/L (0.7-2.0)
[2020-12-09 04:17] LABS: Glucose,Whole Blood 202 mg/dL (75-99)
[2020-12-09 04:26] VITALS: BP 58/20
[2020-12-09 04:44] LABS: ALT 128 U/L (4-34); AST 532 U/L (14-36); African American GFR (CKD) 67 (>60 ml/min/1.73 sqM); Albumin <1.0 g/dL (3.5-5.0); Albumin/Globulin Ratio <0.0; Alkaline Phosphatase 61 U/L (38-126); Blood Urea Nitrogen 20 mg/dL (7-17); Chloride 128 mmol/L (98-107); Globulin <1.5 g/dL; Glucose 101 mg/dL (74-99); Magnesium 1.3 mg/dL (1.6-2.3); Non-African American GFR(CKD) 58 (>60 ml/min/1.73 sqM); Sodium 144 mmol/L (137-145); Total Bilirubin 2.3 mg/dL (0.2-1.3); Total Protein 2.5 g/dL (6.3-8.2)
[2020-12-09 04:47] LABS: Anisocytosis Slight; HCT 45.7 % (34.0-46.0); HGB 11.7 gm/dL (11.4-16.0); Hypochromasia Marked; MCH 22.9 pg (25.0-35.0); MCHC 25.7 g/dL (31.0-37.0); Mean Platelet Volume 12.5; RBC 5.12 m/uL (3.80-5.40); RDW 17.7 % (11.5-15.5); WBC 19.8 k/uL (3.8-10.6)
[2020-12-09 05:06] LABS: Potassium 2.6 mmol/L (3.5-5.1)
[2020-12-09 05:07] LABS: Calcium 3.9 mg/dL (8.4-10.2); Carbon Dioxide <5 mmol/L (22-30)
[2020-12-09 05:20] LABS: MCV 89.2 fL (80.0-100.0)
[2020-12-09 05:21] LABS: Platelet Count 50 k/uL (150-450)
[2020-12-09 05:23] LABS: D-Dimer >34.10 mg/L FEU (<0.60); Prothrombin Time 86.9 sec (9.0-12.0)
[2020-12-09 05:26] LABS: INR 8.9 (<1.2); Partial Thromboplastin Time >200.0 sec (22.0-30.0)
[2020-12-09 05:29] LABS: Glucose,Whole Blood 77 mg/dL (75-99)
[2020-12-09] MEDS ORDERED: Potassium Replacement Protocol 1 EACH MISC MISCELLANE PRN (06:12)
[2020-12-09] MEDS ORDERED: Magnesium Replacement Protocol 1 EACH MISC MISCELLANE PRN (06:12)
[2020-12-09 06:13] LABS: ABG Base Excess -27.9 mmol/L; ABG PCO2 41 mmHg (35-45); ABG PO2 110 mmHg (83-108); ABG TCO2 8 mmol/L (19-24); Allen Test Performed? Yes
[2020-12-09 06:16] LABS: Band Neutrophils % 2 %; Monocytes # (M) 1.19 k/uL (0-1.0); Neutrophils % (M) 90 %; Nucleated Red Blood Cells 0 /100 WBC (0-0); Total Cells Counted 100
[2020-12-09 06:18] LABS: ABG HCO3 7 mmol/L (21-25); ABG PH 6.81 (7.35-7.45)
[2020-12-09 06:19] LABS: Crenated RBC Present; Ovalocytes Present; Poikilocytosis (M) Present; Target Cells Present
[2020-12-09 06:20] LABS: RBC Fragments Present
[2020-12-09 06:52] LABS: Glucose,Whole Blood 256 mg/dL (75-99)
[2020-12-09] MEDS: MAGNESIUM SULFATE-D5W PMX 1 GM in DEXTROSE/WATER 1 100ML.BAG IVPB SCH ×2 (06:59→08:28)
[2020-12-09] MEDS: POTASSIUM CHLORIDE 10 MEQ in WATER FOR INJECTION 1 100ML.BAG IVPB SCH ×2 (06:59→08:28)
[2020-12-09 07:17] VITALS: PULSE 77; RESP 20
[2020-12-09] MEDS ORDERED: CISATRACURIUM 2 MG/ML 5 ML VIAL IV ONE (07:32)
[2020-12-09] MEDS ORDERED: VANCOMYCIN IV PER PHARMACY 1 EACH MISC MISCELLANE PRN (07:56)
[2020-12-09] MEDS ORDERED: NOREPINEPHRINE 32 MG in SODIUM CHLORIDE 0.9% 218 ML IV SCH (08:00)
[2020-12-09] MEDS ORDERED: SODIUM CHLORIDE 0.9% 1,000 ML IV ONE ×2 (08:00→08:31)
[2020-12-09] MEDS ORDERED: SODIUM CHLORIDE 0.9% 1,000 ML IV SCH (08:00)
[2020-12-09 08:04] LABS: Glucose,Whole Blood 306 mg/dL (75-99)
[2020-12-09 08:05] LABS: ABG Base Excess -26.2 mmol/L; ABG Oxygen Saturation 88.2 % (94-97); ABG PCO2 49 mmHg (35-45); ABG PO2 87 mmHg (83-108); ABG TCO2 10 mmol/L (19-24)
[2020-12-09 08:10] LABS: ABG HCO3 8 mmol/L (21-25); ABG PH 6.82 (7.35-7.45)
[2020-12-09] MEDS ORDERED: SODIUM BICARB 8.4% 50 ML SYR (1 MEQ/ML) ONE (08:19)
--- NOTE | 2020-12-09 08:35 | XR ---
EXAMINATION TYPE: XR chest 1V portable DATE OF EXAM: 12/09/2020 COMPARISON: Chest x-ray 12/09/2020 HISTORY: Status post central venous catheter placement TECHNIQUE: Single frontal view of the chest is obtained. FINDINGS: There is been interval placement of a left subclavian central venous catheter, distal tip overlying the superior vena cava. No evident pneumothorax or pleural effusion. Bilateral airspace dis ease appears more confluent. IMPRESSION: No evident complication status post central venous catheter placement. Findings suggest worsening pneumonia.
[2020-12-09] MEDS ORDERED: PANTOPRAZOLE 40 MG/10 ML VIAL IVP SCH (09:00)
[2020-12-09] MEDS ORDERED: POTASSIUM CHLORIDE 20 MEQ in WATER FOR INJECTION 1 100ML.BAG IVPB SCH (09:30)
[2020-12-09 10:18] LABS: % Iron Saturation 9.56 (12.00-45.00); ALT 269 U/L (8-44); AST 531 U/L (13-35); African American GFR (CKD) 50.1 (60.0-200.0); Albumin/Globulin Ratio 0.64 (1.60-3.17); Alkaline Phosphatase 261 U/L (41-126); BUN/Creat Ratio 35.83 Ratio (12.00-20.00); Calcium 9.8 mg/dL (8.7-10.3); Chloride 110 mmol/L (96-109); Ferritin 128.6 ng/mL (10.0-291.0); Folate, Serum 23.3 ng/mL; Globulin 4.2 g/dL (1.6-3.3); Glucose 147 mg/dL (70-110); Iron 28 ug/dL (50-170); LDH 684 U/L (120-246); Magnesium 2.4 mg/dL (1.5-2.4); Non-African American GFR(CKD) 43.3 (60.0-200.0); Potassium 3.8 mmol/L (3.5-5.5); Sodium 148 mmol/L (135-145); Total Bilirubin 6.3 mg/dL (0.2-1.2); Total Iron Binding Capacity 293 ug/dL (228-460); Total Protein 6.9 g/dL (6.2-8.2)
[2020-12-09 10:46] LABS: Vitamin B12 >4000.0 pg/mL (211-911)
[2020-12-09 10:48] LABS: Cancer Antigen 153 22.9 U/mL (0.0-32.3)
[2020-12-09] MEDS ORDERED: VANCOMYCIN 2,000 MG in SODIUM CHLORIDE 0.9% 500 ML 500 ML IVPB ONE (11:00)
--- NOTE | 2020-12-09 11:02 | P.PN ---
Subjective Progress Note Date: 12/09/20 Principal diagnosis: Multiple pulmonary nodules This is a 80-year-old female with history of multiple medical problems including hypertension, dyslipidemia, fatty liver, breast cancer, urinary incontinence, bilateral mastectomy, type 2 diabetes, patient was admitted on 12/03/2020, mostly with symptoms of weakness. Patient was brought in by EMS, and apparently she has been complaining of weakness and poor appetite for the past week. The patient herself is a poor historian, could not get much information from the patient, and there wasn't much information in the chart to speak of. At any rate the patient was admitted, she was noted to have elevated liver enzymes. Leukocytosis. Elevated lactic acid of 7.4. Abnormal urinalysis consistent with UTI. Negative ECR for COVID-19 infection. Chest x-ray question bilateral infiltrates, not clear whether the infiltrates are truly pneumonic in nature or could be related to fluids or possibly even pulmonary fibrosis. Considering that clinical history is not suggestive of pneumonia, I did recommend a pro- calcitonin level, I also recommended a BNP level, a high-resolution CT of the chest, in the meantime the patient is on antibiotics for UTI, and presumptive pneumonia. On 12/06/2020 patient seen in follow-up on medical surgical floor, CT chest was completed last night showing diffuse innumerable multifocal opacities and small nodules of the bilateral lungs, small layering of the pleural effusions bilaterally, and the findings could represent infectious etiology although they are nonspecific. Patient is also breast cancer survivor 2 status post bilateral mastectomy, and there is a possibility of underlying malignancy as well. She appears to be nontoxic, appears to be breathing comfortably, no cough, she is on 2 L of oxygen and pulse ox is 92%, she has been afebrile, pro- calcitonin he has been ordered and is pending at this time, she has had no fever. Denied any chills, no chest pain, no hemoptysis, although her white blood cell count is elevated and at 18.19, hemoglobin is 12.3, electrolytes and renal profile are unremarkable, her proBNP was within normal limits, 3, her troponin admission was negative, her liver enzymes were elevated and they are improving on today's labs, GI service is following, and gallbladder ultrasound was completed showing heterogeneous lobular contour of the liver, patient's AFP marker was also elevated. Patient does have a history of fatty liver, nonalcoholic. She appears to be breathing comfortably On 12/07/2020 patient is down for MRI of the liver, and is not in the room at the time of our evaluation, however her daughter is at the bedside and we spoke to the daughter regarding the patient's condition today, there is no reported dyspnea, patient has remained on 2 L of oxygen, maintaining O2 saturations above 90%, she's been afebrile, hemodynamically she has been stable, no reported dyspnea, no cough, today's labs have been reviewed, white blood cell count 17.5, hemoglobin 13.7, sodium is 141, potassium is 3.7, chloride is 109, BUN 31, creatinine 0.91, AST is 274, ALT is 185, alk phos is 256, ammonia level is 18, pro-calcitonin level came back negative 2, and 0.22 and 0.23, ALEX screen was negative, COVID-19 was negative, COVID-19 antibiotic test was nonreactive, hepatitis panel was nonreactive. Patient was reevaluated today on 12/08/2020, patient is about the same, and today I had a chance to discuss with her daughter again my recommendation is the patient will likely need a liver biopsy to be done by interventional radiology. Patient is yet to be seen by oncology on consultation. If the patient gets to be discharged home, she will need a PET scan, and based on the PET scan findings decision whether the patient will need bronchoscopy and transbronchial biopsy, however I believe they healed would be rather low from bronchoscopy and transbronchial biopsy compared to direct liver biopsy of nodules noted in the liver. MRI of the liver questioned lymphoma involving the liver. And she was found to have significant abdominal adenopathy. Patient has elevated WBC count of 23.3 hemoglobin is 13.9. Liver enzymes are elevated including AST ALT and alkaline phosphatase. Ammonia level is down to 20. Patient was reevaluated today on 12/09/2020, around 12:15 AM, the a team was called on this patient, patient was found by the nurse, minimally responsive in the bed. Patient was seen by the physician in house, the pressure was 106/92, pulse ox could not be obtained, patient was hypothermic with a temp of 94. Patient was also noted to be hypoglycemic, blood sugar was 43, hence she received 1 amp of D50, and follow-up Accu-Chek was 48. 2 additional ampules of D50 were given. Patient was given D10 drip, and she was transferred to the intensive care unit. I was called about this patient after she arrived to the ICU, and apparently her labs including elevated PT, elevated PTT, low platelets, elevated d-dimer, all pointed to patient going into disseminated intravascular coagulation. Patient was noted to be bleeding from her orogastric tube, and patient was intubated upon arrival to the ICU. Her ABG reflected significant metabolic acidosis, she was hypotensive, patient was started on vasopressin, norepinephrine, and she was given bicarb drip, given fluid boluses, blood pressure remains marginal. I came in this morning, placed a left subclavian central line and the patient, discussed her condition with the daughter before placement of the left subclavian central line, and explained to the daughter that her mother is doing extremely poorly, and she will most likely not survive her DIC picture. Initiated a stat consultation with hematology, and I ordered cryoprecipitate, I also ordered fresh frozen plasma, given the patient more fluid boluses for low blood pressure, and in spite of all of this, the patient continued to go downhill, family arrived, change the CODE STATUS to DO NOT RESUSCITATE, and shortly after her daughter arrived, patient passed peacefully and comfortably. No CPR was performed because the CODE STATUS was changed to DO NOT RESUSCITATE. Looking at the labs, her ABG showed a pO2 of 110 pCO2 41 pH of 6.815 revision less than 70. ETT was over 200 PT was 86.9 with INR of 8.9 d- dimer was 54.10 patient had fragmented RBCs in the differential, obviously this is a classic DIC picture. Of course the trigger factor for her DIC is in her case most likely underlying malignancy although the possibility of infection is not entirely ruled out, patient has been on Zosyn all along, and I went ahead and ordered vancomycin before the CODE STATUS was changed to DO NOT RESUSCITATE. Chest x-ray showed bilateral airspace disease, suspect noncardiogenic pulmonary edema./ARDS. Objective - Vital Signs Vital signs: Vital Signs Temp 94.0 F L 12/09/20 01:08 Pulse 77 12/09/20 07:15 Resp 20 12/09/20 07:15 BP 58/20 12/09/20 03:45 Pulse Ox 41 L 12/09/20 07:15 Intake & Output 12/08/20 12/09/20 12/09/20 18:59 06:59 18:59 Intake Total 720 2225.326 2507 Output Total 0 400 Balance 720 1448.000 894 Intake: IV 940 350 .9NS 640 Dextrose 5% in Water 1, 300 150 000 ml @ 150 mls/hr IV . Q7H40M ELSA with Sodium Bicarb (1 Meq/ml) 150 ml Rx#:[id number] Magnesium Sulfate-D5w Pmx 100 1 gm In Dextrose/Water 1 100ml.bag @ 100 mls/hr IVPB Q1H [facility] Rx#: [id number] Potassium Chloride 10 meq 100 In Water For Injection 1 100ml.bag @ 100 mls/hr IVPB Q1HR [facility] Rx#: [id number] Intake, IV Titration 508.000 Amount Norepinephrine 4 mg In 508.000 Sodium Chloride 0.9% 250 ml @ 0.05 MCG/KG/MIN 18. 664 mls/hr IV .[id number] [facility] Rx#:[id number] Oral 720 Blood Product 944 Ffp 24 Cpd Unit 0 [id number] Ffp 24 Cpd Unit 322 [id number] Ffp 24 Cpd Unit 307 [id number] Pooled Cryoprecipitate 97 Unit [id number] Pooled Cryoprecipitate 117 Unit [id number] Pooled Cryoprecipitate 101 Unit [id number] Output: Gastric Drainage 400 Urine 0 0 Other: Voiding Method Toilet Toilet Incontinent Incontinent # Voids 1 1 # Bowel Movements 1 ABP, PAP, CO, CI - Last Documented Arterial Blood Pressure 72/39 - Exam Physical Exam: Revealed a 80-year-old female intubated, mechanically ventilated, looks pale, mottled, and multiple areas of ecchymosis and petechiae noted all over the body. Head: Atraumatic, normocephalic. HEENT:[Neck is supple.] [No neck masses.] Endotracheal tube and orogastric tube are intact. Chest: Symmetrical chest expansion, crackles and rhonchi noted bilaterally. Cardiac Exam: [Normal S1 and S2, no S3 gallop, no murmur.] Abdomen: [Soft, nontender, no megaly, no rebound, no guarding, normal bowel sounds. Bilateral areas of ecchymosis and bruising noted throughout the whole abdomen, surgical scars, noted in the abdominal wall. Extremities: Extremely poor distal pulses bilaterally. Feet are cold, and mottled. Neurological Exam: Sedated and paralyzed, on mechanical ventilation could not assess. Skin: As noted above. - Labs CBC & Chem 7: 12/09/20 03:00 12/09/20 03:00 Labs: Abnormal Lab Results - Last 24 Hours (Table) 12/08/20 12/08/20 12/08/20 Range/Units 08:40 08:40 08:40 WBC 23.33 H (4.50-10.00) X 10*3/uL RBC 6.04 H (4.10-5.20) X 10*6/uL MCV 74.0 L (80.0-97.0) fL MCH 23.0 L (27.0-32.0) pg MCHC 31.1 L (32.0-37.0) g/dL RDW 20.1 H (11.5-14.5) % Plt Count 98 L (140-440) X 10*3/uL Absolute Nucleated RBC 0.05 H (0.00-0.00) X 10*3/uL Neutrophils # (Manual) (1.3-7.7) k/uL Lymphocytes # (Manual) (1.0-4.8) k/uL Monocytes # (Manual) (0-1.0) k/uL NRBC/100 WBC Diff 0.2 H (0.0-0.0) /100 WBCS PT 26.3 H (9.0-12.0) sec INR 2.7 H (<1.2) APTT (22.0-30.0) sec Fibrinogen (200-500) mg/dL D-Dimer (<0.60) mg/L FEU ABG pH (7.35-7.45) ABG pCO2 (35-45) mmHg ABG pO2 (83-108) mmHg ABG HCO3 (21-25) mmol/L ABG Total CO2 (19-24) mmol/L ABG O2 Saturation (94-97) % Sodium (135-145) mmol/L Potassium (3.5-5.1) mmol/L Chloride (96-109) mmol/L Carbon Dioxide (21.6-31.8) mmol/L Anion Gap (4.00-12.00) mmol/L BUN (9.0-27.0) mg/dL Est GFR (CKD-EPI)NonAf (60.0-200.0) BUN/Creatinine Ratio (12.00-20.00) Ratio Glucose (70-110) mg/dL POC Glucose (mg/dL) (75-99) mg/dL Plasma Lactic Acid Eduin (0.7-2.0) mmol/L Calcium (8.4-10.2) mg/dL Magnesium (1.6-2.3) mg/dL Iron (50-170) ug/dL % Saturation (12.00-45.00) Total Bilirubin (0.2-1.2) mg/dL AST (13-35) U/L ALT (8-44) U/L Alkaline Phosphatase (41-126) U/L Ammonia (<30) umol/L Lactate Dehydrogenase (120-246) U/L Total Protein (6.3-8.2) g/dL Albumin (3.80-4.90) g/dL Globulin (1.6-3.3) g/dL Albumin/Globulin Ratio (1.60-3.17) g/dL CA 27-29 (0.0-38.5) U/mL Vitamin B12 (211-911) pg/mL Procalcitonin 0.47 H (0.02-0.09) ng/mL 12/08/20 12/08/20 12/08/20 Range/Units 08:40 08:40 11:27 WBC (4.50-10.00) X 10*3/uL RBC (4.10-5.20) X 10*6/uL MCV (80.0-97.0) fL MCH (27.0-32.0) pg MCHC (32.0-37.0) g/dL RDW (11.5-14.5) % Plt Count (140-440) X 10*3/uL Absolute Nucleated RBC (0.00-0.00) X 10*3/uL Neutrophils # (Manual) (1.3-7.7) k/uL Lymphocytes # (Manual) (1.0-4.8) k/uL Monocytes # (Manual) (0-1.0) k/uL NRBC/100 WBC Diff (0.0-0.0) /100 WBCS PT (9.0-12.0) sec INR (<1.2) APTT 37.1 H (22.0-30.0) sec Fibrinogen (200-500) mg/dL D-Dimer (<0.60) mg/L FEU ABG pH (7.35-7.45) ABG pCO2 (35-45) mmHg ABG pO2 (83-108) mmHg ABG HCO3 (21-25) mmol/L ABG Total CO2 (19-24) mmol/L ABG O2 Saturation (94-97) % Sodium 148 H (135-145) mmol/L Potassium (3.5-5.1) mmol/L Chloride 110 H (96-109) mmol/L Carbon Dioxide 16.0 L (21.6-31.8) mmol/L Anion Gap 22.00 H (4.00-12.00) mmol/L BUN 43.0 H (9.0-27.0) mg/dL Est GFR (CKD-EPI)NonAf 43.3 L (60.0-200.0) BUN/Creatinine Ratio 35.83 H (12.00-20.00) Ratio Glucose 147 H (70-110) mg/dL POC Glucose (mg/dL) 121 H (75-99) mg/dL Plasma Lactic Acid Eduin (0.7-2.0) mmol/L Calcium (8.4-10.2) mg/dL Magnesium (1.6-2.3) mg/dL Iron 28 L (50-170) ug/dL % Saturation 9.56 L (12.00-45.00) Total Bilirubin 6.3 H (0.2-1.2) mg/dL AST 531 H (13-35) U/L ALT 269 H (8-44) U/L Alkaline Phosphatase 261 H (41-126) U/L Ammonia (<30) umol/L Lactate Dehydrogenase 684 H (120-246) U/L Total Protein (6.3-8.2) g/dL Albumin 2.70 L (3.80-4.90) g/dL Globulin 4.2 H (1.6-3.3) g/dL Albumin/Globulin Ratio 0.64 L (1.60-3.17) g/dL CA 27-29 (0.0-38.5) U/mL Vitamin B12 >4000.0 H (211-911) pg/mL Procalcitonin (0.02-0.09) ng/mL 12/08/20 12/08/20 12/08/20 Range/Units 20:43 21:12 22:35 WBC (4.50-10.00) X 10*3/uL RBC (4.10-5.20) X 10*6/uL MCV (80.0-97.0) fL MCH (27.0-32.0) pg MCHC (32.0-37.0) g/dL RDW (11.5-14.5) % Plt Count (140-440) X 10*3/uL Absolute Nucleated RBC (0.00-0.00) X 10*3/uL Neutrophils # (Manual) (1.3-7.7) k/uL Lymphocytes # (Manual) (1.0-4.8) k/uL Monocytes # (Manual) (0-1.0) k/uL NRBC/100 WBC Diff (0.0-0.0) /100 WBCS PT (9.0-12.0) sec INR (<1.2) APTT (22.0-30.0) sec Fibrinogen (200-500) mg/dL D-Dimer (<0.60) mg/L FEU ABG pH (7.35-7.45) ABG pCO2 (35-45) mmHg ABG pO2 (83-108) mmHg ABG HCO3 (21-25) mmol/L ABG Total CO2 (19-24) mmol/L ABG O2 Saturation (94-97) % Sodium (135-145) mmol/L Potassium (3.5-5.1) mmol/L Chloride (96-109) mmol/L Carbon Dioxide (21.6-31.8) mmol/L Anion Gap (4.00-12.00) mmol/L BUN (9.0-27.0) mg/dL Est GFR (CKD-EPI)NonAf (60.0-200.0) BUN/Creatinine Ratio (12.00-20.00) Ratio Glucose (70-110) mg/dL POC Glucose (mg/dL) 61 L 61 L 136 H (75-99) mg/dL Plasma Lactic Acid Eduin (0.7-2.0) mmol/L Calcium (8.4-10.2) mg/dL Magnesium (1.6-2.3) mg/dL Iron (50-170) ug/dL % Saturation (12.00-45.00) Total Bilirubin (0.2-1.2) mg/dL AST (13-35) U/L ALT (8-44) U/L Alkaline Phosphatase (41-126) U/L Ammonia (<30) umol/L Lactate Dehydrogenase (120-246) U/L Total Protein (6.3-8.2) g/dL Albumin (3.80-4.90) g/dL Globulin (1.6-3.3) g/dL Albumin/Globulin Ratio (1.60-3.17) g/dL CA 27-29 (0.0-38.5) U/mL Vitamin B12 (211-911) pg/mL Procalcitonin (0.02-0.09) ng/mL 12/09/20 12/09/20 12/09/20 Range/Units 00:22 00:38 00:47 WBC (4.50-10.00) X 10*3/uL RBC (4.10-5.20) X 10*6/uL MCV (80.0-97.0) fL MCH (27.0-32.0) pg MCHC (32.0-37.0) g/dL RDW (11.5-14.5) % Plt Count (140-440) X 10*3/uL Absolute Nucleated RBC (0.00-0.00) X 10*3/uL Neutrophils # (Manual) (1.3-7.7) k/uL Lymphocytes # (Manual) (1.0-4.8) k/uL Monocytes # (Manual) (0-1.0) k/uL NRBC/100 WBC Diff (0.0-0.0) /100 WBCS PT (9.0-12.0) sec INR (<1.2) APTT (22.0-30.0) sec Fibrinogen (200-500) mg/dL D-Dimer (<0.60) mg/L FEU ABG pH (7.35-7.45) ABG pCO2 (35-45) mmHg ABG pO2 (83-108) mmHg ABG HCO3 (21-25) mmol/L ABG Total CO2 (19-24) mmol/L ABG O2 Saturation (94-97) % Sodium (135-145) mmol/L Potassium (3.5-5.1) mmol/L Chloride (96-109) mmol/L Carbon Dioxide (21.6-31.8) mmol/L Anion Gap (4.00-12.00) mmol/L BUN (9.0-27.0) mg/dL Est GFR (CKD-EPI)NonAf (60.0-200.0) BUN/Creatinine Ratio (12.00-20.00) Ratio Glucose (70-110) mg/dL POC Glucose (mg/dL) 43 L 48 L 45 L (75-99) mg/dL Plasma Lactic Acid Eduin (0.7-2.0) mmol/L Calcium (8.4-10.2) mg/dL Magnesium (1.6-2.3) mg/dL Iron (50-170) ug/dL % Saturation (12.00-45.00) Total Bilirubin (0.2-1.2) mg/dL AST (13-35) U/L ALT (8-44) U/L Alkaline Phosphatase (41-126) U/L Ammonia (<30) umol/L Lactate Dehydrogenase (120-246) U/L Total Protein (6.3-8.2) g/dL Albumin (3.80-4.90) g/dL Globulin (1.6-3.3) g/dL Albumin/Globulin Ratio (1.60-3.17) g/dL CA 27-29 (0.0-38.5) U/mL Vitamin B12 (211-911) pg/mL Procalcitonin (0.02-0.09) ng/mL 12/09/20 12/09/20 12/09/20 Range/Units 00:49 01:05 01:17 WBC (4.50-10.00) X 10*3/uL RBC (4.10-5.20) X 10*6/uL MCV (80.0-97.0) fL MCH (27.0-32.0) pg MCHC (32.0-37.0) g/dL RDW (11.5-14.5) % Plt Count (140-440) X 10*3/uL Absolute Nucleated RBC (0.00-0.00) X 10*3/uL Neutrophils # (Manual) (1.3-7.7) k/uL Lymphocytes # (Manual) (1.0-4.8) k/uL Monocytes # (Manual) (0-1.0) k/uL NRBC/100 WBC Diff (0.0-0.0) /100 WBCS PT (9.0-12.0) sec INR (<1.2) APTT (22.0-30.0) sec Fibrinogen (200-500) mg/dL D-Dimer (<0.60) mg/L FEU ABG pH (7.35-7.45) ABG pCO2 (35-45) mmHg ABG pO2 (83-108) mmHg ABG HCO3 (21-25) mmol/L ABG Total CO2 (19-24) mmol/L ABG O2 Saturation (94-97) % Sodium (135-145) mmol/L Potassium (3.5-5.1) mmol/L Chloride (96-109) mmol/L Carbon Dioxide (21.6-31.8) mmol/L Anion Gap (4.00-12.00) mmol/L BUN (9.0-27.0) mg/dL Est GFR (CKD-EPI)NonAf (60.0-200.0) BUN/Creatinine Ratio (12.00-20.00) Ratio Glucose (70-110) mg/dL POC Glucose (mg/dL) 50 L 70 L 65 L (75-99) mg/dL Plasma Lactic Acid Eduin (0.7-2.0) mmol/L Calcium (8.4-10.2) mg/dL Magnesium (1.6-2.3) mg/dL Iron (50-170) ug/dL % Saturation (12.00-45.00) Total Bilirubin (0.2-1.2) mg/dL AST (13-35) U/L ALT (8-44) U/L Alkaline Phosphatase (41-126) U/L Ammonia (<30) umol/L Lactate Dehydrogenase (120-246) U/L Total Protein (6.3-8.2) g/dL Albumin (3.80-4.90) g/dL Globulin (1.6-3.3) g/dL Albumin/Globulin Ratio (1.60-3.17) g/dL CA 27-29 (0.0-38.5) U/mL Vitamin B12 (211-911) pg/mL Procalcitonin (0.02-0.09) ng/mL 12/09/20 12/09/20 12/09/20 Range/Units 01:34 02:31 02:51 WBC (4.50-10.00) X 10*3/uL RBC (4.10-5.20) X 10*6/uL MCV (80.0-97.0) fL MCH (27.0-32.0) pg MCHC (32.0-37.0) g/dL RDW (11.5-14.5) % Plt Count (140-440) X 10*3/uL Absolute Nucleated RBC (0.00-0.00) X 10*3/uL Neutrophils # (Manual) (1.3-7.7) k/uL Lymphocytes # (Manual) (1.0-4.8) k/uL Monocytes # (Manual) (0-1.0) k/uL NRBC/100 WBC Diff (0.0-0.0) /100 WBCS PT (9.0-12.0) sec INR (<1.2) APTT (22.0-30.0) sec Fibrinogen (200-500) mg/dL D-Dimer (<0.60) mg/L FEU ABG pH (7.35-7.45) ABG pCO2 (35-45) mmHg ABG pO2 (83-108) mmHg ABG HCO3 (21-25) mmol/L ABG Total CO2 (19-24) mmol/L ABG O2 Saturation (94-97) % Sodium (135-145) mmol/L Potassium (3.5-5.1) mmol/L Chloride (96-109) mmol/L Carbon Dioxide (21.6-31.8) mmol/L Anion Gap (4.00-12.00) mmol/L BUN (9.0-27.0) mg/dL Est GFR (CKD-EPI)NonAf (60.0-200.0) BUN/Creatinine Ratio (12.00-20.00) Ratio Glucose (70-110) mg/dL POC Glucose (mg/dL) 72 L 128 H 142 H (75-99) mg/dL Plasma Lactic Acid Eduin (0.7-2.0) mmol/L Calcium (8.4-10.2) mg/dL Magnesium (1.6-2.3) mg/dL Iron (50-170) ug/dL % Saturation (12.00-45.00) Total Bilirubin (0.2-1.2) mg/dL AST (13-35) U/L ALT (8-44) U/L Alkaline Phosphatase (41-126) U/L Ammonia (<30) umol/L Lactate Dehydrogenase (120-246) U/L Total Protein (6.3-8.2) g/dL Albumin (3.80-4.90) g/dL Globulin (1.6-3.3) g/dL Albumin/Globulin Ratio (1.60-3.17) g/dL CA 27-29 (0.0-38.5) U/mL Vitamin B12 (211-911) pg/mL Procalcitonin (0.02-0.09) ng/mL 12/09/20 12/09/20 12/09/20 Range/Units 03:00 03:00 03:00 WBC 19.8 H (4.50-10.00) X 10*3/uL RBC (4.10-5.20) X 10*6/uL MCV (80.0-97.0) fL MCH 22.9 L (27.0-32.0) pg MCHC 25.7 L (32.0-37.0) g/dL RDW 17.7 H (11.5-14.5) % Plt Count 50 L (140-440) X 10*3/uL Absolute Nucleated RBC (0.00-0.00) X 10*3/uL Neutrophils # (Manual) 18.20 H (1.3-7.7) k/uL Lymphocytes # (Manual) 0.40 L (1.0-4.8) k/uL Monocytes # (Manual) 1.19 H (0-1.0) k/uL NRBC/100 WBC Diff (0.0-0.0) /100 WBCS PT (9.0-12.0) sec INR (<1.2) APTT (22.0-30.0) sec Fibrinogen (200-500) mg/dL D-Dimer (<0.60) mg/L FEU ABG pH (7.35-7.45) ABG pCO2 (35-45) mmHg ABG pO2 (83-108) mmHg ABG HCO3 (21-25) mmol/L ABG Total CO2 (19-24) mmol/L ABG O2 Saturation (94-97) % Sodium (135-145) mmol/L Potassium 2.6 L* (3.5-5.1) mmol/L Chloride 128 H (96-109) mmol/L Carbon Dioxide <5 L* (21.6-31.8) mmol/L Anion Gap (4.00-12.00) mmol/L BUN 20 H (9.0-27.0) mg/dL Est GFR (CKD-EPI)NonAf (60.0-200.0) BUN/Creatinine Ratio (12.00-20.00) Ratio Glucose 101 H (70-110) mg/dL POC Glucose (mg/dL) (75-99) mg/dL Plasma Lactic Acid Eduin 11.1 H* (0.7-2.0) mmol/L Calcium 3.9 L* (8.4-10.2) mg/dL Magnesium 1.3 L (1.6-2.3) mg/dL Iron (50-170) ug/dL % Saturation (12.00-45.00) Total Bilirubin 2.3 H (0.2-1.2) mg/dL AST 532 H (13-35) U/L ALT 128 H (8-44) U/L Alkaline Phosphatase (41-126) U/L Ammonia 155 H (<30) umol/L Lactate Dehydrogenase (120-246) U/L Total Protein 2.5 L (6.3-8.2) g/dL Albumin <1.0 L (3.80-4.90) g/dL Globulin (1.6-3.3) g/dL Albumin/Globulin Ratio (1.60-3.17) g/dL CA 27-29 (0.0-38.5) U/mL Vitamin B12 (211-911) pg/mL Procalcitonin (0.02-0.09) ng/mL 12/09/20 12/09/20 12/09/20 Range/Units 03:12 03:19 04:15 WBC (4.50-10.00) X 10*3/uL RBC (4.10-5.20) X 10*6/uL MCV (80.0-97.0) fL MCH (27.0-32.0) pg MCHC (32.0-37.0) g/dL RDW (11.5-14.5) % Plt Count (140-440) X 10*3/uL Absolute Nucleated RBC (0.00-0.00) X 10*3/uL Neutrophils # (Manual) (1.3-7.7) k/uL Lymphocytes # (Manual) (1.0-4.8) k/uL Monocytes # (Manual) (0-1.0) k/uL NRBC/100 WBC Diff (0.0-0.0) /100 WBCS PT (9.0-12.0) sec INR (<1.2) APTT (22.0-30.0) sec Fibrinogen (200-500) mg/dL D-Dimer (<0.60) mg/L FEU ABG pH <6.80 L* (7.35-7.45) ABG pCO2 (35-45) mmHg ABG pO2 274 H (83-108) mmHg ABG HCO3 6 L* (21-25) mmol/L ABG Total CO2 8 L (19-24) mmol/L ABG O2 Saturation 98.3 H (94-97) % Sodium (135-145) mmol/L Potassium (3.5-5.1) mmol/L Chloride (96-109) mmol/L Carbon Dioxide (21.6-31.8) mmol/L Anion Gap (4.00-12.00) mmol/L BUN (9.0-27.0) mg/dL Est GFR (CKD-EPI)NonAf (60.0-200.0) BUN/Creatinine Ratio (12.00-20.00) Ratio Glucose (70-110) mg/dL POC Glucose (mg/dL) 127 H 202 H (75-99) mg/dL Plasma Lactic Acid Eduin (0.7-2.0) mmol/L Calcium (8.4-10.2) mg/dL Magnesium (1.6-2.3) mg/dL Iron (50-170) ug/dL % Saturation (12.00-45.00) Total Bilirubin (0.2-1.2) mg/dL AST (13-35) U/L ALT (8-44) U/L Alkaline Phosphatase (41-126) U/L Ammonia (<30) umol/L Lactate Dehydrogenase (120-246) U/L Total Protein (6.3-8.2) g/dL Albumin (3.80-4.90) g/dL Globulin (1.6-3.3) g/dL Albumin/Globulin Ratio (1.60-3.17) g/dL CA 27-29 (0.0-38.5) U/mL Vitamin B12 (211-911) pg/mL Procalcitonin (0.02-0.09) ng/mL 12/09/20 12/09/20 12/09/20 Range/Units 04:25 04:25 06:07 WBC (4.50-10.00) X 10*3/uL RBC (4.10-5.20) X 10*6/uL MCV (80.0-97.0) fL MCH (27.0-32.0) pg MCHC (32.0-37.0) g/dL RDW (11.5-14.5) % Plt Count (140-440) X 10*3/uL Absolute Nucleated RBC (0.00-0.00) X 10*3/uL Neutrophils # (Manual) (1.3-7.7) k/uL Lymphocytes # (Manual) (1.0-4.8) k/uL Monocytes # (Manual) (0-1.0) k/uL NRBC/100 WBC Diff (0.0-0.0) /100 WBCS PT 86.9 H (9.0-12.0) sec INR 8.9 H* (<1.2) APTT >200.0 H* (22.0-30.0) sec Fibrinogen (200-500) mg/dL D-Dimer >34.10 H (<0.60) mg/L FEU ABG pH 6.81 L* (7.35-7.45) ABG pCO2 (35-45) mmHg ABG pO2 110 H (83-108) mmHg ABG HCO3 7 L* (21-25) mmol/L ABG Total CO2 8 L (19-24) mmol/L ABG O2 Saturation 93.0 L (94-97) % Sodium (135-145) mmol/L Potassium (3.5-5.1) mmol/L Chloride (96-109) mmol/L Carbon Dioxide (21.6-31.8) mmol/L Anion Gap (4.00-12.00) mmol/L BUN (9.0-27.0) mg/dL Est GFR (CKD-EPI)NonAf (60.0-200.0) BUN/Creatinine Ratio (12.00-20.00) Ratio Glucose (70-110) mg/dL POC Glucose (mg/dL) (75-99) mg/dL Plasma Lactic Acid Eduin (0.7-2.0) mmol/L Calcium (8.4-10.2) mg/dL Magnesium (1.6-2.3) mg/dL Iron (50-170) ug/dL % Saturation (12.00-45.00) Total Bilirubin (0.2-1.2) mg/dL AST (13-35) U/L ALT (8-44) U/L Alkaline Phosphatase (41-126) U/L Ammonia (<30) umol/L Lactate Dehydrogenase (120-246) U/L Total Protein (6.3-8.2) g/dL Albumin (3.80-4.90) g/dL Globulin (1.6-3.3) g/dL Albumin/Globulin Ratio (1.60-3.17) g/dL CA 27-29 112.8 H (0.0-38.5) U/mL Vitamin B12 (211-911) pg/mL Procalcitonin (0.02-0.09) ng/mL 12/09/20 12/09/20 12/09/20 Range/Units 06:50 08:00 08:03 WBC (4.50-10.00) X 10*3/uL RBC (4.10-5.20) X 10*6/uL MCV (80.0-97.0) fL MCH (27.0-32.0) pg MCHC (32.0-37.0) g/dL RDW (11.5-14.5) % Plt Count (140-440) X 10*3/uL Absolute Nucleated RBC (0.00-0.00) X 10*3/uL Neutrophils # (Manual) (1.3-7.7) k/uL Lymphocytes # (Manual) (1.0-4.8) k/uL Monocytes # (Manual) (0-1.0) k/uL NRBC/100 WBC Diff (0.0-0.0) /100 WBCS PT (9.0-12.0) sec INR (<1.2) APTT (22.0-30.0) sec Fibrinogen (200-500) mg/dL D-Dimer (<0.60) mg/L FEU ABG pH 6.82 L* (7.35-7.45) ABG pCO2 49 H (35-45) mmHg ABG pO2 (83-108) mmHg ABG HCO3 8 L* (21-25) mmol/L ABG Total CO2 10 L (19-24) mmol/L ABG O2 Saturation 88.2 L (94-97) % Sodium (135-145) mmol/L Potassium (3.5-5.1) mmol/L Chloride (96-109) mmol/L Carbon Dioxide (21.6-31.8) mmol/L Anion Gap (4.00-12.00) mmol/L BUN (9.0-27.0) mg/dL Est GFR (CKD-EPI)NonAf (60.0-200.0) BUN/Creatinine Ratio (12.00-20.00) Ratio Glucose (70-110) mg/dL POC Glucose (mg/dL) 256 H 306 H (75-99) mg/dL Plasma Lactic Acid Eduin (0.7-2.0) mmol/L Calcium (8.4-10.2) mg/dL Magnesium (1.6-2.3) mg/dL Iron (50-170) ug/dL % Saturation (12.00-45.00) Total Bilirubin (0.2-1.2) mg/dL AST (13-35) U/L ALT (8-44) U/L Alkaline Phosphatase (41-126) U/L Ammonia (<30) umol/L Lactate Dehydrogenase (120-246) U/L Total Protein (6.3-8.2) g/dL Albumin (3.80-4.90) g/dL Globulin (1.6-3.3) g/dL Albumin/Globulin Ratio (1.60-3.17) g/dL CA 27-29 (0.0-38.5) U/mL Vitamin B12 (211-911) pg/mL Procalcitonin (0.02-0.09) ng/mL 12/09/20 Range/Units 08:50 WBC (4.50-10.00) X 10*3/uL RBC (4.10-5.20) X 10*6/uL MCV (80.0-97.0) fL MCH (27.0-32.0) pg MCHC (32.0-37.0) g/dL RDW (11.5-14.5) % Plt Count (140-440) X 10*3/uL Absolute Nucleated RBC (0.00-0.00) X 10*3/uL Neutrophils # (Manual) (1.3-7.7) k/uL Lymphocytes # (Manual) (1.0-4.8) k/uL Monocytes # (Manual) (0-1.0) k/uL NRBC/100 WBC Diff (0.0-0.0) /100 WBCS PT (9.0-12.0) sec INR (<1.2) APTT (22.0-30.0) sec Fibrinogen <70 L* (200-500) mg/dL D-Dimer (<0.60) mg/L FEU ABG pH (7.35-7.45) ABG pCO2 (35-45) mmHg ABG pO2 (83-108) mmHg ABG HCO3 (21-25) mmol/L ABG Total CO2 (19-24) mmol/L ABG O2 Saturation (94-97) % Sodium (135-145) mmol/L Potassium (3.5-5.1) mmol/L Chloride (96-109) mmol/L Carbon Dioxide (21.6-31.8) mmol/L Anion Gap (4.00-12.00) mmol/L BUN (9.0-27.0) mg/dL Est GFR (CKD-EPI)NonAf (60.0-200.0) BUN/Creatinine Ratio (12.00-20.00) Ratio Glucose (70-110) mg/dL POC Glucose (mg/dL) (75-99) mg/dL Plasma Lactic Acid Eduin (0.7-2.0) mmol/L Calcium (8.4-10.2) mg/dL Magnesium (1.6-2.3) mg/dL Iron (50-170) ug/dL % Saturation (12.00-45.00) Total Bilirubin (0.2-1.2) mg/dL AST (13-35) U/L ALT (8-44) U/L Alkaline Phosphatase (41-126) U/L Ammonia (<30) umol/L Lactate Dehydrogenase (120-246) U/L Total Protein (6.3-8.2) g/dL Albumin (3.80-4.90) g/dL Globulin (1.6-3.3) g/dL Albumin/Globulin Ratio (1.60-3.17) g/dL CA 27-29 (0.0-38.5) U/mL Vitamin B12 (211-911) pg/mL Procalcitonin (0.02-0.09) ng/mL Microbiology - Last 24 Hours (Table) 12/09/20 02:07 Sputum Culture - Preliminary Sputum 12/03/20 23:59 Blood Culture - Preliminary Blood No Growth after 120 hours 12/03/20 23:54 Blood Culture - Preliminary Blood No Growth after 120 hours Assessment and Plan Assessment: Impression: Acute hypoxic respiratory failure with severe acute metabolic acidosis and hypotension, secondary to disseminated intravascular coagulation, this is most likely secondary to her presumptive underlying malignancy or underlying infection although the infection is less likely. Multiple reticular nodular infiltrates/pulmonary nodules, highly suspicious for malignancy, strongly doubt infection. But we will continue Zosyn and vancomycin added Elevated alpha-fetoprotein and liver enzymes. With abnormal MRI of the liver again the digestive of malignancy however the radiologist is entertaining possible lymphoma. All suggestive of metastatic disease. Or possibly lymphoma. Benign essential hypertension. Acute metabolic encephalopathy with elevated ammonia level on presentation. Sec ondary to abnormal liver enzymes and infiltrative process affecting the liver based on MRI questionable lymphoma or malignancy. Type 2 diabetes. Possible urinary tract infection. Chronic urinary stress incontinence. Recommendation: Continue ventilatory support. Daughter updated on her condition as soon as I evaluated the patient in the ICU. She was already aware of her condition going downhill. Continue hemodynamic support, patient received pressors in the form of norepinephrine and vasopressin and multiple fluid boluses. Transfuse patient with cryoprecipitate, and fresh frozen plasma, Continue empiric antibiotics including Zosyn and vancomycin. Hematology consultation, discussed this patient over the phone was Dr. Enriquez Left subclavian central no was placed for fluid management and management of her pressors. Prognosis is extremely poor. Again shortly after the patient's daughter a rrived, CODE STATUS was changed to DO NOT RESUSCITATE, and the patient passed peacefully shortly after. Critical care time is over 40 minutes not including the time placed on central line placement Time with Patient: Greater than 30
--- NOTE | 2020-12-09 11:34 | PCN ---
PROCEDURE NOTE PROCEDURE PERFORMED: Placement of the left subclavian triple-lumen catheter. PREOPERATIVE DIAGNOSIS: Acute hypoxic respiratory failure secondary to disseminated intravascular coagulation, and bleeding. POSTOPERATIVE DIAGNOSIS: Acute hypoxic respiratory failure secondary to disseminated intravascular coagulation, and bleeding. ANESTHESIA: 2 mL of 1% lidocaine. PROCEDURE: The patient was placed in the Trendelenburg position, the area of the left subclavian region was prepared in a sterile fashion. The drapes were applied. The area was locally anesthetized. Then using the infraclavicular approach, the left subclavian vein was easily cannulated, and a guidewire was placed. The area of the guidewire was dilated. Then a triple-lumen catheter was inserted over the guidewire, and the guidewire was removed. Good blood flow was noted, no evidence of any immediate complications, chest x-ray showed adequate placement and no complications. The line was secured using 3.0 silk sutures. MMODL / IJN: [id number] /
[2020-12-09] MEDS ORDERED: POTASSIUM BICARBONATE/CIT AC 20 MEQ TABLET.EFF PO SCH (12:00)
[2020-12-10] MEDS ORDERED: VANCOMYCIN 1,750 MG in SODIUM CHLORIDE 0.9% 500 ML 500 ML IVPB SCH (02:00)
--- NOTE | 2020-12-12 09:18 | CDI ---
Documentation Clarification Form Mortality Review Date: 12/12/2020 08:58:09 AM From: Dinah Hawk RN, CCDS Admit Date: 12/04/2020 12:21:00 AM Patient Name: Marnie Case Visit Number: [id number] Discharge Date: 12/09/2020 10:15:00 AM ATTENTION: The Clinical Documentation Specialists (CDI) and [facility] Coding Staff appreciate your assistance in clarifying documentation. Please respond to the clarification below the line at the bottom and electronically sign. The CDI & [facility] Coding staff will review the response and follow-up if needed. Please note: Queries are made part of the Legal Health Record. If you have any questions, please contact the author of this message via ITS. Dr. Preet Hughes Hypotension with use of vasopressors, blood product administration, and IVF boluses is documented. Please indicate if there is an additional clinically appropriate diagnosis to accurately reflect this patient's SOI/ROM. Patient history/risk factors: DM2, HTN, fatty liver, EFRA This Admission: acute hypoxic respiratory failure, hepatic encephalopathy, DIC, Possible liver malignancy or lymphoma, Possible UTI Clinical Indicators: 12/09 0140 V/S: HR 61, RR 10, B/P 58/26, Spo2 81% on 100% NRB 12/09 Pulmonary Progress note: "Patient was seen by the physician in house, the pressure was 106/92, pulse ox could not be obtained, patient was hypothermic with a temp of 94. Her ABG reflected significant metabolic acidosis, she was hypotensive, patient was started on vasopressin, norepinephrine, and she was given bicarb drip, given fluid boluses, blood pressure remains marginal. Acute hypoxic respiratory failure with severe acute metabolic acidosis and hypotension, secondary to disseminated intravascular coagulation, this is most likely secondary to her presumptive underlying malignancy or underlying infection although the infection is less likely." 12/09 A-Team Call: "Altered mental status, suspected secondary to hypoglycemia, possibly due to liver disease with metastases. Capillary blood glucose at the bedside was 43.No insulin was given earlier in the night with last insulin dose greater than 24 hours ago. One ampule of D50 was given with subsequent blood glucose 48. 2 additional ampules were given. D10 drip was ordered and the patient was transferred to medical ICU with every hour blood glucose testing. Primary and the intensivists were notified by the RN. Repeat ammonia levels ordered. ABG was ordered.BMP and lactate levels were also ordered. Treatment: 12/09 3 units FFP, 3 units of cryoprecipitate transfused 12/09 3 Amps of D50 and 2 Amps of Bicarb given followed by D5 HCO3 drip 12/09 100mg IV Solucortef x 1 12/09 Levophed titrate for B/P 12/09 Vasopressin .04 units/min 12/09 2L IVF Bolus followed by 100 cc/hr. Please clarify the hypotension and cause further, if known: [ ] Hypovolemic Shock [ ] Septic Shock [ ] Other, please specify [ ] Unable to determine (Template Last Revised: October 2020) MTDD
--- NOTE | 2021-01-01 10:43 | P.DS ---
Providers Date of admission: 12/04/20 00:21 Attending physician: Luís Lomas Consults: 12/04/20 00:16 Consult Physician Urgent Consulting Provider: Tiffanie Faria Consult Reason/Comments: acute cholecystitis Do you want consulting provider notified?: Yes Consult Physician Urgent Consulting Provider: Kathleen Woods Consult Reason/Comments: acute transaminitis Do you want consulting provider notified?: Yes 12/05/20 11:16 Consult Physician Routine Consulting Provider: Johann Ordonez Consult Reason/Comments: b/l pulmonary infilterates Do you want consulting provider notified?: Yes 12/07/20 14:33 Consult Physician Routine Consulting Provider: Kvng Mccurdy Consult Reason/Comments: pulmonary nodules, elevated AFP, liver disease, liver MRI pending Do you want consulting provider notified?: Yes 12/08/20 20:28 Consult Physician Routine Consulting Provider: Luca Singletary Consult Reason/Comments: IPR, Likely underlying ca causing weakness, willing to participate as requi Do you want consulting provider notified?: Yes, Notify in am Primary care physician: Corey Siddiqui [facility] Course: Diagnoses: -Checks x-ray shows bilateral infiltrates. Suspect pneumonia vs edema, and malignant disease also suspected -Possible Hepatitis with some evidence of cirrhosis on CT. -Elevated alpha-fetoprotein, rule out hepatic cancer -Possible hepatic encephalopathy with elevated ammonia -Obesity BMI 32.8 -Diabetes mellitus type 2, chronically on insulin -GERD -Hyperlipidemia -Essential hypertension -Dilated gallbladder. Denies any obvious abdominal symptoms. No Gr sign. No hydronephrosis or surgery team -Obstructive sleep apnea -Hiatal hernia -Chronic urinary stress incontinence Hospital course: From records: This is a 80-year-old patient of Dr. Siddiqui: Was chronic stable medical conditions include diabetes, GERD, hypertension, hyperlipidemia, fatty liver, hiatal hernia, urinary incontinence obstructive sleep apnea. Patient is brought in by the EMS. Per the EMS report patient been complaining of weakness and loss of appetite for the past week. Patient called to sit on a chair and slid off the ground. Did not hit her head. No loss of conscious. While signs noted by the EMS at the incision site included blood pressure 74/50, pulse 88, respirations 16, pulse ox 95% on room air. EKG tracing sinus rhythm Patient not the best of historians and is unclear as to why exactly she was brought in. Denies any fever and chills. Denies any nausea vomiting. She can tell me the place but she cannot tell me the year. Subjective: 12/05/2020 This is a pleasant 80 years old female who presents because of fall. She is confused to the surrounding especially regarding time but she is oriented to place and person, she has also some memory problem and she does not remember why she is in the hospital. She follows commands easily. She is complaining of from dry cough on some dyspnea but no chest pain. She has some increased urinary frequency but no dysuria. She has decreased appetite. She was mildly hypoxic and low 90s of needing liter per minute of oxygen to keep her oxygen saturation above 94%. Rest of Vitas looks stable. showing WBC increased from 16 up to 18 K daily, INR was 2.4 on admission. Her liver enzymes are elevated as well as bilirubin code number is TRENDING down and while bilirubin is still elevated at 3.3. CT of the abdomen and pelvis showing possible pulmonary infiltrates and nodules, cirrhosis which is hepatitis versus metastasis is suspected and dilated gallbladder however surgical team provided patient with no cholecystitis and no need for surgical intervention. Pulmonary lesion is suspected of CHF versus infiltrate versus lymphangitic metastatic disease. Because of this pulmonary team were consulted. GI team on the case and the recommended workup for cirrhosis which is pending, rule out labs for more details Discontinue Zocor for elevated liver enzymes. Stop IV fluids and start the patient on Lasix for 3 days. Continue with cefepime. Also patient is on long acting insulin 16 units per night. Also she is on lactulose but ammonia level is normal. 12/06/2020 Patient is awake and oriented today she is calm sitting in bed and not moving around. She denies any significant symptoms. But she is not eating well stating this morning her breakfast was called. Today she is awake and alert and oriented 3 including the year 2020. She could not remember why she hospital other than she fell but she follow command and her mentation is improved compared to yesterday. She is a little short of breath with dry cough but no chest pain and she holding oxygen saturation of 92% on 2 L oxygen via nasal cannula. She has bilateral leg swelling and she complains from constipation but she is not eating. Pulmonary input is appreciated, as CT of the chest showing diffuse innumerable multifocal obesity and small nodules of bilateral lungs. May represent infectious etiology and they recommended short-term follow-up as an outpatient. She was on cefepime which is switched to Zosyn now. Pro-calcitonin, proBNP and echo are pending She has leukocytosis 18 K, INR 1.9, liver enzymes are trending down but bilirubin is still elevated at 3.2. Hepatitis panel is negative and fetoprotein is elevated and GI team are requesting MRI of the liver. Pulmonary level is high at 46 patient is on lactulose. She is also on Lasix IV 40 mg daily. Advil fluid restriction 12/07/2020 Patient is awake and alert today, she is mildly dyspneic at rest but more with exertion and some dry coughing. She is not eating because of low appetite. She has diarrhea while on lactulose with a goal about 3-4 bowel movements per day. Oxygen saturation at 2 L/m, which is resolved vitals are stable. Patient is going for MRI of the liver today. WBC is 17 K, liver enzymes are the same but bilirubin increased to 5.2, ammonia is normal A today at 18. She remains on Zosyn and IV Lasix 40 mg daily We will keep monitoring 12/08/2020 Patient is more confused today, she told the nurse where she is at the hospital and the ureter bouts when I saw her she could not tell me these aforementioned however she is awake, lethargic, easily arousable to verbal and tactile sunlight but low back to sleep shortly after one answer or 2 answers. She follow commands easily and she denies headache, blurred vision, weakness or numbness. Bilateral segments the same and she still on the liter oxygen via nasal cannula, no CBC today, her INR went up to 2.7 today. Liver enzymes worsened slightly, her bilirubin also increased from 5.2 up to 7.1. However when we checked ammonia level today was normal at 20. MRI of the liver showing significant heterogenic night T throughout the liver couldn't related to an multifocal infiltrative process such as lymphoma in this patient with also a large abdominal lymph nodes. Dilated gallbladder suggestive of cholecystitis Pleural fluid and infiltrates of the lung bases. Patient remains on Zosyn although infection is less likely but will keep antibiotics because her pro- calcitonin was slightly elevated at 0.22 last time.We will recheck her pro- calcitonin tomorrow. Lasix 40 mg IV daily was stopped today. No IV fluids. Zocor remains on hold for elevated liver enzymes. She remains on lactulose to keep bowel movement 3-4 times per day which is the case for her. Hematology oncology services were consulted 12/09/2020 patient transferred to the ICU.Blood glucose was low, corrected Patient is with extremely low blood pressure multiple meds to increase BP and pressors with no urine output. 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 at 9:35 AM, please refer to nursing note for more details Patient Condition at Discharge: Stable Plan - Discharge Summary Discharge Rx Participant: Yes New Discharge Prescriptions: No Action Omeprazole [PriLOSEC] 20 mg PO DAILY Potassium Chloride [Klor-Con 20] 10 meq PO Q48H Furosemide [Lasix] 20 mg PO Q48H Aspirin 81 mg PO DAILY metFORMIN HCL [Glucophage] 500 mg PO BID Cholecalciferol [Vitamin D3] 1,000 unit PO DAILY amLODIPine [Norvasc] 5 mg PO DAILY Insulin Glargine [Lantus] 22 unit SQ HS Pioglitazone HCl 45 mg PO DAILY Losartan Potassium 100 mg PO DAILY Simvastatin [Zocor] 20 mg PO DAILY Discharge Medication List Aspirin 81 mg PO DAILY 01/25/15 [History] Cholecalciferol [Vitamin D3] 1,000 unit PO DAILY 01/25/15 [History] Furosemide [Lasix] 20 mg PO Q48H 01/25/15 [History] Omeprazole [PriLOSEC] 20 mg PO DAILY 01/25/15 [History] Potassium Chloride [Klor-Con 20] 10 meq PO Q48H 01/25/15 [History] metFORMIN HCL [Glucophage] 500 mg PO BID 01/25/15 [History] Insulin Glargine [Lantus] 22 unit SQ HS 05/24/20 [History] Pioglitazone HCl 45 mg PO DAILY 05/24/20 [History] amLODIPine [Norvasc] 5 mg PO DAILY 05/24/20 [History] Losartan Potassium 100 mg PO DAILY 12/03/20 [History] Simvastatin [Zocor] 20 mg PO DAILY 12/04/20 [History] Follow up Appointment(s)/Referral(s): Preet Hughes MD [STAFF PHYSICIAN] - 12/14/20 2:00 pm Corey Siddiqui DO [Primary Care Provider] - 12/12/20 10:40 am Kathleen Woods MD [STAFF PHYSICIAN] - 12/19/20 1:30 pm Discharge Disposition: - Preliminary Cause of Preliminary Cause of : complicated liver disease and possible malignancy
== END 2020-12-09 10:15 | disposition expired | DRG 441 ==
LOC: EC 20:02 → 5NMEDONC 12-04 00:21 → 4SSUR 12-04 17:27 → 2SICU 12-09 01:29
PROVIDERS: ADMIT Hospitalist; ATTEND Hospitalist
PROC: 5A1935Z Respiratory Ventilation, Less than 24 Consecutive Hours (ICD-10-PCS; principal; 2020-12-09)
PROC: 02HV33Z Insertion of Infusion Device into Superior Vena Cava, Percutaneous Approach (ICD-10-PCS; 2020-12-09)
PROC: 0BH17EZ Insertion of Endotracheal Airway into Trachea, Via Natural or Artificial Opening (ICD-10-PCS; 2020-12-09)
PROC: 5A1935Z Respiratory Ventilation, Less than 24 Consecutive Hours (ICD-10-PCS; 2020-12-09)
PROC: 3E033XZ Introduction of Vasopressor into Peripheral Vein, Percutaneous Approach (ICD-10-PCS; 2020-12-09)
PROC: 0BH17EZ Insertion of Endotracheal Airway into Trachea, Via Natural or Artificial Opening (ICD-10-PCS; 2020-12-09)
PROC: 30243K1 Transfusion of Nonautologous Frozen Plasma into Central Vein, Percutaneous Approach (ICD-10-PCS; 2020-12-09)
PROC: 30243M1 Transfusion of Nonautologous Plasma Cryoprecipitate into Central Vein, Percutaneous Approach (ICD-10-PCS; 2020-12-09)
PROC: 03HY32Z Insertion of Monitoring Device into Upper Artery, Percutaneous Approach (ICD-10-PCS; 2020-12-09)
PROC: 4A133B1 Monitoring of Arterial Pressure, Peripheral, Percutaneous Approach (ICD-10-PCS; 2020-12-09)
PROC: 4A133J1 Monitoring of Arterial Pulse, Peripheral, Percutaneous Approach (ICD-10-PCS; 2020-12-09)
DX: K72.90 Hepatic failure, unspecified without coma (principal); J18.9 Pneumonia, unspecified organism; G93.41 Metabolic encephalopathy; D65 Disseminated intravascular coagulation [defibrination syndrome]; J80 Acute respiratory distress syndrome; N39.0 Urinary tract infection, site not specified; K82.1 Hydrops of gallbladder; R18.8 Other ascites; E87.2 Acidosis; K81.0 Acute cholecystitis; C85.98 Non-Hodgkin lymphoma, unspecified, lymph nodes of multiple sites; C78.7 Secondary malignant neoplasm of liver and intrahepatic bile duct; J81.1 Chronic pulmonary edema; Z66 Do not resuscitate; W19.XXXA Unspecified fall, initial encounter; I11.9 Hypertensive heart disease without heart failure; K21.9 Gastro-esophageal reflux disease without esophagitis; R57.1 Hypovolemic shock; Z79.4 Long term (current) use of insulin; Z20.822 Contact with and (suspected) exposure to COVID-19; K74.60 Unspecified cirrhosis of liver; Z85.3 Personal history of malignant neoplasm of breast; E04.1 Nontoxic single thyroid nodule; Z79.82 Long term (current) use of aspirin; Z96.1 Presence of intraocular lens; E78.5 Hyperlipidemia, unspecified; L98.9 Disorder of the skin and subcutaneous tissue, unspecified; Z79.899 Other long term (current) drug therapy; Z90.710 Acquired absence of both cervix and uterus; R41.3 Other amnesia; E66.9 Obesity, unspecified; Z68.32 Body mass index [BMI] 32.0-32.9, adult; G47.33 Obstructive sleep apnea (adult) (pediatric); K44.9 Diaphragmatic hernia without obstruction or gangrene; Z87.891 Personal history of nicotine dependence; N39.3 Stress incontinence (female) (male); Z90.13 Acquired absence of bilateral breasts and nipples; R63.0 Anorexia; Y92.009 Unspecified place in unspecified non-institutional (private) residence as the place of occurrence of the external cause; K59.00 Constipation, unspecified; E11.649 Type 2 diabetes mellitus with hypoglycemia without coma; Z88.1 Allergy status to other antibiotic agents
CPT/HCPCS: 36410; 36415; 36600; 70450; 71045; 71046; 71250; 74177; 74183; 76705; 76937; 80048; 80053; 80074; 80076; 81001; 82103; 82105; 82140; 82150; 82390; 82550; 82607; 82728; 82746; 82805; 83010; 83516; 83540; 83550; 83605; 83615; 83690; 83735; 83880; 84145; 84165; 84443; 84484; 85025; 85027; 85379; 85384; 85610; 85730; 86038; 86300; 86769; 86850; 86900; 86901; 87040; 87070; 87086; 87205; 87635; 93005; 93306; 94002; 96360; 96361; 99285